=== PATIENT | female | born 1970 ===

== ENCOUNTER 2020-07-06 07:43 | Outpatient (REF) | payer OTHER, SELFPAY | END 2020-07-06 07:44 | disposition home or self-care (01) | LOC: HO.LAB 07:43 | PROVIDERS: Visit Provider Internal Medicine | DX: Z20.828 Contact with and (suspected) exposure to other viral communicable diseases (principal) | CPT/HCPCS: C9803; U0003 ==

== ENCOUNTER 2020-09-24 06:56 | Outpatient (REF) | payer OTHER, SELFPAY | END 2020-09-24 06:57 | disposition home or self-care (01) | LOC: HO.LAB 06:56 | PROVIDERS: Visit Provider Internal Medicine | DX: Z20.822 Contact with and (suspected) exposure to COVID-19 (principal) | CPT/HCPCS: 36415; C9803; U0003; U0005 ==

== ENCOUNTER 2020-10-26 16:22 | Outpatient (REF) | payer OTHER, SELFPAY ==
--- NOTE | ~2020-10-26 | XR_ITS ---
EXAMINATION: XR ABDOMEN WITH DECUBITUS VIEWS CLINICAL INDICATION: Constipation. COMPARISON: None TECHNIQUE: 2 views of the abdomen were obtained. FINDINGS: There is a nonobstructive bowel gas pattern. Gas and stool are seen distally to the rectum without significant stool burden. And IUD overlies the mid pelvis. The osseous structures are unremarkable. XR/XR abdomen w decubitus IMPRESSION: Nonobstructive bowel gas pattern. No significant stool burden.
[2020-10-26 17:38] LABS: MANUAL DIFF FLAG NO
[2020-10-26 17:55] LABS: Basophils Absolute Auto 0.1 X10*3/uL (0.0-0.2); Basophils Percent Auto 0.4 % (0-2); Eosinophils Absolute Auto 0.2 X10*3/uL (0.0-0.4); Eosinophils Percent Auto 1.8 % (0-4); Hematocrit 41.1 % (37-47); Hemoglobin 13.9 g/dl (12.0-16.0); Imm Gran Abs Auto 0.05 X10*3/uL (0.00-0.03); Imm Gran Pct Auto 0.4 % (0.0-0.4); Lymphocytes Percent Auto 23.8 % (20-40); Mean Corpuscular HGB Conc 33.8 g/dl (31.0-35.0); Mean Corpuscular Hemoglobin 33.9 pg (27.0-33.0); Mean Corpuscular Volume 100.2 fL (80-98); Mean Platelet Volume 11.7 fL (9.4-12.3); Monocytes Absolute Auto 0.9 X10*3/uL (0.1-1.2); Monocytes Percent Auto 7.2 % (2-11); Neutrophils Absolute Auto 8.3 X10*3/uL (2.0-8.3); Neutrophils Percent Auto 66.4 % (45-73); Platelet Count 255 X10*3/uL (160-400); Red Cell Distribution Width 11.7 % (11.0-16.0); White Blood Count 12.5 X10*3/uL (4.8-10.8)
[2020-10-26 18:36] LABS: TSH reflex Free T4 1.46 uIU/mL (0.32-4.0)
== END 2020-10-26 16:23 | disposition home or self-care (01) ==
LOC: HO.LAB 16:22
PROVIDERS: PCP Internal Medicine; Visit Provider Nurse Practitioner Family
DX: K59.00 Constipation, unspecified (principal); E78.00 Pure hypercholesterolemia, unspecified
CPT/HCPCS: 36415; 74021; 84443; 85025

== ENCOUNTER 2020-10-27 10:24 | Outpatient (REF) | payer OTHER, SELFPAY ==
[2020-10-27 11:31] LABS: Alanine Aminotransferase 25 U/L (0-31); Albumin Level 3.9 g/dL (3.5-5.0); Alkaline Phosphatase 69 U/L (39-117); Anion Gap 13 (12-20); Aspartate Amino Transferase 23 U/L (5-31); Bilirubin Total 0.6 mg/dL (0.0-1.0); Blood Urea Nitrogen 8 mg/dL (9-16); Calcium 8.4 mg/dL (8.4-10.2); Carbon Dioxide 27 mmol/L (22-29); Chloride 104 mmol/L (96-108); Cholesterol 207 mg/dL; Estimated Glomerular Filt Rate > 60; Glucose Fasting 96 mg/dL (60-99); HDL Cholesterol 40 mg/dL; LDL Cholesterol Calculated 112 mg/dl; Potassium 3.8 mmol/L (3.3-5.1); Sodium 140 mmol/L (135-145); Total Protein 6.6 g/dL (6.5-8.0); Triglycerides 279 mg/dL
== END 2020-10-27 10:25 | disposition home or self-care (01) ==
LOC: HO.LAB 10:24
PROVIDERS: Visit Provider Internal Medicine
DX: E78.5 Hyperlipidemia, unspecified (principal); E78.00 Pure hypercholesterolemia, unspecified
CPT/HCPCS: 36415; 80053; 80061

== ENCOUNTER 2020-12-07 08:07 | Outpatient (REF) | payer OTHER, SELFPAY ==
[2020-12-07 09:40] LABS: MANUAL DIFF FLAG NO
[2020-12-07 09:57] LABS: Basophils Percent Auto 0.4 % (0-2); Eosinophils Absolute Auto 0.3 X10*3/uL (0.0-0.4); Eosinophils Percent Auto 2.8 % (0-4); Hematocrit 42.7 % (37-47); Hemoglobin 14.1 g/dl (12.0-16.0); Imm Gran Abs Auto 0.05 X10*3/uL (0.00-0.03); Imm Gran Pct Auto 0.5 % (0.0-0.4); Lymphocytes Absolute Auto 2.2 X10*3/uL (1.2-4.9); Mean Corpuscular Hemoglobin 32.9 pg (27.0-33.0); Mean Corpuscular Volume 99.8 fL (80-98); Mean Platelet Volume 11.6 fL (9.4-12.3); Monocytes Absolute Auto 0.6 X10*3/uL (0.1-1.2); Monocytes Percent Auto 6.2 % (2-11); Neutrophils Absolute Auto 6.9 X10*3/uL (2.0-8.3); Neutrophils Percent Auto 68.1 % (45-73); Platelet Count 236 X10*3/uL (160-400); Red Blood Count 4.28 X10*6/uL (4.20-5.50); Red Cell Distribution Width 11.8 % (11.0-16.0); White Blood Count 10.1 X10*3/uL (4.8-10.8)
== END 2020-12-07 08:08 | disposition home or self-care (01) ==
LOC: HO.LAB 08:07
PROVIDERS: PCP Internal Medicine; Visit Provider Internal Medicine
DX: D72.819 Decreased white blood cell count, unspecified (principal)
CPT/HCPCS: 36415; 85025

== ENCOUNTER 2020-12-20 15:20 | Outpatient (REF) | payer OTHER, SELFPAY ==
[2020-12-21 13:57] LABS: CRP High Sensitivity 9.5 mg/L
[2020-12-21 14:21] LABS: Transglutaminase Ab IgG 2 U/mL; Transglutaminase IgA 1 U/mL
== END 2020-12-20 15:21 | disposition home or self-care (01) ==
LOC: HO.LAB 15:20
PROVIDERS: PCP Internal Medicine; Visit Provider Nurse Practitioner Family
DX: R19.7 Diarrhea, unspecified (principal); R10.13 Epigastric pain; K64.9 Unspecified hemorrhoids; R74.8 Abnormal levels of other serum enzymes; R10.11 Right upper quadrant pain; Z83.79 Family history of other diseases of the digestive system
CPT/HCPCS: 36415; 83516; 86141; 99202

== ENCOUNTER 2020-12-26 17:04 | Outpatient (REF) | payer OTHER, SELFPAY ==
[2020-12-26 17:58] LABS: Leukocytes Stool Qualitative NEGATIVE (NEGATIVE)
[2020-12-27 08:49] LABS: CDIFF Ag Negative (Negative); CDIFF Internal ctrl Dots and bkg OK (V); CDiff Toxin Negative (Negative)
== END 2020-12-26 17:05 | disposition home or self-care (01) ==
LOC: HO.LNP 17:04
PROVIDERS: Visit Provider Nurse Practitioner Family
DX: R10.13 Epigastric pain (principal); R19.7 Diarrhea, unspecified
CPT/HCPCS: 87045; 87046; 87177; 87209; 87324; 87338; 87449; 89055

== ENCOUNTER 2021-01-07 08:17 | Outpatient (REF) | payer OTHER, SELFPAY ==
--- NOTE | ~2021-01-07 | US_ITS ---
EXAMINATION: US ABDOMEN COMPLETE CLINICAL INFORMATION: Epigastric pain. COMPARISON: None TECHNIQUE: Real-time imaging of the abdominal viscera. FINDINGS: PANCREAS: Normal. ABDOMINAL AORTA: The proximal, mid, and distal segments are normal in caliber. INFERIOR VENA CAVA: Visualized portions are normal. LIVER: Liver echotexture is increased. The liver is normal in size. The liver contour is normal. No focal hepatic lesion. There is no intrahepatic biliary duct dilatation seen. GALLBLADDER: Normal. The gallbladder is physiologically distended without evidence of stones, sludge, polyps, wall thickening or pericholecystic fluid. COMMON BILE DUCT: Normal in caliber measuring 0.3 cm in diameter. RIGHT KIDNEY: Normal. No hydronephrosis. No renal calculi or focal parenchymal lesions. The kidney measures 11.3 cm in maximum dimension. LEFT KIDNEY: Normal. No hydronephrosis. No renal calculi or focal parenchymal lesions. The kidney measures 10.4 cm in maximum dimension. SPLEEN: Normal. The spleen measures 8.2 cm in maximum dimension. FREE FLUID: None. US/US abdomen complete IMPRESSION: Echogenic liver probably representing fatty infiltration otherwise unremarkable exam
== END 2021-01-07 08:18 | disposition home or self-care (01) ==
LOC: HO.US 08:17
PROVIDERS: Visit Provider Nurse Practitioner Family
DX: R10.13 Epigastric pain (principal)
CPT/HCPCS: 76700

== ENCOUNTER 2021-01-22 15:09 | Outpatient (REF) | payer OTHER, SELFPAY ==
[2021-01-22 18:02] LABS: Lipase 22 U/L (8-78)
== END 2021-01-22 15:10 | disposition home or self-care (01) ==
LOC: HO.LAB 15:09
PROVIDERS: PCP Internal Medicine; Visit Provider Nurse Practitioner Family
DX: R10.9 Unspecified abdominal pain (principal); R19.7 Diarrhea, unspecified; R14.0 Abdominal distension (gaseous)
CPT/HCPCS: 36415; 83690; 99212

== ENCOUNTER → 2021-02-26 14:35 | Outpatient (BNVA) | payer OTHER, SELFPAY | PROVIDERS: Visit Provider Nurse Practitioner Family ==

== ENCOUNTER 2021-02-27 14:38 | Outpatient (REF) | payer OTHER, SELFPAY ==
[2021-02-27 15:17] LABS: Hematocrit 42.2 % (37-47); Hemoglobin 14.5 g/dl (12.0-16.0); Mean Corpuscular HGB Conc 34.4 g/dl (31.0-35.0); Mean Corpuscular Volume 98.8 fL (80-98); Mean Platelet Volume 11.2 fL (9.4-12.3); Platelet Count 269 X10*3/uL (160-400); Red Blood Count 4.27 X10*6/uL (4.20-5.50); Red Cell Distribution Width 11.7 % (11.0-16.0); White Blood Count 8.3 X10*3/uL (4.8-10.8)
[2021-02-27 16:56] LABS: Syphilis Screen Nonreactive (Nonreactive)
[2021-02-28 02:40] LABS: CT PCR NOT DETECTED (Not Detect.); NG PCR NOT DETECTED (Not Detect.)
[2021-02-28 08:53] LABS: BV Int Neg Control Negative (Negative); BV Int Pos Control Positive (Positive)
[2021-02-28 11:50] LABS: HBsAGNum1 0.17 S/CO (0.00-0.99); HIV AB/AG Nonreactive (Nonreactive); HIV Num 1 0.09 S/CO (0.00-0.99); Hepatitis B Surface Antigen Negative (Negative)
== END 2021-02-27 14:39 | disposition home or self-care (01) ==
LOC: HO.LAB 14:38
PROVIDERS: Obstetrics & Gynecology; PCP Internal Medicine; Visit Provider Nurse Practitioner Family
DX: Z01.411 Encounter for gynecological examination (general) (routine) with abnormal findings (principal); Z01.84 Encounter for antibody response examination; Z11.3 Encounter for screening for infections with a predominantly sexual mode of transmission; Z11.4 Encounter for screening for human immunodeficiency virus [HIV]; T83.32XA Displacement of intrauterine contraceptive device, initial encounter
CPT/HCPCS: 36415; 85027; 86780; 87340; 87389; 87480; 87491; 87510; 87591; 87660

== ENCOUNTER 2021-03-18 16:13 | Outpatient (REF) | payer OTHER, SELFPAY ==
--- NOTE | ~2021-03-18 | US_ITS ---
EXAMINATION: US PELVIC COMPLETE CLINICAL INFORMATION: Displacement of IUD. Vaginal bleeding. COMPARISON: None TECHNIQUE: Transabdominal and transvaginal imaging of pelvis is performed. FINDINGS: The uterus is anteverted and anteflexed measuring 10.5 cm in length, 7.9 cm in AP and 8.7 cm in transverse dimension. There are multiple uterine fibroids seen. 1. A 4.3 x 4.1 x 3.5 cm fibroid in posterior fundus of uterus. Previously measured 4.0 x 3.3 x 3.3 cm. 2. Fibroid within the lower posterior body of uterus measures 3.1 x 3.2 x 3.2 cm. Previously it measured 2.4 x 2.5 x 2.7 cm. 3. Fibroid within the anterior upper body of uterus measures 2.2 x 1.6 x 1.9 cm. Previously it measured 1.6 x 1.5 x 1.4 cm. 4. New fibroid lesion in the posterior body of uterus measures 3.5 x 3.4 x 3.4 cm. Previously not seen. There is an echogenic IUD visualized in correct position within the endometrial canal. The endometrial thickness is 0.7 cm. Both ovaries are not visualized. There is no free fluid in the cul-de-sac. US/US pelvic and transvaginal IMPRESSION: IUD in correct position within the endometrial canal with mild endometrial thickening measuring 0.7 cm. Multiple uterine fibroids as described above. No free fluid seen in the cul-de-sac.
== END 2021-03-18 16:14 | disposition home or self-care (01) ==
LOC: HO.US 16:13
PROVIDERS: Visit Provider Obstetrics & Gynecology
DX: T83.32XA Displacement of intrauterine contraceptive device, initial encounter (principal)
CPT/HCPCS: 76830; 76856

== ENCOUNTER 2021-03-20 | Outpatient (REF) | payer OTHER, SELFPAY | END 2021-03-20 00:01 | disposition home or self-care (01) | LOC: HO.LNP | PROVIDERS: Visit Provider Nurse Practitioner Family | DX: Z20.822 Contact with and (suspected) exposure to COVID-19 (principal); J40 Bronchitis, not specified as acute or chronic | CPT/HCPCS: U0003; U0005 ==

== ENCOUNTER → 2021-04-02 14:48 | Outpatient (BNVA) | payer OTHER, SELFPAY | PROVIDERS: PCP Internal Medicine; Visit Provider Nurse Practitioner Family ==

== ENCOUNTER → 2021-04-23 10:44 | Outpatient (BNVA) | payer OTHER, SELFPAY | PROVIDERS: PCP Internal Medicine; Visit Provider Obstetrics & Gynecology ==

== ENCOUNTER 2021-05-14 11:17 | Day surgery (SDC) | payer OTHER, SELFPAY ==
[2021-05-09 10:34] VITALS: BMI 34.0
--- NOTE | 2021-05-13 09:00 | HO.ANESPROP2 ---
Documented by User: Dorothy Braun NP 05/13/21 09:01 HPI - Anesthesia Eval Consult details Narrative: 51yo F for Colonoscopy PMFSH Active Problems Active Problems: All Active Problems (Updated 05/09/21 @ 10:33 by Eva Evangelista RN) Bronchitis (Acute) Abnormal uterine bleeding (AUB) (Acute) Myoma (Acute) Mixed hyperlipidemia (Acute) Leukopenia (Acute) Abdominal pain (Acute) Anxiety and depression (Acute) Constipation (Acute) Skin lesion (Acute) Past Medical History Medical History (Updated 05/09/21 @ 10:33 by Eva Evangelista RN) Abdominal pain Anxiety and depression Constipation GERD (gastroesophageal reflux disease) Leukopenia Mixed hyperlipidemia Skin lesion Family History Family History Father No problems noted. Mother Diabetes Hypertension Depression Maternal Aunt Diabetes Daughter Diabetes Surgical History Surgical History (Updated 05/09/21 @ 10:32 by Eva Evangelista RN) History of dilatation and curettage Social History Social History Alcohol intake: current Alcohol intake frequency: holidays/special occasions only Patient Tobacco Use Status: Never used Tobacco Advance Directives Information Provided: No Meds Allergies Allergy/AdvReac Type Severity Reaction Status Date / Time diphtheria,pertussis Allergy Intermediate Swelling Verified 04/02/21 14:49 (acellular),te [From Adacel(Tdap Adolesn/Adult)(PF)] metronidazole [Flagyl] Allergy Intermediate itching Verified 04/02/21 14:49 Home Medications Medication Instructions Recorded Confirmed Last Taken Type levonorgestrel 20 mcg/24 hours (6 INTRAUTERINE 08/20/20 02/26/21 Unknown History yrs) 52 mg intrauterine device (Mirena) Exam Exam Date and Time: May 13, 2021 0900 Height,Weight and Vital Signs: Height 5 ft 1 in Weight 81.647 kg Assessment and Plan Assessment Anesthesia Assessment: Chart Reviewed Documented by User: Ismael Kessler MD 05/14/21 13:19 PMFSH Past Medical History Medical History (Updated 05/09/21 @ 10:33 by Eva Evangelista, RN) Abdominal pain Anxiety and depression Constipation GERD (gastroesophageal reflux disease) Leukopenia Mixed hyperlipidemia Skin lesion Family History Family History Father No problems noted. Mother Diabetes Hypertension Depression Maternal Aunt Diabetes Daughter Diabetes Family history of problems with anesthesia: No Surgical History Surgical History (Updated 05/09/21 @ 10:32 by Eva Evangelista, ONEYDA) History of dilatation and curettage History of Problems with Anesthesia: No Social History Social History Alcohol intake: current Alcohol intake frequency: holidays/special occasions only Patient Tobacco Use Status: Never used Tobacco Advance Directives Information Provided: No Meds Allergies Allergy/AdvReac Type Severity Reaction Status Date / Time diphtheria,pertussis Allergy Intermediate Swelling Verified 04/02/21 14:49 (acellular),te [From Adacel(Tdap Adolesn/Adult)(PF)] metronidazole [Flagyl] Allergy Intermediate itching Verified 04/02/21 14:49 Home Medications Medication Instructions Recorded Confirmed Last Taken Type levonorgestrel 20 mcg/24 hours (6 INTRAUTERINE 08/20/20 02/26/21 Unknown History yrs) 52 mg intrauterine device (Mirena) Exam Airway Mallampati Class: II TM Dist: >3cm Neck ROM: Full Loose/Missing/Broken Teeth: No Assessment and Plan Assessment Anesthesia Assessment: Anesthesia Plan Discussed Final Anesthetic Review Family History of Problems with Anesthesia: No History of Problems with Anesthesia: No NPO: Yes ASA Class: II Final Preanesthetic Review: No Changes in Pt Med Stat, Meds/Allgs Chart Reviewed, Consent Obtained/Reviewed and Anes Risks/Benef Reviewed Patient Risk: Low Procedure Risk: Low Anesthetic Plan Anesthetic Plan: MAC: Disposition: Standard PACU
[2021-05-14 11:43] LABS: UPreg QC Valid YES; Urine Pregnancy NEGATIVE (NEGATIVE)
[2021-05-14 11:44] VITALS: BP 153/85; PULSE 84; RESP 18; TEMP 36.7; O2SAT 99
[2021-05-14] MEDS: Lactated Ringers 1,000 ML 100 ML IVCONT (11:54)
--- NOTE | 2021-05-14 12:25 | MHC.SHP ---
Pre-Procedural Eval Section A Date of Service: 05/14/21 Section B Chief Complaint: Screening Details of Present Illness: Colon cancer screening Relevant Family History (Specify if Yes): No Relevant Social History: None Present Medications: see Short Stay Collaborative assessment Medical History: Significant History (Abdominal pain Anxiety and depression Constipation Leukopenia Mixed hyperlipidemia Skin lesion) History of Previous Operations: No relevant previous surgery Allergies: Allergies Allergy/AdvReac Type Severity Reaction Status Date / Time diphtheria,pertussis Allergy Intermediate Swelling Verified 04/02/21 14:49 (acellular),te [From Adacel(Tdap Adolesn/Adult)(PF)] metronidazole [Flagyl] Allergy Intermediate itching Verified 04/02/21 14:49 Review of Systems Sugical H&P ROS: Negative: Constitution, Cardiovascular, Respiratory and Gastrointestinal Exam Surgical H&P Exam: Normal: Heart, Normal: Lungs and Normal: Extremities Plan Diagnosis/Plan: Unchanged I have reviewed the history and physical and performed a pertinent physical examination on my patient. No changes have occurred unless specified.
--- NOTE | 2021-05-14 13:24 | W.PM.OPN ---
Operative Note Operative Note Date of Service: 05/14/21 Narrative: Pre-op diagnosis:?Colon cancer screening Post-op diagnosis:?other (Colon polyps, diverticulosis, hemorrhoids) Procedure:? COLONOSCOPY TILL CECUM WITH BIOPSIES Consent: Indications for the procedure and potential complications of bleeding, perforation, reaction to medications and missed diagnosis were discussed with the patient and informed consent was obtained. Instrument: Olympus PCF H 190 L variable stiffness pediatric colonoscope Monitoring: Vital signs and clinical assessment, intermittent blood pressure monitoring, continuous EKG monitoring, Pulse oximetry and Carbon Dioxide monitoring were done throughout the procedure. Colon withdrawl time was 16 minutes. Procedure: The patient was placed in the left lateral decubitis position and pre-procedure medications were administered. After a digital rectal examination of the ano-rectum, the video colonoscope was inserted into the rectum and advanced through the colon to the cecum. The colonoscope was slowly withdrawn in a retrograde panoramic fashion and the colon mucosa was carefully examined including a retroflexed view of the rectum. Findings and interventions are described below. Procedure Difficulty: Without difficulty Findings: Terminal Ileum: Not evaluated Cecum:? Normal Ascending Colon:? Scattered mild diverticulosis Transverse Colon:? Scattered mild diverticulosis Descending Colon:? Scattered mild diverticulosis Sigmoid Colon:? A 6-7 mm diminutive appearing polyp removed with a cold bx. Moderate diverticulosis Rectum:? A 5-6 mm diminutive appearing polyp removed with a cold bx Ano-rectum:? Moderate internal hemorrhoids and hypertrophied anal papillae Colon preparation:? Good? Impression and Post Procedure Diagnosis: Colonoscopy Findings: Two diminutive appearing polyps removed Mild to moderate diverticulosis seen in the entire colon Moderate hemorrhoids on retroflexed exam. Plan: Await pathology results Patient has an appointment on 05/31/21 in the [facility] with Rosa Stephens FNP-BC. Repeat Colonoscopy interval based on path results - in 5 years if polyps are adenomatous and 10 years if polyps are hyperplastic. Colon polyps and diverticulosis handouts were given in the discharge area Surgeon:?Sumit Clemente MD Anesthesia:?MAC (Jennifer Freire CRNA) Was an Industrial Truck Driver used for this Procedure?:?Yes Industrial Truck Driver:?Kasia Mansfield Estimated blood loss (mL):?0 Pathology:?other (A. sigmoid polyp? B. rectal polyp) Condition:?stable Disposition:?PACU
[2021-05-14 14:03] VITALS: BP 102/59; PULSE 83; RESP 16; TEMP 36.6; O2SAT 99
[2021-05-14 14:18] VITALS: BP 112/66; PULSE 75; RESP 17; TEMP 36.6; O2SAT 98
== END 2021-05-14 15:02 | disposition home or self-care (01) ==
PROVIDERS: Nurse Practitioner; PCP Internal Medicine; Visit Provider Internal Medicine Gastroenterology
PROC: 0DJD8ZZ Inspection of Lower Intestinal Tract, Via Natural or Artificial Opening Endoscopic (ICD-10-PCS; CPT 45378; principal; 2021-05-14 12:30)
DX: Z12.11 Encounter for screening for malignant neoplasm of colon (principal); K63.5 Polyp of colon; K57.30 Diverticulosis of large intestine without perforation or abscess without bleeding; K64.8 Other hemorrhoids; R14.0 Abdominal distension (gaseous)
CPT/HCPCS: 45380; 81025; 88305

== ENCOUNTER 2021-05-20 09:52 | Outpatient (REF) | payer OTHER, SELFPAY | END 2021-05-20 09:53 | disposition home or self-care (01) | LOC: HO.LAB 09:52 | PROVIDERS: PCP Internal Medicine; Visit Provider Obstetrics & Gynecology | DX: N93.9 Abnormal uterine and vaginal bleeding, unspecified (principal) | CPT/HCPCS: 58100; 88305 ==

== ENCOUNTER 2021-05-31 16:06 | Outpatient (REF) | payer OTHER, SELFPAY ==
--- NOTE | ~2021-05-31 | MM_ITS ---
EXAMINATION: MM SCREENING DIGITAL BREAST TOMOSYNTHESIS, BILATERAL CLINICAL INFORMATION: Screening. Asymptomatic. The lifetime risk of breast cancer based on the Tyrer-Cuzick Model is 6%. COMPARISON: Mammography: 11/29/2018, 11/25/2017, 10/29/2016 TECHNIQUE: Digital breast tomosynthesis is performed in both the craniocaudal and mediolateral oblique views along with computer-aided detection (CAD). Synthesized 2D images are generated from the tomosynthesis. FINDINGS: The breasts are heterogeneously dense, which may obscure small masses (ACR BI-RADS breast composition Category c). Parenchymal pattern is similar to prior studies with fine fibronodular parenchymal pattern is stable bilateral asymmetries. There is no interval mass or architectural abnormality or developing density. No abnormal calcifications. The axilla and skin contours are unremarkable. No significant changes. MM/MM tomosynthesis screening BI IMPRESSION: No mammographic evidence of malignancy. ASSESSMENT: BI-RADS 2: Benign RECOMMENDATION: Routine annual mammography screening. This patient's information was entered into a reminder system with a target due date for their next mammogram.
== END 2021-05-31 16:07 | disposition home or self-care (01) ==
LOC: HO.MAMMO 16:06
PROVIDERS: PCP Internal Medicine; Visit Provider Obstetrics & Gynecology
DX: K21.9 Gastro-esophageal reflux disease without esophagitis (principal); R19.7 Diarrhea, unspecified; K59.00 Constipation, unspecified; K58.9 Irritable bowel syndrome, unspecified; R10.84 Generalized abdominal pain; Z12.31 Encounter for screening mammogram for malignant neoplasm of breast; Z12.11 Encounter for screening for malignant neoplasm of colon
CPT/HCPCS: 77063; 77067; 99212

== ENCOUNTER 2021-06-01 10:52 | Outpatient (REF) | payer OTHER, SELFPAY ==
[2021-06-01 11:51] LABS: Lipase 16 U/L (8-78)
[2021-06-03 08:55] LABS: Folate 16.9 ng/mL (> or = 4.0); Vitamin B12 673 pg/mL (200-900)
== END 2021-06-01 10:53 | disposition home or self-care (01) ==
LOC: HO.LAB 10:52
PROVIDERS: PCP Internal Medicine; Visit Provider Nurse Practitioner Family
DX: K58.0 Irritable bowel syndrome with diarrhea (principal); R10.84 Generalized abdominal pain; R10.9 Unspecified abdominal pain
CPT/HCPCS: 36415; 81479; 82397; 82607; 82656; 82746; 83520; 83690; 86140; 88346; 88350

== ENCOUNTER → 2021-06-05 13:14 | Outpatient (BNVA) | payer OTHER, SELFPAY | PROVIDERS: PCP Internal Medicine; Visit Provider Obstetrics & Gynecology ==

== ENCOUNTER → 2021-07-02 15:14 | Outpatient (BNVA) | payer OTHER, SELFPAY | PROVIDERS: PCP Internal Medicine; Visit Provider Nurse Practitioner Family ==

== ENCOUNTER 2021-09-30 15:05 | Outpatient (REF) | payer OTHER, SELFPAY ==
[2021-09-30 17:05] LABS: Alanine Aminotransferase 33 U/L (0-31); Albumin Level 3.9 g/dL (3.5-5.0); Alkaline Phosphatase 66 U/L (39-117); Aspartate Amino Transferase 32 U/L (5-31); Bilirubin Direct 0.2 mg/dL (0.0-0.5); Bilirubin Total 0.5 mg/dL (0.0-1.0); Total Protein 6.9 g/dL (6.5-8.0)
[2021-10-03 12:36] LABS: Transglutaminase Ab IgG <1.0 U/mL; Transglutaminase IgA <1.0 U/mL
[2021-10-04 13:42] LABS: Vitamin D 25-OH, D2 <4 ng/mL; Vitamin D 25-OH, D3 22 ng/mL; Vitamin D 25-OH, Total 22 ng/mL (30-100)
== END 2021-09-30 15:06 | disposition home or self-care (01) ==
LOC: HO.LAB 15:05
PROVIDERS: PCP Internal Medicine; Referring Provider Internal Medicine; Visit Provider Nurse Practitioner Family
DX: R10.84 Generalized abdominal pain (principal); R10.11 Right upper quadrant pain; E55.9 Vitamin D deficiency, unspecified; R14.0 Abdominal distension (gaseous); K59.01 Slow transit constipation
CPT/HCPCS: 36415; 80076; 82306; 84443; 86364; 99212

== ENCOUNTER 2021-10-02 17:07 | Outpatient (REF) | payer OTHER, SELFPAY ==
[2021-10-09 23:12] LABS: Pancreatic Elastase-1 >500 mcg/g
== END 2021-10-02 17:08 | disposition home or self-care (01) ==
LOC: HO.LNP 17:07
PROVIDERS: Visit Provider Nurse Practitioner Family
DX: R10.84 Generalized abdominal pain (principal)
CPT/HCPCS: 82656

== ENCOUNTER → 2021-12-02 16:10 | Outpatient (BNVA) | payer OTHER, SELFPAY | PROVIDERS: PCP Internal Medicine; Referring Provider Internal Medicine; Visit Provider Nurse Practitioner Family | DX: K59.01 Slow transit constipation (principal); K21.9 Gastro-esophageal reflux disease without esophagitis; R14.0 Abdominal distension (gaseous); R74.01 Elevation of levels of liver transaminase levels | CPT/HCPCS: 99212 ==

== ENCOUNTER 2021-12-16 16:46 | Outpatient (REF) | payer OTHER, SELFPAY ==
[2021-12-16 17:25] LABS: Appearance Urine CLOUDY; Color Urine YELLOW; Glucose Urine UA NEG (NEG); Leukocyte Esterase Urine NEG (NEG); Nitrite Urine NEG (NEG); Specific Gravity - Urine >= 1.030 (1.005-1.025); UACC Culture Trigger NO; Urine Blood 3+ (NEG); Urine Ketones NEG (NEG); Urine Protein TRACE MG/DL (NEG-TRACE)
[2021-12-16 18:46] LABS: Bacteria Urine 4+ /LPF; RBC Urine 30-49 /HPF (0); Squamous Epithelial Cell Urine 2+ /LPF; UACC CULT YES
== END 2021-12-16 16:47 | disposition home or self-care (01) ==
LOC: HO.LAB 16:46
PROVIDERS: PCP Internal Medicine; Visit Provider Internal Medicine
DX: R35.0 Frequency of micturition (principal)
CPT/HCPCS: 81001; 87086; 87088; 87186

== ENCOUNTER → 2022-04-02 15:25 | Outpatient (BNVA) | payer OTHER, SELFPAY | PROVIDERS: PCP Internal Medicine; Visit Provider Nurse Practitioner Family | DX: K21.9 Gastro-esophageal reflux disease without esophagitis (principal); K59.01 Slow transit constipation; R14.0 Abdominal distension (gaseous); Z79.899 Other long term (current) drug therapy | CPT/HCPCS: 99212 ==

== ENCOUNTER 2022-07-04 16:10 | Outpatient (REF) | payer OTHER, SELFPAY ==
[2022-07-05 05:58] LABS: CT PCR NOT DETECTED (Not Detect.); NG PCR NOT DETECTED (Not Detect.)
[2022-07-05 10:24] LABS: BV Int Neg Control Negative (Negative); BV Int Pos Control Positive (Positive)
[2022-07-07 08:23] LABS: Syphilis Screen Nonreactive (Nonreactive)
[2022-07-07 09:06] LABS: HBc Num1 0.06 S/CO (0.00-0.79); HIV AB/AG Nonreactive (Nonreactive); HIV Num 1 0.07 S/CO (0.00-0.99); Hepatitis B Core Antibody Nonreactive (Nonreactive); ~HepC Num1 0.13 S/CO (0.00-0.79); ~Hepatitis C Antibody Nonreactive (Nonreactive)
== END 2022-07-04 16:11 | disposition home or self-care (01) ==
LOC: HO.LNP 16:10
PROVIDERS: Visit Provider Advanced Practice Midwife
DX: Z01.419 Encounter for gynecological examination (general) (routine) without abnormal findings (principal); Z20.2 Contact with and (suspected) exposure to infections with a predominantly sexual mode of transmission
CPT/HCPCS: 86704; 86780; 86803; 87389; 87480; 87491; 87510; 87591; 87660

== ENCOUNTER 2022-07-31 15:47 | Outpatient (REF) | payer OTHER, SELFPAY ==
--- NOTE | ~2022-07-31 | MM_ITS ---
EXAMINATION: MM SCREENING DIGITAL BREAST TOMOSYNTHESIS, BILATERAL CLINICAL INFORMATION: Screening. Asymptomatic. The lifetime risk of breast cancer based on the Tyrer-Cuzick Model is 5.6%. COMPARISON: Mammography: May 31, 2021 and studies dating back to March 19, 2015 TECHNIQUE: Digital breast tomosynthesis is performed in both the craniocaudal and mediolateral oblique views along with computer-aided detection (CAD). Synthesized 2D images are generated from the tomosynthesis. FINDINGS: The breasts are heterogeneously dense, which may obscure small masses (ACR BI-RADS breast composition Category c). There are no significant masses, abnormal calcifications, or other abnormalities. MM/MM tomosynthesis screening BI IMPRESSION: No significant changes ASSESSMENT: BI-RADS 1: Negative RECOMMENDATION: Routine annual mammography screening. This patient's information was entered into a reminder system with a target due date for their next mammogram.
== END 2022-07-31 15:48 | disposition home or self-care (01) ==
LOC: HO.MAMMO 15:47
PROVIDERS: PCP Internal Medicine; Visit Provider Advanced Practice Midwife
DX: Z12.31 Encounter for screening mammogram for malignant neoplasm of breast (principal)
CPT/HCPCS: 77063; 77067

== ENCOUNTER 2022-09-16 11:08 | Outpatient (REF) | payer OTHER, SELFPAY ==
--- NOTE | ~2022-09-16 | XR_ITS ---
EXAMINATION: XR CHEST CLINICAL INFORMATION: Cough. COMPARISON: 06/07/2019 chest radiographs. TECHNIQUE: 2 views of the chest were obtained. FINDINGS: No significant abnormality is noted involving the heart, lungs, mediastinum, bony thorax or soft tissues. XR/XR chest 2V IMPRESSION: No acute cardiopulmonary process.
[2022-09-16 14:55] LABS: Influenza A PCR NEGATIVE (Negative); Influenza B PCR NEGATIVE (Negative); Resp Syncy Virus RNA Qual PCR NEGATIVE (Negative); SARS COV2 PCR INHOUSE NEGATIVE (Negative)
== END 2022-09-16 11:09 | disposition home or self-care (01) ==
LOC: HO.HMGCX 11:08
PROVIDERS: PCP Internal Medicine; Visit Provider Nurse Practitioner Family
DX: Z20.822 Contact with and (suspected) exposure to COVID-19 (principal); R05.9 Cough, unspecified; R09.89 Other specified symptoms and signs involving the circulatory and respiratory systems
CPT/HCPCS: 0241U; 71046

== ENCOUNTER → 2022-10-01 15:53 | Outpatient (BNVA) | payer OTHER, SELFPAY | PROVIDERS: PCP Internal Medicine; Visit Provider Nurse Practitioner Family | DX: R10.84 Generalized abdominal pain (principal); K59.01 Slow transit constipation; K21.9 Gastro-esophageal reflux disease without esophagitis; K52.9 Noninfective gastroenteritis and colitis, unspecified; R14.0 Abdominal distension (gaseous) | CPT/HCPCS: 99212 ==

== ENCOUNTER 2022-10-04 10:38 | Outpatient (REF) | payer OTHER, SELFPAY ==
[2022-10-04 11:56] LABS: Alanine Aminotransferase 17 U/L (0-31); Albumin Level 3.7 g/dL (3.5-5.0); Alkaline Phosphatase 62 U/L (39-117); Anion Gap 14 (12-20); Aspartate Amino Transferase 24 U/L (5-31); Bilirubin Direct < 0.2 mg/dL (0.0-0.5); Bilirubin Total 0.5 mg/dL (0.0-1.0); Blood Urea Nitrogen 9 mg/dL (9-16); Calcium 8.7 mg/dL (8.4-10.2); Carbon Dioxide 23 mmol/L (22-29); Chloride 105 mmol/L (96-108); Cholesterol 282 mg/dL; Estimated Glomerular Filt Rate > 60; Glucose Fasting 91 mg/dL (60-99); HDL Cholesterol 43 mg/dL; LDL Cholesterol Calculated 196 mg/dl; Potassium 5.1 mmol/L (3.3-5.1); Sodium 137 mmol/L (135-145); Total Protein 6.8 g/dL (6.5-8.0); Triglycerides 219 mg/dL
[2022-10-04 12:02] LABS: Appearance Urine Cloudy; Color Urine Yellow; Glucose Urine UA Negative (Negative); Leukocyte Esterase Urine Trace (Negative); Nitrite Urine Negative (Negative); Specific Gravity - Urine 1.025 (1.005-1.025); UMIC TRIGGER UACC YES; Urine Blood Negative (Negative); Urine Ketones Negative (Negative); Urine Protein Trace mg/dL (Neg-Trace)
[2022-10-04 12:05] LABS: Bacteria Urine 1+ (None Seen); Hyaline Casts Urine 0-2 /LPF (0-2); RBC Urine 0-2 /HPF (0-2); WBC Urine 0-5 /HPF (0-5)
[2022-10-04 12:07] LABS: Vitamin D 25-OH Total 20.5 ng/mL (>30)
[2022-10-04 12:26] LABS: Folate 15.8 ng/mL (> or = 4.0); TSH reflex Free T4 1.24 uIU/mL (0.32-4.0); Vitamin B12 570 pg/mL (200-900)
== END 2022-10-04 10:39 | disposition home or self-care (01) ==
LOC: HO.LAB 10:38
PROVIDERS: Absent Provider Nurse Practitioner Family; PCP Internal Medicine; Visit Provider Internal Medicine
DX: R19.7 Diarrhea, unspecified (principal); K59.00 Constipation, unspecified; R10.9 Unspecified abdominal pain; E55.9 Vitamin D deficiency, unspecified; E78.2 Mixed hyperlipidemia
CPT/HCPCS: 36415; 80053; 80061; 80076; 81001; 81003; 82248; 82306; 82607; 82746; 84443

== ENCOUNTER 2023-07-23 16:14 | Outpatient (REF) | payer OTHER, SELFPAY ==
[2023-07-24 12:14] LABS: Rubella IgG Antibody 3.42 Index
== END 2023-07-23 16:15 | disposition home or self-care (01) ==
LOC: HO.LAB 16:14
PROVIDERS: PCP Internal Medicine; Visit Provider Internal Medicine
DX: Z01.84 Encounter for antibody response examination (principal)
CPT/HCPCS: 36415; 86735; 86762; 86765

== ENCOUNTER 2023-08-03 15:33 | Outpatient (REF) | payer OTHER, SELFPAY | END 2023-08-03 15:34 | disposition home or self-care (01) | LOC: HO.MAMMO 15:33 | PROVIDERS: PCP Internal Medicine; Visit Provider Internal Medicine | DX: Z12.31 Encounter for screening mammogram for malignant neoplasm of breast (principal) | CPT/HCPCS: 77063; 77067 ==

== ENCOUNTER → 2023-08-03 16:00 | Outpatient (BNV) | payer OTHER, SELFPAY | PROVIDERS: PCP Internal Medicine; Visit Provider Radiology Diagnostic Radiology | DX: Z12.31 Encounter for screening mammogram for malignant neoplasm of breast (principal) | CPT/HCPCS: 77063; 77067 ==

== ENCOUNTER 2023-08-21 12:45 | Outpatient (AMB) | payer OTHER, SELFPAY ==
[2023-08-21 13:23] VITALS: BP 118/70; BMI 34.0
--- NOTE | 2023-08-21 13:23 | A.OFFVIS_ITS ---
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 Required: No Information Interpreted: non-clinical & clinical Integration Solution Architect: Integration Solution Architect Present (Felipa Temple DASIA) Accompanied by: Self / Same As Patient Allergies diphtheria,pertussis (acellular),te [From Adacel(Tdap Adolesn/Adult)(PF)] Allergy (Intermediate, Verified 08/21/23 13:24) Swelling metronidazole [Flagyl] Allergy (Intermediate, Verified 08/21/23 13:24) itching Is last menstrual period known: No (mirena) HPI HPI Comments History of Present Illness Details She is a postmenopausal woman 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 She is doing well with concerns: bled for the month of March, lightly. No bleeding up until this past month. Has a Mirena in place. She reports stressed in the summer. Attempting to eat a healthy diet with calcium and vitamin D and stays active with exercise. Currently sexually active. Denies any vaginal dryness or irritation. STI testing offered; she accepts. Last pap smear; 2019. Last mammogram; UTD. Colonoscopy is UTD. Denies any family history of breast, ovarian or colon cancer. [facility] Medical History Fibromyalgia Immunization due Physical exam Hypovitaminosis D GERD (gastroesophageal reflux disease) Mixed hyperlipidemia Leukopenia Abdominal pain Anxiety and depression Constipation Skin lesion Surgical History Hx of colonoscopy History of dilatation and curettage Family History Father No problems noted. Mother Diabetes Hypertension Depression Maternal Aunt Diabetes Daughter Diabetes Social History Household Members: None Housing: House Alcohol intake: current Alcohol intake frequency: holidays/special occasions only Patient Tobacco Use Status: Never used Tobacco e-Cigarette/Vaping Use: Never Used Second Hand Smoke Exposure: No service: No Current occupational status: unemployed Current occupational exposures/hazards: No Sexual orientation: Straight/Heterosexual Gender identity: Female Cognitive needs: No Hearing needs: No Vision needs: Yes Female Reproductive History Menstrual control method: progestin IUCD Total pregnancies: 4 Full term: 2 Number of Living Children: 2 Ab spontaneous: 2 Date of last pap smear: 02/02/20 Date of Mammogram: 08/03/23 Review of Systems Const All systems reviewed & are unremarkable except as noted in HPI and below Reports as per HPI Eyes Reports no additional complaints ENT Reports no additional complaints Card Reports no additional complaints Resp Reports no additional complaints GI Reports as per HPI and Reports no additional complaints Reports as per HPI Musc Reports no additional complaints Skin/Breast Reports as per HPI Neuro Reports no additional complaints Psych Reports no additional complaints Endo Reports no additional complaints Casey/Lymph Reports no additional complaints Aller/Immun Reports no additional complaints Physical Exam Vital Signs: Last Vital Signs BP 118/70 08/21/23 13:23 BMI result Body Mass Index 34.0 Const General: cooperative, healthy appearing, no acute distress, well developed and alert Orientation/consciousness: patient oriented x3 HEENT Head: Yes normal to inspection Eyes General: appearance normal, both eyes and all related structures Neck Neck: Yes normal visual inspection Thyroid: Thyroid normal Chest Chest palpation & inspection: normal inspection of the chest and other (no puckering, dimpling, peau de orange, retraction, discharge, masses) Breast/axilla inspection: normal inspection of the breasts Breast/axilla palpation: normal palpation of the breasts Resp Effort & Inspection: normal respiratory effort GI Inspection: Yes normal to inspection Palpation (GI): Soft to palpation Rectal Exam - Female: deferred General: Yes bladder normal to palpation External Female Exam: normal external appearance and normal appearance of the urethra Speculum Exam - Vagina: normal appearance of the vagina, normal palpation and normal vaginal discharge Speculum Exam - Cervix: normal appearance of the cervix, normal palpation and Other cervical findings present (No strings visible-known to have short strings in the past) Bimanual exam- vagina & uterus: normal bimanual exam, normal palpation, uterine size normal, bladder normal to palpation, normal palpation and non-tender Bimanual Exam- Adnexa, other: no masses Skin General skin exam: no rashes or lesions noted Rashes: no rashes Neuro General: patient oriented x3 Cognition (Neuro): normal cognition Extrem General: Yes normal to inspection Psych Attitude: cooperative Thought process: Normal thought process present Assessment & Plan Assessment & Plan (1) Encounter for well woman exam with routine gynecological exam: Code(s): Z01.419 - Encounter for gynecological examination (general) (routine) without abnormal findings (2) Irregular bleeding: Code(s): N92.6 - Irregular menstruation, unspecified Plan Discussed: Current recommendations for pap smears per ASCCP guidelines. Breast awareness, periodic self breast exams and yearly mammogram. Maintain a healthy lifestyle, well balanced diet including Calcium 1,200 mg and Vitamin D 600 IU daily, and routine exercise. Use of condoms for STI if indicated. Plan pelvic ultrasound to check IUD position, consider endometrial biopsy if indicated. Follow-up in person for plan of care and ultrasound results. All of her questions and concerns were addressed to the best of my ability and shared decision making. She is agreeable to the plan of care. 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 This note is constructed using voice recognition software. While every effort has been made to ensure accuracy, retread supervisor errors may have been included. Orders: Orders US pelvic and transvaginal Today N92.6 - Irregular menstruation, unspecified, Z01.419 - Encounter for gynecological examination (general) (routine) without abnormal findings, Z30.431 - Encounter for routine checking of intrauterine contraceptive device Bacterial Vaginosis Panel Today N93.9 - Abnormal uterine and vaginal bleeding, unspecified Thyroid Stimulating Hormone Today N92.6 - Irregular menstruation, unspecified Complete Blood Count no Diff Today N92.6 - Irregular menstruation, unspecified Follicle Stimulating Hormone Today R23.2 - Flushing CT NG by PCR Today N93.9 - Abnormal uterine and vaginal bleeding, unspecified Coding Level of Care Code Est Pt Prev Care 40-64y([id number]) Diagnoses Encounter for well woman exam with routine gynecological exam Z01.419 Irregular bleeding N92.6
== END 2023-08-21 14:02 | disposition home or self-care (01) ==
LOC: HO.HWS 12:45
PROVIDERS: PCP Internal Medicine; Visit Provider Advanced Practice Midwife
DX: Z01.419 Encounter for gynecological examination (general) (routine) without abnormal findings (principal); N92.6 Irregular menstruation, unspecified
CPT/HCPCS: 99396

== ENCOUNTER 2023-08-21 12:45 | Outpatient (REF) | payer OTHER, SELFPAY ==
[2023-08-22 14:19] LABS: BV Int Neg Control Negative (Negative); BV Int Pos Control Positive (Positive)
== END 2023-08-21 12:46 | disposition home or self-care (01) ==
LOC: HO.LNP 12:45
PROVIDERS: PCP Internal Medicine; Visit Provider Advanced Practice Midwife
DX: Z01.419 Encounter for gynecological examination (general) (routine) without abnormal findings (principal); N93.9 Abnormal uterine and vaginal bleeding, unspecified; N92.6 Irregular menstruation, unspecified; Z78.0 Asymptomatic menopausal state; Z97.5 Presence of (intrauterine) contraceptive device
CPT/HCPCS: 87480; 87510; 87660; 99396

== ENCOUNTER 2023-08-21 14:17 | Outpatient (REF) | payer OTHER, SELFPAY ==
[2023-08-21 15:04] LABS: Hematocrit 45.2 % (37.0-47.0); Hemoglobin 15.6 g/dl (12.0-16.0); Mean Corpuscular HGB Conc 34.5 g/dl (31.0-35.0); Mean Corpuscular Volume 98.5 fL (80.0-98.0); Mean Platelet Volume 11.3 fL (9.4-12.3); Platelet Count 299 X10*3/uL (160-400); Red Blood Count 4.59 X10*6/uL (4.20-5.50); Red Cell Distribution Width 11.4 % (11.0-16.0); White Blood Count 7.9 X10*3/uL (4.8-10.8)
[2023-08-21 15:51] LABS: Thyroid Stimulating Hormone 1.43 uIU/mL (0.32-4.0)
[2023-08-21 18:41] LABS: CT PCR NOT DETECTED (Not Detect.); NG PCR NOT DETECTED (Not Detect.)
[2023-08-22 09:53] LABS: Follicle Stimulating Hormone 24.5 mIU/mL
== END 2023-08-21 14:18 | disposition home or self-care (01) ==
LOC: HO.LAB 14:17
PROVIDERS: PCP Internal Medicine; Visit Provider Advanced Practice Midwife
DX: N93.9 Abnormal uterine and vaginal bleeding, unspecified (principal); N92.6 Irregular menstruation, unspecified; R23.2 Flushing
CPT/HCPCS: 0353U; 83001; 84443; 85027

== ENCOUNTER 2023-09-04 12:13 | Outpatient (REF) | payer OTHER, SELFPAY ==
--- NOTE | ~2023-09-04 | US_ITS ---
EXAMINATION: US PELVIS CLINICAL INFORMATION: Irregular menstruation. LMP 3 weeks ago. COMPARISON: Pelvic ultrasound from 02/03/2020 and 03/18/2021. TECHNIQUE: Ultrasound of the pelvis is performed using both transabdominal and transvaginal transducers along with Doppler. Transvaginal imaging is performed due to inadequate visualization transabdominally. FINDINGS: Large, lobulated, heterogeneous leiomyomatous uterus. The anteflexed, anteverted uterus measures approximately 14.8 x 8.8 x 13.4 cm ([id number] x AP x transverse dimension). Multiple leiomyomas are present and a few were selected by the mammography technologist for measurement. Since there are large number of leiomyomas, its difficult to precisely compare currently visualized lesions with those seen in measured on prior exams. Also, some of the leiomyomas are difficult to precisely measure due to the generalized myometrial heterogeneity. A left-sided intramural leiomyoma is approximately 5 x 4.5 x 5.3 cm and a subserosal leiomyoma at the fundus is 3.3 x 2.7 x 4 cm. A posterior intramural leiomyoma is 4.2 x 3.3 x 3.5 cm and right-sided intramural leiomyoma is 3 x 2.7 x 2.6 cm. A leiomyoma within the right uterine body that measures up to 2 cm has mild submucosal extension. There are no intracavitary leiomyomas. The endometrium measures up to 0.5 cm AP. A contraceptive device is well centered within the endometrium. The cervix is normal; it is approximately 3.2 cm in length. No cervical mass. The ovaries are not visualized on transabdominal imaging but are seen on transvaginal imaging. The right ovary is 4.4 x 3.8 x 4.8 cm and contains a simple cyst measuring up to 3.3 cm. No follow-up imaging recommended. Left ovary measures 3.9 x 2.4 x 3.4 cm. Its largest follicle measures up to 2.4 cm. No follow-up imaging recommended. No pelvic free fluid. US/US pelvic and transvaginal IMPRESSION: * Large lobulated leiomyomatous uterus. * Intrauterine contraceptive device is well-positioned. * Benign cysts/follicles are seen within each ovary. * No pelvic free fluid.
== END 2023-09-04 12:14 | disposition home or self-care (01) ==
LOC: HO.HMGCX 12:13
PROVIDERS: PCP Internal Medicine; Visit Provider Advanced Practice Midwife
DX: N92.6 Irregular menstruation, unspecified (principal)
CPT/HCPCS: 76830; 76856

== ENCOUNTER 2023-10-08 14:57 | Outpatient (AMB) | payer OTHER, SELFPAY ==
--- NOTE | 2023-10-08 15:10 | A.OFFVIS_ITS ---
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 Used therapeutically for heavy menstrual bleeding. She reports hot flashes FSH is elevated to 24.5. PFSH Medical History Fibromyalgia Immunization due Physical exam Hypovitaminosis D GERD (gastroesophageal reflux disease) Mixed hyperlipidemia Leukopenia Abdominal pain Anxiety and depression Constipation Skin lesion Surgical History Hx of colonoscopy History of dilatation and curettage Family History Father No problems noted. Mother Diabetes Hypertension Depression Maternal Aunt Diabetes Daughter Diabetes Social History Household Members: None Housing: House Alcohol intake: current Alcohol intake frequency: holidays/special occasions only Patient Tobacco Use Status: Never used Tobacco e-Cigarette/Vaping Use: Never Used Second Hand Smoke Exposure: No service: No Current occupational status: unemployed Current occupational exposures/hazards: No Sexual orientation: Straight/Heterosexual Gender identity: Female Cognitive needs: No Hearing needs: No Vision needs: Yes Female Reproductive History Menstrual Date of last menstrual period: 10/07/23 control method: progestin IUCD (10/2018) Review of Systems Const All systems reviewed & are unremarkable except as noted in HPI and below Physical Exam Vital Signs: Last Vital Signs BP 120/80 10/08/23 15:20 BMI result Body Mass Index 34.0 Const General: cooperative, healthy appearing and no acute distress Orientation/consciousness: patient oriented x3 GI Inspection: Yes normal to inspection Palpation (GI): Soft to palpation and Other GI palpation findings present (Nontender) Rectal Exam - Female: visual inspection normal General: Yes bladder normal to palpation External Female Exam: normal appearance of the urethra Speculum Exam - Vagina: normal appearance of the vagina, normal palpation, normal vaginal discharge and vaginal bleeding Speculum Exam - Cervix: normal appearance of the cervix and normal palpation Bimanual exam- vagina & uterus: normal bimanual exam, normal palpation, uterine size normal, bladder normal to palpation, normal palpation, uterine shape normal, non-tender and other (No visible IUD strings) Bimanual Exam- Adnexa, other: normal adnexae OB/external & speculum: vaginal bleeding Neuro General: patient oriented x3 Office Procedures Endometrial Biopsy Details: The patient is here today for an endometrial biopsy due to AUB to rule out any pathology including atypical, hyperplasia or cancer cells of the uterus. She was counseled regarding anticipatory guidance for the procedure including the risks for pain, infection, bleeding, perforation, potential injury to the tissues may include the cervix, uterus, tubes, bladder and bowels. These injuries may include further treatment and evaluation including surgery, blood transfusions, antibiotics, hospitalizations and anesthesia. Permanent injury and scarring can occur. She was consented for the procedure, and the consent forms were signed. She is agreeable to have the procedure today. All questions were answered. Endometrial Biopsy Procedure: The patient was placed in the dorsal lithotomy position and a sterile speculum inserted. Using aseptic technique for the procedure. The cervix was cleansed w ith Betadine x 3 swabs. A single toothed tenaculum was placed on the cervix for stabilization and the uterus was sounded to 9 cm with a 4mm pipelle for 3 passes. Minimal bleeding was observed. The tissue sample was placed in formalin in a patient labeled container by staff assisting and sent to the pathology department for processing and interpretation. The patient tolerate the procedure well and was in good condition when leaving the department. Endometrial Biopsy Post Procedure Care: Nothing in the vagina including: tampons, douching or intimacy until all the bleeding has subsided. There may be some post procedure bleeding for several days, this bleeding is usually light and may turn to a light brown or pink color. Mild cramps may occurs. Nothing in the vaginal including: tampons, douching, or intimacy until all the bleeding has subsided. You may take an over the counter mild analgesic such as Tylenol or Advil (if no allergies) per the manufactures recommendation on dosing, frequency, and follow the directions completely. Call the office if any: fever (over 100.4), flu like symptoms, abdominal pain (worse than cramping), foul smelling, infected appearing vaginal discharge, or heavy bleeding. If indicated: Use condoms to prevent and STI's, and only after the bleeding has stopped completely. Return to the office in 2 weeks for results and plan of care. This note is constructed using voice recognition software. While every effort has been made to ensure accuracy, data keyer errors may have been included. [id number] Biopsy Results AMB Test Urine AMB Test Urine Negative Last Edit by DASIA Villalobos on 10/08/23 15:22 Results Reviewed Results Reviewed: Laboratory Last Values Tst Clinic Negative 10/08/23 15:21 [facility] [place] [facility] [place] [address] Ultrasound Report Signed Patient: Amarilis Gerber MR#: [id number] : 1970 Acct:[id number] Age/Sex: 53 / F ADM Date: 09/04/23 Loc: HO.HMGCX Attending Dr: Lizzie Godoy CNM Ordering Physician: Lizzie Godoy CNM Date of Service: 09/04/23 Procedure(s): US pelvic and transvaginal Accession Number(s): [id number] cc: Lizzie Godoy CNM; Dayana Schmitz MD~ EXAMINATION: US PELVIS CLINICAL INFORMATION: Irregular menstruation. LMP 3 weeks ago. COMPARISON: Pelvic ultrasound from 02/03/2020 and 03/18/2021. TECHNIQUE: Ultrasound of the pelvis is performed using both transabdominal and transvaginal transducers along with Doppler. Transvaginal imaging is performed due to inadequate visualization transabdominally. FINDINGS: Large, lobulated, heterogeneous leiomyomatous uterus. The anteflexed, anteverted uterus measures approximately 14.8 x 8.8 x 13.4 cm (dszgmw-lm-cdmzvf x AP x transverse dimension). Multiple leiomyomas are present and a few were selected by the lead technologist in cytogenetics for measurement. Since there are large number of leiomyomas, its difficult to precisely compare currently visualized lesions with those seen in measured on prior exams. Also, some of the leiomyomas are difficult to precisely measure due to the generalized myometrial heterogeneity. A left-sided intramural leiomyoma is approximately 5 x 4.5 x 5.3 cm and a subserosal leiomyoma at the fundus is 3.3 x 2.7 x 4 cm. A posterior intramural leiomyoma is 4.2 x 3.3 x 3.5 cm and right-sided intramural leiomyoma is 3 x 2.7 x 2.6 cm. A leiomyoma within the right uterine body that measures up to 2 cm has mild submucosal extension. There are no intracavitary leiomyomas. The endometrium measures up to 0.5 cm AP. A contraceptive device is well centered within the endometrium. The cervix is normal; it is approximately 3.2 cm in length. No cervical mass. The ovaries are not visualized on transabdominal imaging but are seen on transvaginal imaging. The right ovary is 4.4 x 3.8 x 4.8 cm and contains a simple cyst measuring up to 3.3 cm. No follow-up imaging recommended. Left ovary measures 3.9 x 2.4 x 3.4 cm. Its largest follicle measures up to 2.4 cm. No follow-up imaging recommended. No pelvic free fluid. US/US pelvic and transvaginal IMPRESSION: * Large lobulated leiomyomatous uterus. * Intrauterine contraceptive device is well-positioned. * Benign cysts/follicles are seen within each ovary. * No pelvic free fluid. Dictated By: Alex Barajas MD Signed By: <Electronically signed by Alex Barajas MD in OV> 09/08/23 0815 DD/ 1240 TD/TT: Voip Network Technician: PD Assessment & Plan Assessment & Plan (1) Abnormal uterine bleeding (AUB): Comment: On Mirena IUD Code(s): N93.9 - Abnormal uterine and vaginal bleeding, unspecified (2) Fibroid: Code(s): D21.9 - Benign neoplasm of connective and other soft tissue, unspecified Plan Discussed: Ultrasound findings-enlarging fibroid and number of fibroids. Uncertainty if patient is pre menopausal or menopausal at this time frame due to FSH being drawn while using a progesterone IUD, along with the definition of menopause. Could consider taking the IUD out and checking an FSH at day 7, this would increase the risk of possible very heavy bleeding after procedure. Counseled re: Leiomyoma: common pelvic neoplasm. Differential diagnosis-may include leiomyosarcoma which is a rare uterine sarcoma 3-7/100,000, difficult to distinguish from fibroids on ultrasound from uterine sarcoma's. Unlikely any single test will have a highly positive predictive value. Hysterectomy is not recommended for sole purpose of excluding malignant neoplasm. Report any PMB/AUB. Pelvic pressure, bloating, or pain or heavy menstrual bleeding here Expectant management follow up in 6 months, then yearly for stability, continued medical management, consider other options including uterine ablation or surgical removal. Small risk of progesterone hormone and relationship to risk of breast cancer. Referral to MD for level of care-consult with MD appointment to be made. Return to the office in 2 weeks for EMB results. See procedure note. This note is constructed using voice recognition software. While every effort has been made to ensure accuracy, data keyer errors may have been included. Orders: Orders AMB HCG Urine Test Today N93.9 - Abnormal uterine and vaginal bleeding, unspecified Surgical Today N93.9 - Abnormal uterine and vaginal bleeding, unspecified Coding Level of Care Code Procedure Only Diagnoses Abnormal uterine bleeding (AUB) N93.9 Fibroid D21.9 CPT Codes Endometrial Biopsy - CPT: 31097-Djslbizpzde Biopsy ([id number]) Comment Add additional modifier for level of care and fibroids diagnosis
[2023-10-08 15:20] VITALS: BP 120/80; BMI 34.0
== END 2023-10-08 16:13 | disposition home or self-care (01) ==
LOC: HO.HWS 14:57
PROVIDERS: PCP Internal Medicine; Visit Provider Advanced Practice Midwife
DX: N93.9 Abnormal uterine and vaginal bleeding, unspecified (principal)
CPT/HCPCS: 58100

== ENCOUNTER 2023-10-08 14:57 | Outpatient (REF) | payer OTHER, SELFPAY | END 2023-10-08 14:58 | disposition home or self-care (01) | LOC: HO.LAB 14:57 | PROVIDERS: PCP Internal Medicine; Visit Provider Advanced Practice Midwife | DX: N93.9 Abnormal uterine and vaginal bleeding, unspecified (principal); R23.2 Flushing; D21.9 Benign neoplasm of connective and other soft tissue, unspecified; Z97.5 Presence of (intrauterine) contraceptive device; Z32.00 Encounter for pregnancy test, result unknown | CPT/HCPCS: 58100; 81025; 88305 ==

== ENCOUNTER 2023-10-23 13:15 | Outpatient (AMB) | payer OTHER, SELFPAY ==
--- NOTE | 2023-10-23 13:16 | A.OFFVIS_ITS ---
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 She has a history of AUB with abnormal cycles lasting up to a month. History of fibroids. She reports the procedure was very painful. Has an IUD in place for 5 years which will need replacement if she continues to use it for the normal uterine bleeding. [facility] Medical History Fibromyalgia Immunization due Physical exam Hypovitaminosis D GERD (gastroesophageal reflux disease) Mixed hyperlipidemia Leukopenia Abdominal pain Anxiety and depression Constipation Skin lesion Surgical History Hx of colonoscopy History of dilatation and curettage Family History Father No problems noted. Mother Diabetes Hypertension Depression Maternal Aunt Diabetes Daughter Diabetes Social History Household Members: None Housing: House Alcohol intake: current Alcohol intake frequency: holidays/special occasions only Patient Tobacco Use Status: Never used Tobacco e-Cigarette/Vaping Use: Never Used Second Hand Smoke Exposure: No service: No Current occupational status: unemployed Current occupational exposures/hazards: No Sexual orientation: Straight/Heterosexual Gender identity: Female Cognitive needs: No Hearing needs: No Vision needs: Yes Physical Exam Vital Signs: Last Vital Signs BP 108/72 10/23/23 13:18 BMI result Body Mass Index 33.7 Results Reviewed Results Reviewed: Name: Amarilis Gerber Age/Sex: 53/F Attending: Lizzie Godoy CNM : 1970 Submitted by: Lizzie Godoy CNM Copies to: Dayana Schmitz MD MR #: [id number] Status: DEP REF Collected: 10/08/23 Location: .LAB Received: 10/09/23 Diagnosis Endometrium, biopsy: Insufficient endometrium for evaluation; predominantly blood. Clinical History AUB Microscopic Description Microscopic sections reviewed. Material Received Endometrial biopsy Gross Description Received in formalin is a 4.0 cc aggregate of brown-red spongy soft tissue and admixed clotted blood, totally submitted in cassettes A1-2. (DTL) Copies To Lizzie Godoy CNM [address] [place] [address] [address] [place] [address] Dayana Schmitz MD [address] [place] [address] [address] [place] [address] NOTE: Unless otherwise stated, all tissue is formalin-fixed and paraffin- embedded. Some or all of the immunohistochemical tests reported herein may have been developed and their performance characteristics determined by [facility]. They have not been cleared or approved by the U.S. Food and Drug Administration (FDA). However, the FDA has determined that such clearance or approval is not necessary. This laboratory is certified under the Clinical Laboratory Improvement Amendments of 1988 (CLIA) as qualified to perform high complexity clinical laboratory testing. Electronically Signed By: Fidelia Smith 10/13/23 8456 Patient: Amarilis Gerber Age/Sex: 53/F MR#: [id number] Page 1 of 1 Assessment & Plan Assessment & Plan (1) Encounter to discuss test results: Code(s): Z71.2 - Person consulting for explanation of examination or test findings (2) Abnormal uterine bleeding (AUB): Comment: On Mirena IUD Code(s): N93.9 - Abnormal uterine and vaginal bleeding, unspecified (3) Fibroid: Code(s): D21.9 - Benign neoplasm of connective and other soft tissue, unspecified Plan Discussed: EMB sample was inadequate, advised to repeat patient declines to have a repeat procedure in office due to the discomfort. She would like the option of a hysteroscopy. She is interested in a hysterectomy due to her fibroids and irregular bleeding pattern. Consult appointment with Dr. Galo for hysteroscopy to be made. All of her questions and concerns were addressed to the best of my ability and shared decision making. She is agreeable to the plan of care. This note is constructed using voice recognition software. While every effort has been made to ensure accuracy, chief dietitian errors may have been included. Coding Level of Care Code Est Pt Level 3 (98609) Diagnoses Encounter to discuss test results Z71.2 Abnormal uterine bleeding (AUB) N93.9 Fibroid D21.9
[2023-10-23 13:18] VITALS: BP 108/72; BMI 33.7
== END 2023-10-23 14:18 | disposition home or self-care (01) ==
LOC: HO.HWS 13:15
PROVIDERS: PCP Internal Medicine; Visit Provider Advanced Practice Midwife
DX: Z71.2 Person consulting for explanation of examination or test findings (principal); N93.9 Abnormal uterine and vaginal bleeding, unspecified; D21.9 Benign neoplasm of connective and other soft tissue, unspecified
CPT/HCPCS: 99213

== ENCOUNTER → 2023-10-23 13:15 | Outpatient (BNVA) | payer OTHER, SELFPAY | PROVIDERS: PCP Internal Medicine; Visit Provider Advanced Practice Midwife | DX: Z71.2 Person consulting for explanation of examination or test findings (principal); N93.9 Abnormal uterine and vaginal bleeding, unspecified; D21.9 Benign neoplasm of connective and other soft tissue, unspecified | CPT/HCPCS: 99212 ==

== ENCOUNTER 2023-10-26 17:10 | Outpatient (AMB) | payer OTHER, SELFPAY ==
[2023-10-26 17:15] VITALS: BP 140/100; BMI 34.0
--- NOTE | 2023-10-26 17:15 | A.OFFPC_ITS ---
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 Required: No Accompanied by: Self / Same As Patient Allergies diphtheria,pertussis (acellular),te [From Adacel(Tdap Adolesn/Adult)(PF)] Allergy (Intermediate, Verified 10/26/23 17:31) Swelling metronidazole [Flagyl] Allergy (Intermediate, Verified 10/26/23 17:31) itching Medication List - Last Reconciled 10/26/23 by Dayana Huffman MD bupropion HCl 150 mg PO QAM 30 days cholecalciferol (vitamin D3) 50 mcg PO DAILY fenofibrate 54 mg PO DAILY 90 days hydroxyzine HCl 25 mg PO TID PRN 30 days levonorgestrel (Mirena) intrauterine pvujbe-elbesrxt-jngmsea 12,000-38,000 -60,000 unit (Creon) 1 cap PO QID omeprazole 20 mg PO DAILY paroxetine HCl 10 mg PO DAILY 90 days polyethylene glycol 3350 (Miralax) 17 grams PO DAILY sennosides (Natural Senna Laxative) 8.6 mg PO BEDTIME simethicone 125 mg PO BID-QID PRN Tobacco use date assessed: 10/26/23 Dental Screening Dental Screen Date: 10/26/23 Did you have a dental visit in the last 12 months?: No Did you have a dental problem in the last 6 months where you did not have access to dental care?: No Was dental information given to patient?: Patient has dentist HPI HPI Comments History of Present Illness Details This is a 53-year-old female with mild major depression that comes for physical exam. Feels fatigue and tired and I will discontinue paroxetine. No chest pain or shortness of breath last mammogram was 2022. Pap smears are up-to-date. Last colonoscopy was 2020 showing hyperplastic polyp. Compliant with medications. [facility] Medical History Fibromyalgia Immunization due Physical exam Hypovitaminosis D GERD (gastroesophageal reflux disease) Mixed hyperlipidemia Leukopenia Abdominal pain Anxiety and depression Constipation Skin lesion Surgical History Hx of colonoscopy History of dilatation and curettage Family History (Updated 10/26/23 @ 17:36 by Dayana Huffman MD) Father Stroke Mother Diabetes Hypertension Depression Maternal Aunt Diabetes Daughter Diabetes Social History Household Members: None Housing: House Alcohol intake: current Alcohol intake frequency: holidays/special occasions only Patient Tobacco Use Status: Never used Tobacco e-Cigarette/Vaping Use: Never Used Second Hand Smoke Exposure: No service: No Current occupational status: employed Current occupational exposures/hazards: No Sexual orientation: Straight/Heterosexual Gender identity: Female Cognitive needs: No Hearing needs: No Vision needs: Yes Questionnaire PHQ-9 Over the last 2 weeks, how often have you been bothered by any of the following problems? 1. Little interest or pleasure in doing things: not at all 2. Feeling down, depressed, or hopeless: several days 3. Trouble falling or staying asleep, or sleeping too much: several days 4. Feeling tired or having little energy: several days 5. Poor appetite or overeating: several days 6. Feeling bad about yourself - or that you are a failure or have let yourself or your family down: not at all 7. Trouble concentrating on things, such as reading the newspaper or watching te levision: several days 8. Moving or speaking so slowly that other people could have noticed. Or the opposite - being so fidgety or restless that you have been moving around a lot more than usual: not at all 9. Thoughts that you would be better off or of hurting yourself in some way: not at all Total score: 5 Depression Screening Interpretation: Positive Depression Screening Follow-up: Existing condition, In treatment and Community Mental Health Worker F/U Depression Screening Done: Yes 30057 - PHQ-9 Billing: Yes Source: Developed by Drs. Best Delarosa, Shannan Steve, Sergio Haile and colleagues, with an educational kristal from [employer]. Thrive Questionnaire Date Thrive assessed: 10/21/22 AUDIT C Alcohol Use Questionnaire (AUDIT-C) 1. How often do you have a drink containing alcohol?: 4 or more times a week 2. How many drinks containing alcohol do you have on a typical day when you are drinking?: 1 or 2 3. How often do you have six or more drinks on one occasion?: Never Total Score: 4 FATIMAH-7 AMB Questionnaire FATIMAH-7 Date FATIMAH - 7 assessed: 10/26/23 Feeling nervous, anxious, or on edge: 3 = Nearly every day Not being able to stop or control worryin = Not at all Worrying too much about different things: 1 = Several days Trouble relaxin = Not at all Being so restless that it is hard to sit still: 0 = Not at all Becoming easily annoyed or irritable: 0 = Not at all Feeling afraid as if something awful might happen: 1 = Several days Total FATIMAH-7 score (0-4 normal; 5-9 mild; 10-14 moderate; 15-21 severe): 5 Source: Developed by Drs. Best Delarosa, Shannan Steve, Sergio Haile and colleagues, with an educational kristal from [employer]. FATIMAH-7 Assessment Billing FATIMAH-7 Assessment Tool: FATIMAH-7 Assessment 60051 Review of Systems Const All systems reviewed & are unremarkable except as noted in HPI and below Eyes Reports no additional complaints, Denies change in vision and Denies other visual disturbances Card Denies chest pain at rest, Denies chest pain with activity, Denies edema, Denies irregular heart rhythm, Denies claudication, Denies dyspnea, Denies dyspnea on exertion, Denies orthopnea, Denies paroxysmal nocturnal dyspnea and Denies slow heart rate Resp Denies cough, Denies dyspnea and Denies dyspnea on exertion GI Denies abdominal pain, Denies change in bowel habits, Denies excessive flatus, Denies nausea and Denies vomiting Denies urinary incontinence, Denies urinary hesitancy and Denies urinary urgency Musc Denies abnormal gait, Denies atrophy, Denies deformity and Denies limited range of motion Skin/Breast Denies bleeding lesions, Denies changing lesions and Denies rash Neuro Denies abnormal gait and Denies lack of coordination Physical exam (Primary Care) Vital Signs: Last Vital Signs BP 140/100 H 10/26/23 17:15 BMI result Body Mass Index 34.0 Tobacco/Smoking Status: Tobacco use Status Tobacco use date assessed 10/26/23 10/26/23 17:24 Patient Tobacco Use Status Never used Tobacco 10/26/23 17:24 e-Cigarette/Vaping Use Never Used 10/26/23 17:24 PHQ-9: PHQ-9 Score PHQ-9: Total score 5 10/26/23 17:24 Depression Screening Interpretation: Positive Depression Screening Follow-up: Existing condition, In treatment and Community Mental Health Worker F/U Thrive Assessment: Date of Thrive Assessment Date Thrive assessed 10/21/22 10/26/23 17:24 Const Orientation/consciousness: patient oriented x3 HENMT Head: Yes normal to inspection, Yes normocephalic and Yes atraumatic Ears: external ears normal Eyes General: appearance normal, both eyes and all related structures Eyelids: Yes eyelids normal Conjunctivae: conjunctivae normal Neck Neck: Yes normal visual inspection and Yes supple Resp Effort & Inspection: normal respiratory effort Auscultation: clear to auscultation bilaterally Cardio Jugular venous distension: no JVD Rate: regular rate Rhythm: regular rhythm Heart sounds: S1 normal heart sound present and S2 normal heart sound present GI Inspection: Yes normal to inspection Palpation (GI): Soft to palpation and nontender Auscultation: normal bowel sounds Skin General skin exam: no rashes or lesions noted Neuro General: patient oriented x3 and no focal motor deficits Extrem General: Yes full ROM Psych Appearance: grossly normal Assessment and Plan Assessment & Plan (1) Physical exam: Code(s): Z00.00 - Encounter for general adult medical examination without abnormal findings Plan: Repeat in a year. (2) Mild major depression: Code(s): F32.0 - Major depressive disorder, single episode, mild Plan: Continue bupropion. Discontinue paroxetine. Orders: Orders Vitamin D 25-OH Total Today E55.9 - Vitamin D deficiency, unspecified Comprehensive [place]. Panel Fast Today Z00.00 - Encounter for general adult medical examination without abnormal findings Lipid Panel Today E78.5 - Hyperlipidemia, unspecified Medications: Discontinued paroxetine HCl Discontinued Reason: No Longer Medically Relevant 10 mg PO DAILY 90 days 90 tabs 0RF F32.9 - Major depressive disorder, single episode, unspecified, F41.9 - Anxiety disorder, unspecified Coding Level of Care Code Est Pt Prev Care 40-64y(58464) Diagnoses Physical exam Z00.00 Mild major depression F32.0 Additional Codes FATIMAH-7 Assessment Billing - FATIMAH-7 Assessment Tool: FATIMAH-7 Assessment 26147 ([id number]) Time Spent (min) 32
== END 2023-10-26 17:51 | disposition home or self-care (01) ==
PROVIDERS: Visit Provider Internal Medicine
DX: Z00.00 Encounter for general adult medical examination without abnormal findings (principal); F32.0 Major depressive disorder, single episode, mild
CPT/HCPCS: 99396

== ENCOUNTER 2023-11-10 15:31 | Outpatient (REF) | payer OTHER, SELFPAY | END 2023-11-10 15:32 | disposition home or self-care (01) | LOC: HO.LNP 15:31 | PROVIDERS: PCP Internal Medicine; Visit Provider Obstetrics & Gynecology | DX: N93.9 Abnormal uterine and vaginal bleeding, unspecified (principal); Z32.02 Encounter for pregnancy test, result negative; Z97.5 Presence of (intrauterine) contraceptive device | CPT/HCPCS: 58100; 81025; 88305; 88341; 88342 ==

== ENCOUNTER 2023-11-10 15:31 | Outpatient (AMB) | payer OTHER, SELFPAY ==
[2023-11-10 15:35] VITALS: BP 112/70; BMI 35.0
--- NOTE | 2023-11-10 15:35 | A.OFFVIS_ITS ---
Intake Vital Signs 11/10/23 15:35 Height 5 ft 1 in Weight 185 lb 3.013 oz BMI 35.0 BP 112/70 Intake Visit Reasons: consult for hysterescopy Allergies diphtheria,pertussis (acellular),te [From Adacel(Tdap Adolesn/Adult)(PF)] Allergy (Intermediate, Verified 10/26/23 17:31) Swelling metronidazole [Flagyl] Allergy (Intermediate, Verified 10/26/23 17:31) itching HPI HPI Comments History of Present Illness Details Presenting referred from Lizzie Godoy after insufficient endometrium on EMB. [facility] Medical History Fibromyalgia Immunization due Physical exam Hypovitaminosis D GERD (gastroesophageal reflux disease) Mixed hyperlipidemia Leukopenia Abdominal pain Anxiety and depression Constipation Skin lesion Surgical History Hx of colonoscopy History of dilatation and curettage Family History Father Stroke Mother Diabetes Hypertension Depression Maternal Aunt Diabetes Daughter Diabetes Social History Household Members: None Housing: House Alcohol intake: current Alcohol intake frequency: holidays/special occasions only Patient Tobacco Use Status: Never used Tobacco e-Cigarette/Vaping Use: Never Used Second Hand Smoke Exposure: No service: No Current occupational status: employed Current occupational exposures/hazards: No Sexual orientation: Straight/Heterosexual Gender identity: Female Cognitive needs: No Hearing needs: No Vision needs: Yes Physical Exam Vital Signs: Last Vital Signs BP 112/70 11/10/23 15:35 BMI result Body Mass Index 35.0 Office Procedures Endometrial Biopsy Details: The patient was counseled regarding the indication and benefits of endometrial sampling to rule out endometrial pathology including not limited to endometrial hyperplasia or endometrial cancer and others; The alternatives (Either do nothing vs. hysteroscopy D&C) & the risks were discussed with the patient including but not limited: pain, uterine perforation, bleeding, infection, possible injury to bladder, bowel, ureter, possible need for blood transfusion with all its possible risks. The patient verbalized understanding all questions answered and signed consent. Urine test done in the office was negative The patient was placed into the dorsal lithotomy position; a speculum was inserted in the vagina. Using aseptic technique for the procedure, the cervix was cleansed with Betadine. The anterior lip of the cervix was grasped with a single tooth tenaculum. The uterus was sounded to 7 cm with a 4 mm Pipelle was used. Tissues samples were obtained and placed in formalin, in a patient labeled container and sent to the pathology department. At the end of the procedure, there was minimal bleeding noted The patient tolerated the procedure well and was discharged in good condition with the following instructions: Nothing in the vagina until the bleeding stops. No sex until the bleeding stops, to call if any of the following occurs: fever (>100.4), flu-like symptoms, abdominal pain, heavy bleeding, four smelling vaginal discharge. The patient was instructed to schedule a Follow up appointment in 2 weeks to discuss pathology results of the biopsy and treatment options. This note was generated with a voice recognition program. Some errors may have been overlooked during the review of this note. Sometimes these errors may affect the content or meaning of a given sentence. [id number] Biopsy Results AMB Test Urine AMB Test Urine Negative Last Edit by Felipa Temple CMA on 16:07 Assessment & Plan Assessment & Plan (1) Abnormal uterine bleeding (AUB): Comment: On Mirena IUD Code(s): N93.9 - Abnormal uterine and vaginal bleeding, unspecified Plan: Discussed with the patient repeat EMB versus hysteroscopy D&C possible polypectomy. All pros and cons, risks and benefits of each were discussed with the patient, the patient decided to proceed with EMB, EMB done, see procedure note Orders: Orders AMB HCG Urine Test Today Z32.02 - Encounter for test, result negative AMB Endometrial Biopsy Today N93.9 - Abnormal uterine and vaginal bleeding, unspecified Coding Level of Care Code Procedure Only Diagnoses Abnormal uterine bleeding (AUB) N93.9 CPT Codes Endometrial Biopsy - CPT: 66663-Dpejlewdlvi Biopsy ([id number])
== END 2023-11-10 16:09 | disposition home or self-care (01) ==
PROVIDERS: PCP Internal Medicine; Visit Provider Obstetrics & Gynecology
DX: N93.9 Abnormal uterine and vaginal bleeding, unspecified (principal); Z32.02 Encounter for pregnancy test, result negative
CPT/HCPCS: 58100

== ENCOUNTER 2023-11-26 15:30 | Outpatient (AMB) | payer OTHER, SELFPAY ==
[2023-11-26 15:35] VITALS: BP 110/74; BMI 35.0
--- NOTE | 2023-11-26 15:35 | A.OFFVIS_ITS ---
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 The patient has no complaints, no vaginal bleeding, no feverishness chills or abdominal pain. Endometrial biopsy pathology showed the following: Endometrium, biopsy: Predominantly blood with scant benign endometrium with breakdown, and fragments of benign endocervical glandular mucosa; no atypia or carcinoma seen. Comment: The specimen may not be pharmaceutical representative of the endometrium [facility] Medical History Fibromyalgia Immunization due Physical exam Hypovitaminosis D GERD (gastroesophageal reflux disease) Mixed hyperlipidemia Leukopenia Abdominal pain Anxiety and depression Constipation Skin lesion Surgical History Hx of colonoscopy History of dilatation and curettage Family History Father Stroke Mother Diabetes Hypertension Depression Maternal Aunt Diabetes Daughter Diabetes Social History Household Members: None Housing: House Alcohol intake: current Alcohol intake frequency: holidays/special occasions only Patient Tobacco Use Status: Never used Tobacco e-Cigarette/Vaping Use: Never Used Second Hand Smoke Exposure: No Patient : No service: No Current occupational status: employed Current occupational exposures/hazards: No Sexual orientation: Straight/Heterosexual Gender identity: Female Cognitive needs: No Hearing needs: No Vision needs: Yes Female Reproductive History Menstrual Date of last menstrual period: 06/21/20 control method: progestin IUCD Total pregnancies: 2 Full term: 2 Review of Systems Card Reports as per HPI and Reports no additional complaints Resp Reports as per HPI and Reports no additional complaints GI Reports as per HPI and Reports no additional complaints Reports as per HPI Physical Exam Vital Signs: Last Vital Signs BP 110/74 11/26/23 15:35 BMI result Body Mass Index 35.0 Const General: cooperative, healthy appearing and comfortable Resp Effort & Inspection: normal respiratory effort Auscultation: clear to auscultation bilaterally Percussion: percussion normal Cardio Palpation: normal PMI Rate: regular rate Rhythm: regular rhythm Heart sounds: no murmurs and no rubs Peripheral pulses: Peripheral pulses 2+ throughout GI Inspection: Yes normal to inspection Palpation (GI): Soft to palpation, nontender, no guarding, not rigid and No hepatosplenomegaly present Percussion: Yes normal to percussion Auscultation: normal bowel sounds Rectal Exam - Female: deferred Assessment & Plan Assessment & Plan (1) Abnormal uterine bleeding (AUB): Comment: On Mirena IUD Code(s): N93.9 - Abnormal uterine and vaginal bleeding, unspecified Plan: Discussed with the patient the results of the EMB, recommended hysteroscopy D&C possible polypectomy myomectomy with IUD removal. Discussed with the patient the procedure , all benefits and risks including but not limited to inability to complete the procedure , insufficient endometrial tissue for a complete evaluation of the endometrial cavity , bleeding, infection, possible need for blood transfusion with all its risk ( HIV,syphilis, Hepatitis, anaphylaxis shock, others..), injury to bladder, rectum, possible need for laparoscopy/laparotomy or hysterectomy. The patient verbalized understanding an d signed the consent. Instructions given the patient to schedule a 2 week postoperative appointment Coding Level of Care Code Est Pt Level 3 (97026) Diagnoses Abnormal uterine bleeding (AUB) N93.9
== END 2023-11-26 16:12 | disposition home or self-care (01) ==
LOC: HO.HWS 15:30
PROVIDERS: PCP Internal Medicine; Visit Provider Obstetrics & Gynecology
DX: N93.9 Abnormal uterine and vaginal bleeding, unspecified (principal)
CPT/HCPCS: 99213

== ENCOUNTER → 2023-11-26 15:30 | Outpatient (BNVA) | payer OTHER, SELFPAY | PROVIDERS: PCP Internal Medicine; Visit Provider Obstetrics & Gynecology | DX: N93.9 Abnormal uterine and vaginal bleeding, unspecified (principal) | CPT/HCPCS: 99212 ==

== ENCOUNTER 2023-12-01 14:15 | Outpatient (REF) | payer OTHER, SELFPAY ==
[2023-12-01 15:36] LABS: MANUAL DIFF FLAG NO
[2023-12-01 17:09] LABS: Basophils Percent Auto 0.4 % (0-2); Eosinophils Absolute Auto 0.3 X10*3/uL (0.0-0.4); Eosinophils Percent Auto 3.4 % (0-4); Hematocrit 45.7 % (37.0-47.0); Hemoglobin 15.5 g/dl (12.0-16.0); Imm Gran Abs Auto 0.02 X10*3/uL (0.00-0.03); Imm Gran Pct Auto 0.2 % (0.0-0.4); Lymphocytes Absolute Auto 2.2 X10*3/uL (1.2-4.9); Mean Corpuscular HGB Conc 33.9 g/dl (31.0-35.0); Mean Corpuscular Hemoglobin 33.4 pg (27.0-33.0); Mean Corpuscular Volume 98.5 fL (80.0-98.0); Mean Platelet Volume 11.3 fL (9.4-12.3); Monocytes Absolute Auto 0.6 X10*3/uL (0.1-1.2); Monocytes Percent Auto 7.3 % (2-11); Neutrophils Absolute Auto 5.1 x10*3/uL (2.0-8.3); Neutrophils Percent Auto 61.7 % (45-73); Platelet Count 301 X10*3/uL (160-400); Red Blood Count 4.64 X10*6/uL (4.20-5.50); Red Cell Distribution Width 11.7 % (11.0-16.0); White Blood Count 8.3 X10*3/uL (4.8-10.8)
[2023-12-02 14:25] LABS: Class Alternaria alternata 0; Class Aspergillus fumigatus 0; Class Bermuda Grass 0; Class Birch 0; Class Cat Dander 0; Class Cladosporium herbarum 0; Class Cockroach 0; Class Common Ragweed 0; Class Cottonwood 0; Class Derm. pterony 0; Class Dermatophagoides farinae 0; Class Dog Dander 0; Class Elm 0; Class Maple Box Elder 0; Class Mountain Cedar 0; Class Mouse Urine Protein 0; Class Mugwort 0; Class Oak 0; Class Penicillium crysogenum 0; Class Rough Pigweed 0; Class Sheep Sorrel 0; Class Sycamore 0; Class Timothy Grass 0; Class Walnut Tree 0; Class White Ash 0; Class White Mulberry 0; D001 IgE D pteronyssinus <0.10 kU/L; D002 - IgE D farinae <0.10 kU/L; E001 - IgE Cat Dander <0.10 kU/L; E005 - IgE Dog Dander <0.10 kU/L; E072-IgE Mouse Urine <0.10 kU/L; G002 IgE Bermuda Grass <0.10 kU/L; G006 - IgE Timothy Grass <0.10 kU/L; I006-IgE Cockroach, German <0.10 kU/L; Immunoglobulin E 26 kU/L (<OR=114); M001 IgE Penicillium chrysogen <0.10 kU/L; M002 - IgE Cladosporium herbar <0.10 kU/L; M003 - IgE Aspergillus fumigat <0.10 kU/L; M006 - IgE Alternaria alternat <0.10 kU/L; T001 IgE Maple/Box Elder <0.10 kU/L; T003 IgE Common Silver Birch <0.10 kU/L; T006 - IgE Cedar, Mountain <0.10 kU/L; T007 - IgE Oak, White <0.10 kU/L; T008 IgE Elm, American <0.10 kU/L; T010 - IgE Walnut <0.10 kU/L; T011 - IgE Maple Leaf Sycamore <0.10 kU/L; T014 - IgE Cottonwood <0.10 kU/L; T015 - IgE Ash, White <0.10 kU/L; T070 - IgE White Mulberry <0.10 kU/L; W001 - IgE Ragweed, Short <0.10 kU/L; W006 - IgE Mugwort <0.10 kU/L; W014 IgE Pigweed, Common <0.10 kU/L; W018 IgE Sheep Sorrel <0.10 kU/L
[2023-12-02 17:49] LABS: IgA 228 mg/dL (47-310); IgG 1051 mg/dL (600-1640); IgM 307 mg/dL (50-300)
[2023-12-03 13:59] LABS: Immunoglobulin G Subclass 1 535 mg/dL (382-929); Immunoglobulin G Subclass 2 384 mg/dL (241-700); Immunoglobulin G Subclass 3 56 mg/dL (22-178); Immunoglobulin G Total 967 mg/dL (600-1640)
== END 2023-12-01 14:16 | disposition home or self-care (01) ==
LOC: HO.LAB 14:15
PROVIDERS: PCP Internal Medicine; Visit Provider Internal Medicine Pulmonary Disease
DX: J40 Bronchitis, not specified as acute or chronic (principal); R06.00 Dyspnea, unspecified; Z91.09 Other allergy status, other than to drugs and biological substances
CPT/HCPCS: 36415; 82784; 82785; 85025; 86003; 99202

== ENCOUNTER 2023-12-01 14:15 | Outpatient (AMB) | payer OTHER, SELFPAY ==
[2023-12-01 14:42] VITALS: BP 122/82; PULSE 90; O2SAT 99; BMI 33.2
--- NOTE | 2023-12-01 14:42 | MHC.OFFVIS ---
Intake Vital Signs 12/01/23 14:42 Height 5 ft 1 in Weight 175 lb 10.828 oz BMI 33.2 BP 122/82 Blood Pressure Location Rt brachial Position Sitting Pulse 90 Pulse Source Doppler Pulse Oximetry (%) 99 Oxygen Delivery Method Room Air Intake Visit Reasons: dyspnea Allergies diphtheria,pertussis (acellular),te [From Adacel(Tdap Adolesn/Adult)(PF)] Allergy (Intermediate, Verified 11/26/23 15:35) Swelling metronidazole [Flagyl] Allergy (Intermediate, Verified 11/26/23 15:35) itching HPI dyspnea HPI Details 53-year-old lady, nonsmoker, with underlying history of recurrent bronchitis, over the last 4 years slowly worsening, and chronic cough referred for pulmonary evaluation. Patient states that her current bronchitic episodes has been ongoing for 2 months with no response to empiric prednisone and albuterol. Reports cough as nonproductive with significant worsening when laying down or at night. She denies acid reflux. Patient does complain of some environmental allergies. She also has a dog for the last 2 years that coincides with worsening of her symptoms. [facility] Medical History Fibromyalgia Immunization due Physical exam Hypovitaminosis D GERD (gastroesophageal reflux disease) Mixed hyperlipidemia Leukopenia Abdominal pain Anxiety and depression Constipation Skin lesion Surgical History Hx of colonoscopy History of dilatation and curettage Family History Father Stroke Mother Diabetes Hypertension Depression Maternal Aunt Diabetes Daughter Diabetes Social History Household Members: None Housing: House Alcohol intake: current Alcohol intake frequency: holidays/special occasions only Patient Tobacco Use Status: Never used Tobacco e-Cigarette/Vaping Use: Never Used Second Hand Smoke Exposure: No service: No Current occupational status: employed Current occupational exposures/hazards: No Sexual orientation: Straight/Heterosexual Gender identity: Female Cognitive needs: No Hearing needs: No Vision needs: Yes Review of Systems Const Denies daytime sleepiness, Denies excessive sweating, Denies fatigue, Denies fever(s), Denies lethargy, Denies malaise, Denies night sweats, Denies snoring and Denies weight loss Eyes Denies blurry vision and Denies itchy eyes ENT Denies nasal congestion, Denies post nasal drip, Denies sinus pain, Denies sinus pressure and Denies other ( Thrush) Card Denies chest pain, Denies pedal edema, Denies dyspnea, Reports dyspnea on exertion, Denies orthopnea and Denies paroxysmal nocturnal dyspnea Resp Denies cough, Denies hemoptysis, Denies excessive phlegm production, Denies dyspnea, Reports dyspnea on exertion, Denies snoring and Denies wheezing GI Denies abdominal pain and Denies heartburn Musc Denies myalgias, Denies arthralgias and Denies joint swelling Skin/Breast Denies rash Neuro Denies memory loss and Denies seizure-like activity Psych Denies abnormal sleep pattern, Denies anxiety and Denies memory loss Endo Denies excessive sweating, Denies fatigue and Denies heat intolerance Casey/Lymph Denies easy bruising Aller/Immun Denies itchy eyes, Denies seasonal rhinorrhea and Denies wheezing Physical Exam Vital Signs: Last Vital Signs Pulse 90 12/01/23 14:42 BP 122/82 12/01/23 14:42 Pulse Ox 99 12/01/23 14:42 Oxygen Delivery Method Room Air 12/01/23 14:42 BMI result Body Mass Index 33.2 Const General: no acute distress and alert Nutritional Appearance: not obese Orientation/consciousness: Other orientation findings ( oriented) HEENT Head: Yes atraumatic Eyes General: appearance normal, both eyes and all related structures Sclerae: sclerae normal EOM: EOMs intact bilaterally Neck Neck: Yes supple Lymphatic: no lymphadenopathy noted Resp Effort & Inspection: normal respiratory effort and no use of accessory muscles Auscultation: clear to auscultation bilaterally Cardio Rate: regular rate Rhythm: regular rhythm Heart sounds: no gallops, no murmurs and no rubs Skin General skin exam: other ( warm) Extrem General: No clubbing, No cyanosis and No edema Assessment & Plan Assessment & Plan (1) Cough: Code(s): R05.9 - Cough, unspecified Plan: Unclear etiology, may have asthmatic of allergic component. Will start on empiric Breo and the codeine syrup for symptomatic relief. Will obtain immunoglobulins studies. (2) Environmental allergies: Code(s): Z91.09 - Other allergy status, other than to drugs and biological substances Plan: Will obtain IgE level, CBC with differential, and RAST panel for further evaluation. (3) Dyspnea: Code(s): R06.00 - Dyspnea, unspecified Plan: Unclear etiology, will evaluate pulmonary component with pulmonary function test. Orders: Orders Resp Allergy Profile Region I Today Z91.09 - Other allergy status, other than to drugs and biological substances Complete Blood Count Auto Diff Today Z91.09 - Other allergy status, other than to drugs and biological substances Immunoglobulins,IgG IgA IgM Today R05.9 - Cough, unspecified Immunoglobulin G Subclasses Today R05.9 - Cough, unspecified PFT pulmonary function test Today R06.00 - Dyspnea, unspecified Coding Level of Care Code New Pt Level 4 (01744) Diagnoses Cough R05.9 Environmental allergies Z91.09 Dyspnea R06.00
== END 2023-12-01 15:20 | disposition home or self-care (01) ==
PROVIDERS: PCP Internal Medicine; Visit Provider Internal Medicine Pulmonary Disease
DX: R05.9 Cough, unspecified (principal); Z91.09 Other allergy status, other than to drugs and biological substances; R06.00 Dyspnea, unspecified
CPT/HCPCS: 99204

== ENCOUNTER 2023-12-16 14:42 | Outpatient (REF) | payer OTHER, SELFPAY ==
--- NOTE | 2023-12-16 15:24 | PFT_ITS ---
Indication: Cough Spirometry [FEV1 to FVC 87%; FEV1 2.17 L; FVC 2.5 L. No significant response to the bronchodilators noted. Maximum voluntary ventilation 87% predicted] Lung Volumes [Total capacity 75% predicted; expiratory reserve volume 32% predicted] Diffusion Capacity [DLCO 99% predicted] Comparisons [none] Interpretation [No obstructive ventilatory defect. No significant response to bronchodilators noted. Normal maximum voluntary ventilation. Lung volumes demonstrate a restrictive ventilatory defect consistent with mild restrictive lung disease. In addition to that there is a decrease in the expiratory reserve volume secondary to elevated BMI. Diffusing capacity is within normal limits. Clinical correlation warranted. MTDD
== END 2023-12-16 14:43 | disposition home or self-care (01) ==
LOC: HO.RESP 14:42
PROVIDERS: PCP Internal Medicine; Visit Provider Internal Medicine Pulmonary Disease
DX: R06.00 Dyspnea, unspecified (principal)
CPT/HCPCS: 94010; 94640; 94727; 94729

== ENCOUNTER → 2023-12-16 15:24 | Outpatient (BNV) | payer OTHER, SELFPAY | PROVIDERS: PCP Internal Medicine; Visit Provider Hospitalist | DX: R05.9 Cough, unspecified (principal); R06.00 Dyspnea, unspecified | CPT/HCPCS: 94060; 94727; 94729 ==

== ENCOUNTER 2023-12-30 13:45 | Outpatient (AMB) | payer OTHER, SELFPAY ==
[2023-12-30 13:47] VITALS: BP 106/72; PULSE 82; O2SAT 98; BMI 33.6
--- NOTE | 2023-12-30 13:47 | A.OFFVIS_ITS ---
Vital Signs 12/30/23 13:47 Height 5 ft 1 in Weight 178 lb BMI 33.6 BP 106/72 Blood Pressure Location Lt brachial Position Sitting Pulse 82 Pulse Source Doppler Pulse Oximetry (%) 98 Oxygen Delivery Method Room Air Intake Visit Reasons: Dyspnea/PFT Follow Up Allergies diphtheria,pertussis (acellular),te [From Adacel(Tdap Adolesn/Adult)(PF)] Allergy (Intermediate, Verified 12/30/23 13:55) Swelling metronidazole [Flagyl] Allergy (Intermediate, Verified 12/30/23 13:55) itching HPI HPI Dyspnea/PFT Follow Up: Details: 53-year-old lady, nonsmoker, with underlying history of recurrent bronchitis, over the last 4 years slowly worsening, and chronic cough referred for pulmonary evaluation. Patient states that her current bronchitic episodes has been ongoing for 2 months with no response to empiric prednisone and albuterol. Reports cough as nonproductive with significant worsening when laying down or at night. She denies acid reflux. Patient does complain of some environmental allergies. She also has a dog for the last 2 years that coincides with worsening of her symptoms. The last office visit patient has essentially normal pulmonary function test immunologic workup she did try Breo, however she did not have any symptomatic response to it. She does continue to complain of significant dyspnea on exertion. [facility] Medical History (Updated 12/30/23 @ 14:31 by Montez Strange MD) Fibromyalgia Immunization due Physical exam Hypovitaminosis D GERD (gastroesophageal reflux disease) Mixed hyperlipidemia Leukopenia Abdominal pain Anxiety and depression Constipation Skin lesion Surgical History (Updated 12/30/23 @ 10:18 by Eva Evangelista RN) Hx of colonoscopy History of dilatation and curettage Family History Father Stroke Mother Diabetes Hypertension Depression Maternal Aunt Diabetes Daughter Diabetes Social History Household Members: None Housing: House Alcohol intake: current Alcohol intake frequency: holidays/special occasions only Patient Tobacco Use Status: Never used Tobacco e-Cigarette/Vaping Use: Never Used Second Hand Smoke Exposure: No service: No Current occupational status: employed Current occupational exposures/hazards: No Sexual orientation: Straight/Heterosexual Gender identity: Female Cognitive needs: No Hearing needs: No Vision needs: Yes Review of Systems Const Denies daytime sleepiness, Denies excessive sweating, Denies fatigue, Denies fever(s), Denies lethargy, Denies malaise, Denies night sweats, Denies snoring and Denies weight loss Eyes Denies blurry vision and Denies itchy eyes ENT Denies nasal congestion, Denies post nasal drip, Denies sinus pain, Denies sinus pressure and Denies other ( Thrush) Card Denies chest pain, Denies pedal edema, Denies dyspnea, Reports dyspnea on exertion, Denies orthopnea and Denies paroxysmal nocturnal dyspnea Resp Denies cough, Denies hemoptysis, Denies excessive phlegm production, Denies dyspnea, Reports dyspnea on exertion, Denies snoring and Denies wheezing GI Denies abdominal pain and Denies heartburn Musc Denies myalgias, Denies arthralgias and Denies joint swelling Skin/Breast Denies rash Neuro Denies memory loss and Denies seizure-like activity Psych Denies abnormal sleep pattern, Denies anxiety and Denies memory loss Endo Denies excessive sweating, Denies fatigue and Denies heat intolerance Casey/Lymph Denies easy bruising Aller/Immun Denies itchy eyes, Denies seasonal rhinorrhea and Denies wheezing Physical Exam Vital Signs: Last Vital Signs Pulse 82 12/30/23 13:47 BP 106/72 12/30/23 13:47 Pulse Ox 98 12/30/23 13:47 Oxygen Delivery Method Room Air 12/30/23 13:47 BMI result Body Mass Index 33.6 Const General: no acute distress and alert Nutritional Appearance: obese Orientation/consciousness: Other orientation findings ( oriented) HEENT Head: Yes atraumatic Eyes General: appearance normal, both eyes and all related structures Sclerae: sclerae normal EOM: EOMs intact bilaterally Neck Neck: Yes supple Lymphatic: no lymphadenopathy noted Resp Effort & Inspection: normal respiratory effort and no use of accessory muscles Auscultation: clear to auscultation bilaterally Cardio Rate: regular rate Rhythm: regular rhythm Heart sounds: no gallops, no murmurs and no rubs Skin General skin exam: other ( warm) Extrem General: No clubbing, No cyanosis and No edema Assessment & Plan Assessment & Plan (1) Dyspnea: Code(s): R06.00 - Dyspnea, unspecified Category: Medical Plan: Unclear etiology at this time. So far with negative pulmonary workup. Will obtain cardiopulmonary exercise testing. Orders: Orders CA cardiopulmonary stress test Today R06.00 - Dyspnea, unspecified Coding Level of Care Code Est Pt Level 3 (86578) Diagnoses Dyspnea R06.00
== END 2023-12-30 14:05 | disposition home or self-care (01) ==
PROVIDERS: PCP Internal Medicine; Visit Provider Internal Medicine Pulmonary Disease
DX: R06.00 Dyspnea, unspecified (principal)
CPT/HCPCS: 99213

== ENCOUNTER → 2023-12-30 13:45 | Outpatient (BNVA) | payer OTHER, SELFPAY | PROVIDERS: PCP Internal Medicine; Visit Provider Internal Medicine Pulmonary Disease | DX: R06.00 Dyspnea, unspecified (principal) | CPT/HCPCS: 99212 ==

== ENCOUNTER 2024-01-01 06:01 | Day surgery (SDC) | payer OTHER, SELFPAY ==
[2023-12-30 10:21] VITALS: BMI 35.0
--- NOTE | 2023-12-30 12:03 | HO.ANESPROP2 ---
Documented by User: Dorothy Braun NP 12/30/23 12:05 HPI - Anesthesia Eval Consult details Narrative: 53yo F for D&C Hysteroscopy,possible myomectomy,possible polypectomy, interuterine device removal PMFSH Active Problems Active Problems: All Active Problems Environmental allergies (Acute) Dyspnea (Acute) Mild major depression (Acute) Physical exam (Acute) IUD strings lost (Acute) FATIMAH (generalized anxiety disorder) (Acute) [id number] syndrome manifesting as chronic fatigue (Acute) Cough present for greater than 3 weeks (Acute) Cough (Acute) Anxiety (Acute) Otitis media (Acute) Myoma (Acute) Abnormal uterine bleeding (AUB) (Acute) Bronchitis (Acute) Immunization due (Acute) Physical exam (Acute) Hypovitaminosis D (Acute) GERD (gastroesophageal reflux disease) (Acute) Mixed hyperlipidemia (Acute) Leukopenia (Acute) Abdominal pain (Acute) Anxiety and depression (Acute) Constipation (Acute) Skin lesion (Acute) Past Medical History Medical History Fibromyalgia Immunization due Physical exam Hypovitaminosis D GERD (gastroesophageal reflux disease) Mixed hyperlipidemia Leukopenia Abdominal pain Anxiety and depression Constipation Skin lesion Family History Family History Father Stroke Mother Diabetes Hypertension Depression Maternal Aunt Diabetes Daughter Diabetes Family history of problems with anesthesia: No Surgical History Surgical History Hx of colonoscopy History of dilatation and curettage History of Problems with Anesthesia: No Social History Social History Household Members: None Housing: House Alcohol intake: current Alcohol intake frequency: holidays/special occasions only Patient Tobacco Use Status: Never used Tobacco e-Cigarette/Vaping Use: Never Used Second Hand Smoke Exposure: No Are you DNR?: No Advance Directives: No Advance Directives Information Provided: Yes Nutrition Risks: No Nutritional Risk FDLMP: a month ago service: No Current occupational status: employed Current occupational exposures/hazards: No Sexual orientation: Straight/Heterosexual Gender identity: Female Cognitive needs: No Hearing needs: No Vision needs: Yes Meds Allergies Allergy/AdvReac Type Severity Reaction Status Date / Time diphtheria,pertussis Allergy Intermediate Swelling Verified 01/01/24 06:35 (acellular),te [From Adacel(Tdap Adolesn/Adult)(PF)] metronidazole [Flagyl] Allergy Intermediate itching Verified 01/01/24 06:35 Home Medications ?Medication ?Instructions ?Recorded ?Confirmed ?Last Taken ?Type levonorgestrel 21 mcg/24 hours (8 intrauterine 08/20/20 10/26/23 Unknown History yrs) 52 mg intrauterine device (Mirena) albuterol sulfate 90 mcg/actuation 1 puff inhalation Q4H PRN 12/01/23 12/30/23 Unknown History aerosol inhaler (Ventolin HFA) Shortness Of Breath Or Wheezing Exam Height,Weight and Vital Signs: Height 5 ft 1 in Weight 83.915 kg Narrative Narrative: PFT 11/2023 Interpretation [No obstructive ventilatory defect. No significant response to bronchodilators noted. Normal maximum voluntary ventilation. Lung volumes demonstrate a restrictive ventilatory defect consistent with mild restrictive lung disease. In addition to that there is a decrease in the expiratory reserve volume secondary to elevated BMI. Diffusing capacity is within normal limits. Clinical correlation warranted. Assessment and Plan Assessment Anesthesia Assessment: Chart Reviewed Final Anesthetic Review Family History of Problems with Anesthesia: No History of Problems with Anesthesia: No Documented by User: Patricia Ron MD 01/01/24 07:40 [facility] Active Problems Active Problems: All Active Problems Environmental allergies (Acute) Dyspnea (Acute) Mild major depression (Acute) Physical exam (Acute) IUD strings lost (Acute) FATIMAH (generalized anxiety disorder) (Acute) [id number] syndrome manifesting as chronic fatigue (Acute) Cough present for greater than 3 weeks (Acute) Cough (Acute) Anxiety (Acute) Otitis media (Acute) Myoma (Acute) Abnormal uterine bleeding (AUB) (Acute) Bronchitis (Acute) Immunization due (Acute) Physical exam (Acute) Hypovitaminosis D (Acute) GERD (gastroesophageal reflux disease) (Acute) Mixed hyperlipidemia (Acute) Leukopenia (Acute) Abdominal pain (Acute) Anxiety and depression (Acute) Constipation (Acute) Skin lesion (Acute) ? ERNESTO. Snores. Awaiting sleep study Past Medical History Medical History Fibromyalgia Immunization due Physical exam Hypovitaminosis D GERD (gastroesophageal reflux disease) Mixed hyperlipidemia Leukopenia Abdominal pain Anxiety and depression Constipation Skin lesion Family History Family History Father Stroke Mother Diabetes Hypertension Depression Maternal Aunt Diabetes Daughter Diabetes Family history of problems with anesthesia: No Surgical History Surgical History Hx of colonoscopy History of dilatation and curettage History of Problems with Anesthesia: No Social History Social History Household Members: None Housing: House Alcohol intake: current Alcohol intake frequency: holidays/special occasions only Patient Tobacco Use Status: Never used Tobacco e-Cigarette/Vaping Use: Never Used Second Hand Smoke Exposure: No Are you DNR?: No Advance Directives: No Advance Directives Information Provided: Yes Nutrition Risks: No Nutritional Risk FDLMP: a month ago service: No Current occupational status: employed Current occupational exposures/hazards: No Sexual orientation: Straight/Heterosexual Gender identity: Female Cognitive needs: No Hearing needs: No Vision needs: Yes Meds Allergies Allergy/AdvReac Type Severity Reaction Status Date / Time diphtheria,pertussis Allergy Intermediate Swelling Verified 01/01/24 06:35 (acellular),te [From Adacel(Tdap Adolesn/Adult)(PF)] metronidazole [Flagyl] Allergy Intermediate itching Verified 01/01/24 06:35 Home Medications ?Medication ?Instructions ?Recorded ?Confirmed ?Last Taken ?Type levonorgestrel 21 mcg/24 hours (8 intrauterine 08/20/20 10/26/23 Unknown History yrs) 52 mg intrauterine device (Mirena) albuterol sulfate 90 mcg/actuation 1 puff inhalation Q4H PRN 12/01/23 12/30/23 Unknown History aerosol inhaler (Ventolin HFA) Shortness Of Breath Or Wheezing Exam Height,Weight and Vital Signs: Height 5 ft 1 in Weight 83.915 kg Vital Signs Temp Pulse Resp BP Pulse Ox O2 Del Method 01/01/24 06:34 98.2 F 92 18 164/68 H 96 Room Air Airway Mallampati Class: III TM Dist: >3cm Neck ROM: Full Loose/Missing/Broken Teeth: No (Denies broken, loose, missing teeth) Heart: RRR Lungs: CTAB Assessment and Plan Assessment Anesthesia Assessment: Anesthesia Plan Discussed and Chart Reviewed Final Anesthetic Review Family History of Problems with Anesthesia: No History of Problems with Anesthesia: No NPO: Yes ASA Class: III Final Preanesthetic Review: No Changes in Pt Med Stat, Meds/Allgs Chart Reviewed, Consent Obtained/Reviewed and Anes Risks/Benef Reviewed Patient Risk: Intermediate Procedure Risk: Low Assessment/Block/Sedation in SS: Assess/Block/Sedation-SS Anesthetic Plan Anesthetic Plan: GA Disposition: Standard PACU
[2024-01-01 06:20] VITALS: BMI 35.0
[2024-01-01] MEDS: Lactated Ringers 1,000 ML 100 ML IVCONT (06:24)
[2024-01-01 06:34] VITALS: BP 164/68; PULSE 92; RESP 18; TEMP 36.8; O2SAT 96
[2024-01-01 07:16] LABS: UPreg QC Valid YES; Urine Pregnancy NEGATIVE (NEGATIVE)
--- NOTE | 2024-01-01 07:32 | MHC.SHP ---
Pre-Procedural Eval Section A - 24 Hr Update-Section A only Date of Service: 01/01/24 The patient is an INPATIENT: No Changes since office visit: No Cold of Flu in the past 2 weeks, No New Medical Problems, No Changes in Medication and No Patient answered all questions The patient has been examined within 24 hours of the surgical procedure. The History & Physical has been completed within 30 days and I have reviewed it.: Yes Section B - Complete if H&P > 30 days Chief Complaint: Abnormal uterine and vaginal bleeding, Allergies: Allergies Allergy/AdvReac Type Severity Reaction Status Date / Time diphtheria,pertussis Allergy Intermediate Swelling Verified 01/01/24 06:35 (acellular),te [From Adacel(Tdap Adolesn/Adult)(PF)] metronidazole [Flagyl] Allergy Intermediate itching Verified 01/01/24 06:35 Plan Diagnosis/Plan: Unchanged I have reviewed the history and physical and performed a pertinent physical examination on my patient. No changes have occurred unless specified. Time Spent With Patient Time: Total time managing care of this patient today ____ minutes.
--- NOTE | 2024-01-01 08:18 | P.BOP_ITS ---
Brief Operative Note Date of Service: 01/01/24 Pre-op diagnosis: Abnormal uterine bleeding Mirena IUD removal Post-op diagnosis: same (Normal endometrial cavity, IUD in utero) Procedure: Hysteroscopy D&C, Mirena IUD removal Surgeon: John Galo MD Anesthesia: GLMA Was an Master Certified Rv Technician used for this Procedure?: No Estimated blood loss (mL): 0 Pathology: other (Endometrial Scrapping. ) Condition: stable Disposition: PACU
--- NOTE | 2024-01-01 08:19 | W.PM.OPN ---
Operative Note Operative Note Date of Service: 01/01/24 Narrative: Preop Diagnosis: Abnormal uterine bleeding, Mirena IUD removal Operation: Diagnostic Hysteroscopy, Dilataion & Mirena IUD removal Post Op Diagnosis: Normal endometrial and Mirena IUD in utero QBL: Minimal Anesthesia: GLMA Surgeon: John Galo MD Director Clinical Pharmacology: None Complication: None Pathology: Endometrial Scrapings Procedure: The patient was put in the dorsal lithotomy position, scrubbed, and draped in the usual manner. A sterile speculum was inserted in the patient's vagina. The anterior lip of the cervix was grasped with a single tooth tenaculum. The cervix was dilated up to 5 mm, then the scope was inserted in the patient's uterus. Inspection revealed , Mirena IUD in utero and normal endocervical & endometrial cavity with no evidence of pathology. Using hysteroscopic grasper the IUD was grasped and pulled out the uterine cavity with no complication. The scope was taken out of the uterine cavity , then sharp curetting was carried on with no complications. At the end of the procedure, all instruments were taken out of the patient uterine and vaginal cavity. The single tooth tenaculum was removed and homeostasis was assured using pressure. The patient tolerated the procedure well and was transferred to the PACU in a stable condition.
[2024-01-01 08:24] VITALS: BP 142/81; PULSE 97; RESP 18; TEMP 37.2; O2SAT 98
[2024-01-01 08:29] VITALS: BP 147/79; PULSE 88; RESP 18; O2SAT 96
[2024-01-01 08:34] VITALS: BP 145/86; PULSE 86; RESP 17; O2SAT 92
[2024-01-01 08:39] VITALS: BP 145/88; PULSE 81; RESP 17; O2SAT 96
[2024-01-01 08:54] VITALS: BP 137/81; PULSE 86; RESP 18; TEMP 36.4; O2SAT 96
== END 2024-01-01 09:00 | disposition home or self-care (01) ==
PROVIDERS: Anesthesiology; PCP Internal Medicine; Visit Provider Obstetrics & Gynecology
PROC: 0UDB8ZZ Extraction of Endometrium, Via Natural or Artificial Opening Endoscopic (ICD-10-PCS; CPT 58558; principal; 2024-01-01 07:30)
DX: N93.9 Abnormal uterine and vaginal bleeding, unspecified (principal); Z30.432 Encounter for removal of intrauterine contraceptive device; M79.7 Fibromyalgia; F41.8 Other specified anxiety disorders; E55.9 Vitamin D deficiency, unspecified; Z88.8 Allergy status to other drugs, medicaments and biological substances; Z79.899 Other long term (current) drug therapy
CPT/HCPCS: 58558; 81025; 88300; 88305; J1100; J1885; J2250; J2405; J2704; J3010

== ENCOUNTER → 2024-01-01 06:01 | Outpatient (BNV) | payer OTHER, SELFPAY | PROVIDERS: PCP Internal Medicine; Visit Provider Obstetrics & Gynecology | DX: N93.9 Abnormal uterine and vaginal bleeding, unspecified (principal); Z30.432 Encounter for removal of intrauterine contraceptive device | CPT/HCPCS: 58558 ==

== ENCOUNTER 2024-01-28 15:47 | Outpatient (AMB) | payer OTHER, SELFPAY ==
--- NOTE | 2024-01-28 15:57 | A.OFFVIS_ITS ---
Vital Signs 01/28/24 15:58 Height 5 ft 1 in Weight 181 lb BMI 34.2 BP 118/70 Intake Visit Reasons: post op Stage Hand Required: No Information Interpreted: non-clinical & clinical Accompanied by: Self / Same As Patient Allergies diphtheria,pertussis (acellular),te [From Adacel(Tdap Adolesn/Adult)(PF)] Allergy (Intermediate, Verified 01/28/24 16:00) Swelling metronidazole [Flagyl] Allergy (Intermediate, Verified 01/28/24 16:00) itching HPI Comments Details: The patient is presenting post hysteroscopy D&C no complaints minimal vaginal bleeding no feverishness chills or abdominal pain. The pathology showed the following: Endometrium, biopsy: Predominantly blood with scant benign endometrium with breakdown, and fragments of benign endocervical glandular mucosa; no atypia or carcinoma seen. Comment: The specimen may not be renewals representative of the endometrium The following workup was done.: H&H= 15.5/45.7 TSH, GC and chlamydia were negative. FSH elevated in the menopausal range Endometrial biopsy pathology showed the following: Endometrium, biopsy: Predominantly blood with scant benign endometrium with breakdown, and fragments of benign endocervical glandular mucosa; no atypia or carcinoma seen. Comment: The specimen may not be renewals representative of the endometrium Co testing was done in 02/10 was negative. Mammogram was done in 08/15 was BI-RADS 1. Pelvic ultrasound showed the following: Large, lobulated, heterogeneous leiomyomatous uterus. The anteflexed, anteverted uterus measures approximately 14.8 x 8.8 x 13.4 cm (hermrb-jb-loypvi x AP x transverse dimension). Multiple leiomyomas are present and a few were selected by the operating room surgical technologist for measurement. Since there are large number of leiomyomas, its difficult to precisely compare currently visualized lesions with those seen in measured on prior exams. Also, some of the leiomyomas are difficult to precisely measure due to the generalized myometrial heterogeneity. A left-sided intramural leiomyoma is approximately 5 x 4.5 x 5.3 cm and a subserosal leiomyoma at the fundus is 3.3 x 2.7 x 4 cm. A posterior intramural leiomyoma is 4.2 x 3.3 x 3.5 cm and right-sided intramural leiomyoma is 3 x 2.7 x 2.6 cm. A leiomyoma within the right uterine body that measures up to 2 cm has mild submucosal extension. There are no intracavitary leiomyomas. The endometrium measures up to 0.5 cm AP. A contraceptive device is well centered within the endometrium. The cervix is normal; it is approximately 3.2 cm in length. No cervical mass. The ovaries are not visualized on transabdominal imaging but are seen on transvaginal imaging. The right ovary is 4.4 x 3.8 x 4.8 cm and contains a simple cyst measuring up to 3.3 cm. No follow-up imaging recommended. Left ovary measures 3.9 x 2.4 x 3.4 cm. Its largest follicle measures up to 2.4 cm. No follow-up imaging recommended. No pelvic free fluid. [facility] Medical History Fibromyalgia Immunization due Physical exam Hypovitaminosis D GERD (gastroesophageal reflux disease) Mixed hyperlipidemia Leukopenia Abdominal pain Anxiety and depression Constipation Skin lesion Surgical History Hx of colonoscopy History of dilatation and curettage Family History Father Stroke Mother Diabetes Hypertension Depression Maternal Aunt Diabetes Daughter Diabetes Social History Household Members: None Housing: House Alcohol intake: current Alcohol intake frequency: holidays/special occasions only Patient Tobacco Use Status: Never used Tobacco e-Cigarette/Vaping Use: Never Used Second Hand Smoke Exposure: No service: No Current occupational status: employed Current occupational exposures/hazards: No Sexual orientation: Straight/Heterosexual Gender identity: Female Cognitive needs: No Hearing needs: No Vision needs: Yes Review of Systems Const All systems reviewed & are unremarkable except as noted in HPI and below Reports as per HPI and Reports no additional complaints GI Reports no additional complaints Reports no additional complaints Assessment & Plan Assessment & Plan (1) Abnormal uterine bleeding (AUB): Comment: FSH elevated Code(s): N93.9 - Abnormal uterine and vaginal bleeding, unspecified Category: Medical Plan: Discussed with the patient elevated FSH in the menopausal range, Mirena taken out during the procedure. Discussed with the patient the results the pathology showing benign endometrium with no evidence of endometrial hyperplasia and/or malignancy. Discussed with the patient the sensitivity, specificity, false-p ositive false-negative rate of endometrial scraping to rule out endometrial hyperplasia or malignancy. Instructions given to patient to call in case of recurrence of her vaginal bleeding. All questions answered, the patient verbalized understanding (2) Myoma: Code(s): D21.9 - Benign neoplasm of connective and other soft tissue, unspecified Category: Medical Plan: Discussed with the patient the findings on pelvic ultrasound & the risk of myosa rcoma; discussed with the patient the options of treatment including expectant management versus hysterectomy; the pros and cons, risks benefits of each approach were discussed with the patient including the fact that in cases of myosarcoma, surgical treatment can lead to early diagnosis and positively affects the prognosis; after further discussion, the patient decided to proceed with expectant management. Will repeat pelvic ultrasound in six-months. Instructions given to patient to call in case any of the following occurs: pressure symptoms, abnormal uterine bleeding, pelvic pain; and to schedule a six-month ultrasound and a follow-up appointment . All questions answered, the patient verbalized understanding and agreed with the plan . Orders: Orders US pelvic and transvaginal 6 Months D21.9 - Benign neoplasm of connective and other soft tissue, unspecified Coding Level of Care Code Est Pt Level 3 (11660) Diagnoses Abnormal uterine bleeding (AUB) N93.9 Myoma D21.9
[2024-01-28 15:58] VITALS: BP 118/70; BMI 34.2
== END 2024-01-28 16:12 | disposition home or self-care (01) ==
LOC: HO.HWS 15:47
PROVIDERS: PCP Internal Medicine; Visit Provider Obstetrics & Gynecology
DX: N93.9 Abnormal uterine and vaginal bleeding, unspecified (principal); D21.9 Benign neoplasm of connective and other soft tissue, unspecified
CPT/HCPCS: 99213

== ENCOUNTER → 2024-01-28 15:47 | Outpatient (BNVA) | payer OTHER, SELFPAY | PROVIDERS: PCP Internal Medicine; Visit Provider Obstetrics & Gynecology | DX: N93.9 Abnormal uterine and vaginal bleeding, unspecified (principal); D21.9 Benign neoplasm of connective and other soft tissue, unspecified | CPT/HCPCS: 99212 ==

== ENCOUNTER 2024-02-03 15:47 | Outpatient (AMB) | payer OTHER, SELFPAY ==
[2024-02-03 15:48] VITALS: BP 127/77; PULSE 92; O2SAT 97; BMI 34.0
--- NOTE | 2024-02-03 15:48 | MHC.OFFVIS ---
Vital Signs 02/03/24 15:48 Height 5 ft 1 in Weight 180 lb BMI 34.0 BP 127/77 Blood Pressure Location Rt brachial Position Sitting Pulse 92 Pulse Source Doppler Pulse Oximetry (%) 97 Oxygen Delivery Method Room Air Intake Visit Reasons: Dyspnea Allergies diphtheria,pertussis (acellular),te [From Adacel(Tdap Adolesn/Adult)(PF)] Allergy (Intermediate, Verified 01/28/24 16:00) Swelling metronidazole [Flagyl] Allergy (Intermediate, Verified 01/28/24 16:00) itching HPI HPI Dyspnea: Details: 53-year-old lady, nonsmoker, with underlying history of recurrent bronchitis, over the last 4 years slowly worsening, and chronic cough referred for pulmonary evaluation. Patient states that her current bronchitic episodes has been ongoing for 2 months with no response to empiric prednisone and albuterol. Reports cough as nonproductive with significant worsening when laying down or at night. She denies acid reflux. Patient does complain of some environmental allergies. She also has a dog for the last 2 years that coincides with worsening of her symptoms. After the last office visit patient has cardiopulmonary exercise test which was normal showing no cardiac or pulmonary limitation to her exercise capacity and patient able to achieve normal exercise capacity. [facility] Medical History Fibromyalgia Immunization due Physical exam Hypovitaminosis D GERD (gastroesophageal reflux disease) Mixed hyperlipidemia Leukopenia Abdominal pain Anxiety and depression Constipation Skin lesion Surgical History Hx of colonoscopy History of dilatation and curettage Family History Father Stroke Mother Diabetes Hypertension Depression Maternal Aunt Diabetes Daughter Diabetes Social History Household Members: None Housing: House Alcohol intake: current Alcohol intake frequency: holidays/special occasions only Patient Tobacco Use Status: Never used Tobacco e-Cigarette/Vaping Use: Never Used Second Hand Smoke Exposure: No service: No Current occupational status: employed Current occupational exposures/hazards: No Sexual orientation: Straight/Heterosexual Gender identity: Female Cognitive needs: No Hearing needs: No Vision needs: Yes Review of Systems Const Denies daytime sleepiness, Denies excessive sweating, Denies fatigue, Denies fever(s), Denies lethargy, Denies malaise, Denies night sweats, Denies snoring and Denies weight loss Eyes Denies blurry vision and Denies itchy eyes ENT Denies nasal congestion, Denies post nasal drip, Denies sinus pain, Denies sinus pressure and Denies other ( Thrush) Card Denies chest pain, Denies pedal edema, Denies dyspnea, Denies orthopnea and Denies paroxysmal nocturnal dyspnea Resp Denies cough, Denies hemoptysis, Denies excessive phlegm production, Denies dyspnea, Denies snoring and Denies wheezing GI Denies abdominal pain and Denies heartburn Musc Denies myalgias, Denies arthralgias and Denies joint swelling Skin/Breast Denies rash Neuro Denies memory loss and Denies seizure-like activity Psych Denies abnormal sleep pattern, Denies anxiety and Denies memory loss Endo Denies excessive sweating, Denies fatigue and Denies heat intolerance Casey/Lymph Denies easy bruising Aller/Immun Denies itchy eyes, Denies seasonal rhinorrhea and Denies wheezing Physical Exam Vital Signs: Last Vital Signs Pulse 92 02/03/24 15:48 BP 127/77 02/03/24 15:48 Pulse Ox 97 02/03/24 15:48 Oxygen Delivery Method Room Air 02/03/24 15:48 BMI result Body Mass Index 34.0 Const General: no acute distress and alert Nutritional Appearance: not obese Orientation/consciousness: Other orientation findings ( oriented) HEENT Head: Yes atraumatic Eyes General: appearance normal, both eyes and all related structures Sclerae: sclerae normal EOM: EOMs intact bilaterally Neck Neck: Yes supple Lymphatic: no lymphadenopathy noted Resp Effort & Inspection: normal respiratory effort and no use of accessory muscles Auscultation: clear to auscultation bilaterally Cardio Rate: regular rate Rhythm: regular rhythm Heart sounds: no gallops, no murmurs and no rubs Skin General skin exam: other ( warm) Extrem General: No clubbing, No cyanosis and No edema Assessment & Plan Assessment & Plan (1) Dyspnea: Code(s): R06.00 - Dyspnea, unspecified Category: Medical Plan: Results of cardiopulmonary exercise test reviewed, no cardiac or pulmonary limitation to exercise. Patient is able to achieve predicted maximum exercise capacity. Likely underlying cause is deconditioning. Patient has been advised on gradual exercise program. Coding Level of Care Code Est Pt Level 3 (81969) Diagnoses Dyspnea R06.00
== END 2024-02-03 16:18 | disposition home or self-care (01) ==
PROVIDERS: PCP Internal Medicine; Visit Provider Internal Medicine Pulmonary Disease
DX: R06.00 Dyspnea, unspecified (principal)
CPT/HCPCS: 99213

== ENCOUNTER → 2024-02-03 15:47 | Outpatient (BNVA) | payer OTHER, SELFPAY | PROVIDERS: PCP Internal Medicine; Visit Provider Internal Medicine Pulmonary Disease | DX: R06.00 Dyspnea, unspecified (principal) | CPT/HCPCS: 99212 ==

== ENCOUNTER 2024-02-13 13:48 | Emergency (ER) | payer OTHER, SELFPAY ==
[2024-02-13 13:50] VITALS: BP 159/84; PULSE 78; RESP 18; TEMP 36.6; O2SAT 98; BMI 34.0
--- NOTE | 2024-02-13 13:50 | ED_ITS ---
HPI - General Adult General Chief complaint: Vaginal Bleeding Stated complaint: VAGINAL BLEEDING Time Seen by Provider: 02/13/24 14:12 Source: patient Mode of arrival: ambulatory Limitations: no limitations History of Present Illness ED Provider: Bridgett Rodriguez APRN HPI narrative: 53 yo female with history of asthma, anxiety, depression presents to the ER with complaints of heavy vaginal bleeding since yesterday at 01:00. Patient reports that she has a history of a myoma and abnormal uterine bleeding followed by Dr Galo. she did have a hysteroscopy and endometrial biopsy on December 31 which was negative for malignancy. At that time she did have a Mirena that was removed as it was determined she no longer needed contraception as she is perimenopausal. She reports that since yesterday she has been using 1 pad or tampon hourly due to heavy bleeding. She denies any clots. She does have some lower abdominal cramping and lower back pain associated with this. She spoke to Dr. Galo who recommended she come into the ER to be evaluated due to the heavy bleeding. She denies any dizziness, weakness. Related Data Home Medications ?Medication ?Instructions ?Recorded ?Confirmed levonorgestrel 21 mcg/24 hours (8 intrauterine 08/20/20 10/26/23 yrs) 52 mg intrauterine device (Mirena) albuterol sulfate 90 mcg/actuation 1 puff inhalation Q4H PRN 12/01/23 12/30/23 aerosol inhaler (Ventolin HFA) Shortness Of Breath Or Wheezing Previous Rx's ?Medication ?Instructions ?Recorded gtudyk-[id number]-pngfuou 1 cap PO QID #120 caps 04/02/22 12,000-38,000-60,000 unit capsule,delayed rel (Creon) polyethylene glycol 3350 17 17 g PO DAILY #510 grams 10/01/22 gram/dose oral powder (Miralax) sennosides 8.6 mg tablet (Natural 8.6 mg PO BEDTIME constipation #90 10/01/22 Senna Laxative) tabs hydroxyzine HCl 25 mg tablet 25 mg PO TID PRN anxiety 30 days 10/27/22 #90 tabs omeprazole 20 mg capsule,delayed 20 mg PO DAILY #30 caps 04/30/23 release simethicone 125 mg capsule 125 mg PO BID-QID PRN abdominal 04/30/23 distention #120 caps fenofibrate 54 mg tablet 54 mg PO DAILY 90 days #90 tabs 09/15/23 Breo Ellipta 200 mcg-25 mcg/dose 1 inh inhalation DAILY 30 days #1 12/01/23 powder for inhalation (fluticasone ea furoate-vilanterol) codeine 10 mg-guaifenesin 100 mg/5 10 ml PO Q4-6H PRN cough 14 days 12/01/23 mL oral liquid #473 mL cholecalciferol (vitamin D3) 50 50 mcg PO DAILY #30 caps 12/11/23 mcg (2,000 unit) capsule bupropion HCl 150 mg 24 hr tablet, 150 mg PO QAM 30 days #30 tabs 01/09/24 extended release medroxyprogesterone 10 mg tablet 10 mg PO DAILY #30 tabs 02/13/24 (Provera) Allergies Allergy/AdvReac Type Severity Reaction Status Date / Time diphtheria,pertussis Allergy Intermediate Swelling Verified 02/13/24 13:52 (acellular),te [From Adacel(Tdap Adolesn/Adult)(PF)] metronidazole [Flagyl] Allergy Intermediate itching Verified 02/13/24 13:52 Review of Systems 2 Review of Systems: Yes all other systems are reviewed and are negative Constitutional: Constitutional: Reports no additional constitutional complaints, Denies body ache(s), Denies chills, Denies fever(s), Denies headache(s) and Denies weakness Eyes: Eyes: Reports no additional eye complaints and Denies change in vision ENT: Reports system reviewed and no additional complaints, except as documented, Denies dizziness, Denies headache(s), Denies nasal congestion, Denies nasal discharge and Denies neck pain Cardiovascular: Cardiovascular: Reports no additional cardiovascular complaints, Denies chest pain, Denies leg edema and Denies dyspnea Respiratory: Respiratory: Reports no additional respiratory complaints, Denies cough and Denies dyspnea Gastrointestinal: Gastrointestinal: Reports no additional gastrointestinal complaints, Denies abdominal pain, Denies diarrhea, Denies nausea and Denies vomiting Genitourinary: Genitourinary: Reports no additional female genitourinary complaints, Reports abnormal vaginal bleeding and Denies urinary incontinence Musculoskeletal: Musculoskeletal: Reports no additional musculoskeletal complaints, Denies back pain, Denies arthralgias, Denies joint swelling, Denies neck pain, Denies numbness and Denies tingling Integumentary/Breasts: Skin/Breast: Reports system reviewed and no additional complaints, except as docu and Denies rash Neurologic: Reports system reviewed and no additional complaints, except as documented, Denies Abnormal speech present, Denies dizziness, Denies headache(s), Denies numbness, Denies tingling and Denies weakness PMFSH Past Medical History Attestation statement: The following information was validated with the patient. Source: old records reviewed and nursing notes reviewed Medical History Fibromyalgia Immunization due Physical exam Hypovitaminosis D GERD (gastroesophageal reflux disease) Mixed hyperlipidemia Leukopenia Abdominal pain Anxiety and depression Constipation Skin lesion Surgical History Hx of colonoscopy History of dilatation and curettage Family History Family History Father Stroke Mother Diabetes Hypertension Depression Maternal Aunt Diabetes Daughter Diabetes Social History Social History Household Members: None Housing: House Alcohol intake: current Alcohol intake frequency: holidays/special occasions only Patient Tobacco Use Status: Never used Tobacco e-Cigarette/Vaping Use: Never Used Second Hand Smoke Exposure: No Advance Directives: No Advance Directives Information Provided: No service: No Current occupational status: employed Current occupational exposures/hazards: No Sexual orientation: Straight/Heterosexual Gender identity: Female Cognitive needs: No Hearing needs: No Vision needs: Yes Physical Exam ED Vital Signs: Vital Signs - 24 hr 02/13/24 13:50 02/13/24 15:53 Temperature 98 F 98.1 F Pulse Rate 78 78 Respiratory Rate 18 18 Blood Pressure 159/84 H 137/80 Pulse Oximetry 98 98 Oxygen Delivery Method Room Air Room Air BMI result Body Mass Index 34.0 Const General: cooperative, healthy appearing, comfortable and no acute distress Orientation/consciousness: patient oriented x3 Limitations: no limitations HENMT Head: Yes normal to inspection Ears: hearing grossly normal bilaterally General nose exam: Normal external nose present Face and sinus: Yes normal facial exam Mouth: Normal oral and palatal mucosa present Throat: Yes posterior oropharynx normal Eyes General: appearance normal, both eyes and all related structures Pupils: Equal, round and reactive pupils present Neck Neck: Yes normal visual inspection Chest Chest palpation & inspection: normal inspection of the chest Resp Effort & Inspection: normal respiratory effort Auscultation: clear to auscultation bilaterally Cardio Rate: regular rate Rhythm: regular rhythm Peripheral pulses: Peripheral pulses 2+ throughout GI Inspection: Yes normal to inspection Palpation (GI): Soft to palpation and nontender Auscultation: normal bowel sounds External Female Exam: normal external appearance Speculum Exam - Vagina: vaginal bleeding (moderate) Speculum Exam - Cervix: normal appearance of the cervix OB/external & speculum: vaginal bleeding (moderate) Back/Spine/Pelvis Thoracic/Lumbar Spine: thoracic and lumbar spine normal to inspection Skin General skin exam: no rashes or lesions noted Neuro General: patient oriented x3, no focal motor deficits and normal sensation to monofilament Cranial nerves: Yes Equal, round and reactive pupils present Cognition (Neuro): normal cognition Speech: No Abnormal speech present Gait exam (Neuro): Normal gait present Motor exam (neuro): 5/5 motor strength present throughout Extrem General: Yes normal to inspection Course Course Course Narrative: This is a rapid medical exam performed by Iain French NP: Additional HPI, ROS, PE not included below will be deferred to primary provider. Patient is a 53-year-old female presenting to the ED with complaint of heavy vaginal bleeding since yesterday am. Called Dr. Galo who advised patient to come in. Changing super sized pads every hour. Mild abdominal cramping. Hx same in the past, had Mirena, but that was recently removed one month ago. Plan: labs Reevaluation(s) Reevaluation #1: stable hemoglobin and hematocrit. Additional labs are unremarkable. Urine is negative for infection. Serology was sent. patient has changed her pad once since being here in the emergency room. Her vitals are stable. Will touch base with OBGYN prior to discharge Medical Decision Making Medical Decision Making MDM Narrative: 53 yo female with history of asthma, anxiety, depression presents to the ER with complaints of heavy vaginal bleeding since yesterday at 01:00. Patient reports that she has a history of a myoma and abnormal uterine bleeding followed by Dr Galo. she did have a hysteroscopy and endometrial biopsy on December 31 which was negative for malignancy. At that time she did have a Mirena that was removed as it was determined she no longer needed contraception as she is perimenopausal. She reports that since yesterday she has been using 1 pad or tampon hourly due to heavy bleeding. She denies any clots. She does have some lower abdominal cramping and lower back pain associated with this. She spoke to Dr. Galo who recommended she come into the ER to be evaluated due to the heavy bleeding. She denies any dizziness, weakness. No focal abdominal pain, VSS, nontoxic appearing. Will check labs, UA, ur preg, perform pelvic exam and speak to OB Will send CT/NG, BV panel although patient has little concern for STI she did accept testing Differential Diagnosis Differential Diagnoses: The differential diagnosis associated with the presentation includes dysfunctional uterine bleeding Admission/Observation Consideration of admission/observation: Escalation of care including admission/observation considered bleeding seems controlled here with stable hemoglobin. Can follow up outpatient with OBGYN Consult Healthcare Provider Management of the patient was discussed with: Document Specialist spoke to Iraj be on-call for Gynecology. Recommended initiating Provera 10 mg daily for 30 days, follow-up in the office next week and returning to the ER for any worsening symptoms Lab Data MDM Lab Attestation statement: I reviewed the patient's lab results. 02/13/24 14:54 02/13/24 14:54 Labs: Lab Results 02/13/24 02/13/24 02/13/24 Range/Units 14:54 14:55 15:18 WBC 8.7 (4.8-10.8) X10*3/uL RBC 4.32 (4.20-5.50) X10*6/uL Hgb 14.8 (12.0-16.0) g/dl Hct 41.4 (37.0-47.0) % MCV 95.8 (80.0-98.0) fL MCH 34.3 H (27.0-33.0) pg MCHC 35.7 H (31.0-35.0) g/dl RDW 11.7 (11.0-16.0) % Plt Count 208 D (160-400) X10*3/uL MPV 11.4 (9.4-12.3) fL Immature Gran % (Auto) 0.3 (0.0-0.4) % Neut % (Auto) 58.8 (45-73) % Lymph % (Auto) 28.8 (20-40) % [place] % (Auto) 8.6 (2-11) % Eos % (Auto) 2.9 (0-4) % Baso % (Auto) 0.6 (0-2) % Lymph # (Auto) 2.5 (1.2-4.9) X10*3/uL [place] # (Auto) 0.7 (0.1-1.2) X10*3/uL Eos # (Auto) 0.3 (0.0-0.4) X10*3/uL Baso # (Auto) 0.1 (0.0-0.2) X10*3/uL Abs Immat Gran (auto) 0.03 (0.00-0.03) X10*3/uL Absolute Neuts (auto) 5.1 (2.0-8.3) x10*3/uL Absolute Nucleated RBC 0.000 (0.0-0.012) X10*3/uL Nucleated RBC % (auto) 0.0 (0.0-0.2) /100WBC Smear Tech's Comments VERIFIED PT 11.6 (11.1-13.3) SEC INR 1.0 (0.9-1.1) Sodium 139 (135-145) mmol/L Potassium 4.5 (3.3-5.1) mmol/L Chloride 106 (96-108) mmol/L Carbon Dioxide 26 (22-29) mmol/L Anion Gap 12 (12-20) BUN 12 (9-16) mg/dL Creatinine 0.70 (0.5-1.4) mg/dL Estim Creat Clear Calc 92.1 Estimated GFR > 60 Random Glucose 82 (60-115) mg/dL Calcium 9.4 D (8.4-10.2) mg/dL Total Bilirubin 0.3 (0.0-1.0) mg/dL AST 21 (5-31) U/L ALT 20 (0-31) U/L Alkaline Phosphatase 68 (39-117) U/L Total Protein 7.0 (6.5-8.0) g/dL Albumin 3.9 (3.5-5.0) g/dL Beta HCG, Quant < 2 mIU/mL Urine Color Red A Urine Appearance Hazy Urine pH 5.0 (5.0-9.0) Ur Specific [place] > 1.030 H (1.005-1.025) Urine Protein 100 (2+) H (Neg-Trace) mg/dL Urine Glucose (UA) Negative (Negative) mg/dL Urine Ketones Negative (Negative) mg/dL Urine Blood Large (3+) H (Negative) Urine Nitrite Negative (Negative) Ur Leukocyte Esterase Moderate (2+) H (Negative) Urine RBC >20 H (0-2) /HPF Urine WBC 11-20 H (0-5) /HPF Ur Squamous Epith Cells 3-5 (0-2) /HPF Urine Bacteria None Seen (None Seen) Hyaline Casts 0-2 (0-2) /LPF Urine Test NEGATIVE (NEGATIVE) T. vaginalis (PCR) NOT DETECTED (Not Detect) Bact Vaginosis (PCR) NEGATIVE (Negative) C. krusei/glabrata (PCR) NOT DETECTED (Not Detect) Josie group (PCR) NOT DETECTED (Not Detect) Blood Type O Positive Antibody Screen NEGATIVE Independent Historian Clinical information obtained from an independent historian. History obtained from or confirmed by: Spouse Discharge Plan Discharge Clinical Impression: Menometrorrhagia Patient Disposition: Home, Self-Care Instructions: Menorrhagia (ED) Additional Instructions: take the Provera daily for 30 days. Follow-up next week in the office with Dr. Galo. Return to the ER for any worsening bleeding Prescriptions: New medroxyprogesterone [Provera] 10 mg tablet 10 mg PO DAILY Qty: 30 0RF No Action hydroxyzine HCl 25 mg tablet 25 mg PO TID PRN (Reason: anxiety) 30 Days Qty: 90 1RF omeprazole 20 mg capsule,delayed release(DR/EC) 20 mg PO DAILY Qty: 30 3RF simethicone 125 mg capsule 125 mg PO BID-QID PRN (Reason: abdominal distention) Qty: 120 3RF fenofibrate 54 mg tablet 54 mg PO DAILY 90 Days Qty: 90 1RF cholecalciferol (vitamin D3) 50 mcg (2,000 unit) capsule 50 mcg PO DAILY Qty: 30 1RF bupropion HCl 150 mg tablet extended release 24 hr 150 mg PO QAM 30 Days Qty: 30 1RF Mirena 20 mcg/24 hours (6 yrs) 52 mg intrauterine device intrauterine Creon 12,000-38,000 -60,000 unit capsule,delayed release(DR/EC) 1 cap PO QID Qty: 120 5RF Rx Instructions: administer with meals and/or snacks polyethylene glycol 3350 [Miralax] 17 gram/dose powder 17 g PO DAILY Qty: 510 2RF sennosides [Natural Senna Laxative] 8.6 mg tablet 8.6 mg PO BEDTIME Qty: 90 3RF albuterol sulfate [Ventolin HFA] 90 mcg/actuation HFA aerosol inhaler 1 puff inhalation Q4H PRN (Reason: Shortness Of Breath Or Wheezing) fluticasone furoate-vilanterol [Breo Ellipta] 200-25 mcg/dose blister with device 1 inh inhalation DAILY 30 Days Qty: 1 6RF codeine-guaifenesin 10-100 mg/5 mL liquid 10 ml PO Q4-6H PRN (Reason: cough) 14 Days Qty: 473 0RF Referrals: John Galo MD [Physician] - 1 week Print Language: Estonian
[2024-02-13 15:11] LABS: UPreg QC Valid YES; Urine Pregnancy NEGATIVE (NEGATIVE)
[2024-02-13 15:11] LABS: Basophils Absolute Auto 0.1 X10*3/uL (0.0-0.2); Basophils Percent Auto 0.6 % (0-2); Eosinophils Absolute Auto 0.3 X10*3/uL (0.0-0.4); Eosinophils Percent Auto 2.9 % (0-4); Hematocrit 41.4 % (37.0-47.0); Hemoglobin 14.8 g/dl (12.0-16.0); Imm Gran Abs Auto 0.03 X10*3/uL (0.00-0.03); Imm Gran Pct Auto 0.3 % (0.0-0.4); Lymphocytes Absolute Auto 2.5 X10*3/uL (1.2-4.9); Lymphocytes Percent Auto 28.8 % (20-40); MANUAL DIFF FLAG SCAN; Mean Corpuscular HGB Conc 35.7 g/dl (31.0-35.0); Mean Corpuscular Hemoglobin 34.3 pg (27.0-33.0); Mean Corpuscular Volume 95.8 fL (80.0-98.0); Mean Platelet Volume 11.4 fL (9.4-12.3); Monocytes Absolute Auto 0.7 X10*3/uL (0.1-1.2); Monocytes Percent Auto 8.6 % (2-11); Neutrophils Absolute Auto 5.1 x10*3/uL (2.0-8.3); Neutrophils Percent Auto 58.8 % (45-73); PLT CLUMP 1; Red Blood Count 4.32 X10*6/uL (4.20-5.50); Red Cell Distribution Width 11.7 % (11.0-16.0); SCAN SMEAR FLAG 1
[2024-02-13 15:14] LABS: Appearance Urine Hazy; Color Urine Red; Glucose Urine UA Negative (Negative); Urine Blood Large (3+) (Negative)
[2024-02-13 15:14] LABS: Prothrombin Time 11.6 SEC (11.1-13.3)
[2024-02-13 15:15] LABS: Leukocyte Esterase Urine Moderate (2+) (Negative); Nitrite Urine Negative (Negative); Specific Gravity - Urine > 1.030 (1.005-1.025); UMIC TRIGGER UACC YES; Urine Ketones Negative (Negative); Urine Protein 100 (2+) mg/dL (Neg-Trace)
[2024-02-13 15:16] LABS: Bacteria Urine None Seen (None Seen); Hyaline Casts Urine 0-2 /LPF (0-2); RBC Urine >20 /HPF (0-2); UACC Culture Trigger YES
[2024-02-13 15:30] LABS: Alanine Aminotransferase 20 U/L (0-31); Albumin Level 3.9 g/dL (3.5-5.0); Alkaline Phosphatase 68 U/L (39-117); Anion Gap 12 (12-20); Aspartate Amino Transferase 21 U/L (5-31); Bilirubin Total 0.3 mg/dL (0.0-1.0); Blood Urea Nitrogen 12 mg/dL (9-16); Calcium 9.4 mg/dL (8.4-10.2); Carbon Dioxide 26 mmol/L (22-29); Chloride 106 mmol/L (96-108); Creatinine Clr Calc Pharmacy 92.1; Estimated Glomerular Filt Rate > 60; Glucose Random 82 mg/dL (60-115); Potassium 4.5 mmol/L (3.3-5.1); Sodium 139 mmol/L (135-145)
[2024-02-13 15:32] LABS: HCG Quantitative < 2 mIU/mL
[2024-02-13 15:53] VITALS: BP 137/80; PULSE 78; RESP 18; TEMP 36.7; O2SAT 98
[2024-02-13 15:57] LABS: White Blood Count 8.7 X10*3/uL (4.8-10.8)
[2024-02-13 15:58] LABS: Platelet Count 208 X10*3/uL (160-400); SLIDE REVIEW VERIFIED
[2024-02-13 16:24] LABS: Bacterial Vaginosis PCR NEGATIVE (Negative); Candida Group PCR NOT DETECTED (Not Detect); Candida glab krusei PCR NOT DETECTED (Not Detect); Trichomonas vaginalis PCR NOT DETECTED (Not Detect)
--- NOTE | 2024-02-13 16:48 | P.CONOB_ITS ---
EMERGENCY DEPARTMENT COORDINATOR - CN: HPI Data of Consult Consult date: 02/13/24 Primary Care Provider: Dayana Huffman MD Consult Narrative Narrative: I was consulted on Amarilis Gerber who is a 53 year old presenting to the ER complaining of heavy vaginal bleeding since yesterday at 01:00. The patient has a history of multiple uterine myoma and abnormal uterine bleeding followed had a hysteroscopy, Mirena IUD removal and D and C on December 31 which was negative for malignancy. No other complaints. Last mammogram was in 08/15 was negative cc:: CC: OB PMFSH Past Medical History Medical History Fibromyalgia Immunization due Physical exam Hypovitaminosis D GERD (gastroesophageal reflux disease) Mixed hyperlipidemia Leukopenia Abdominal pain Anxiety and depression Constipation Skin lesion Family History Family History Father Stroke Mother Diabetes Hypertension Depression Maternal Aunt Diabetes Daughter Diabetes Surgical History Surgical History Hx of colonoscopy History of dilatation and curettage Social History Social History Household Members: None Housing: House Alcohol intake: current Alcohol intake frequency: holidays/special occasions only Patient Tobacco Use Status: Never used Tobacco e-Cigarette/Vaping Use: Never Used Second Hand Smoke Exposure: No Advance Directives: No Advance Directives Information Provided: No service: No Current occupational status: employed Current occupational exposures/hazards: No Sexual orientation: Straight/Heterosexual Gender identity: Female Cognitive needs: No Hearing needs: No Vision needs: Yes Meds Allergies Allergy/AdvReac Type Severity Reaction Status Date / Time diphtheria,pertussis Allergy Intermediate Swelling Verified 02/13/24 13:52 (acellular),te [From Adacel(Tdap Adolesn/Adult)(PF)] metronidazole [Flagyl] Allergy Intermediate itching Verified 02/13/24 13:52 Home Medications ?Medication ?Instructions ?Recorded ?Confirmed ?Last Taken ?Type levonorgestrel 21 mcg/24 hours (8 intrauterine 08/20/20 10/26/23 Unknown History yrs) 52 mg intrauterine device (Mirena) albuterol sulfate 90 mcg/actuation 1 puff inhalation Q4H PRN 12/01/23 12/30/23 Unknown History aerosol inhaler (Ventolin HFA) Shortness Of Breath Or Wheezing EMERGENCY DEPARTMENT COORDINATOR Physical Exam Vitals Vital signs: Temp Pulse Resp BP Pulse Ox O2 Del Method 98.1 F 78 18 137/80 98 Room Air 02/13/24 15:53 02/13/24 15:53 02/13/24 15:53 02/13/24 15:53 02/13/24 15:53 02/13/24 15:53 BMI result Body Mass Index 34.0 Additional Comments: Reported by Bridgett Cronin NP in the ER as the following: Idlo-yc-stxqbwaw vaginal bleeding no cervical motion tenderness uterine or adnexal tenderness Abdomen soft nontender EMERGENCY DEPARTMENT COORDINATOR - Results Labs 02/13/24 14:54 02/13/24 14:54 Labs: Short CBC 02/13/24 Range/Units 14:54 WBC 8.7 (4.8-10.8) X10*3/uL Hgb 14.8 (12.0-16.0) g/dl Hct 41.4 (37.0-47.0) % Plt Count 208 D (160-400) X10*3/uL BMP 02/13/24 14:54 Sodium 139 Potassium 4.5 Chloride 106 Carbon Dioxide 26 BUN 12 Creatinine 0.70 Calcium 9.4 D Liver Function 02/13/24 Range/Units 14:54 Total Bilirubin 0.3 (0.0-1.0) mg/dL AST 21 (5-31) U/L ALT 20 (0-31) U/L Alkaline Phosphatase 68 (39-117) U/L Albumin 3.9 (3.5-5.0) g/dL Urine 02/13/24 Range/Units 14:55 Urine Color Red A Urine Appearance Hazy Urine pH 5.0 (5.0-9.0) Ur Specific [place] > 1.030 H (1.005-1.025) Urine Protein 100 (2+) H (Neg-Trace) mg/dL Urine Glucose (UA) Negative (Negative) mg/dL Urine Test NEGATIVE (NEGATIVE) Antibody Screen Antibody Screen NEGATIVE 02/13/24 14:54 Assessment and Plan (1) Abnormal uterine bleeding (AUB): Status: Acute Recommended to Bridgett Cronin NP the following: Provera 10 mg p.o. q.d., follow-up in the office early next week, instructions to be given to patient to come back to emergency room in case of persistence or heavier vaginal bleeding. I spent a total of 20 minutes reviewing the chart, communicating to the emergency room provider and documenting in the medical record
[2024-02-13 16:55] VITALS: BP 138/76; PULSE 77; RESP 19; TEMP 36.6; O2SAT 98
[2024-02-13 16:55] LABS: CT PCR NOT DETECTED (Not Detect.); NG PCR NOT DETECTED (Not Detect.)
[2024-02-13 17:07] VITALS: BP 138/76; PULSE 77; RESP 19; TEMP 36.6; O2SAT 98
== END 2024-02-13 17:08 | disposition home or self-care (01) ==
PROVIDERS: Nurse Practitioner Family; Registered Nurse Emergency; Emergency Provider Emergency Medicine; PCP Internal Medicine
DX: N92.1 Excessive and frequent menstruation with irregular cycle (principal); R10.2 Pelvic and perineal pain; E78.2 Mixed hyperlipidemia; K21.9 Gastro-esophageal reflux disease without esophagitis; Z79.899 Other long term (current) drug therapy
CPT/HCPCS: 0352U; 0353U; 36415; 80053; 81001; 81025; 84702; 85025; 85610; 86850; 86900; 86901; 87086; 99283

== ENCOUNTER → 2024-02-13 13:57 | Outpatient (BNV) | payer OTHER, SELFPAY | PROVIDERS: Emergency Provider Emergency Medicine; PCP Internal Medicine; Visit Provider Obstetrics & Gynecology | DX: N93.9 Abnormal uterine and vaginal bleeding, unspecified (principal) | CPT/HCPCS: 99283 ==

== ENCOUNTER 2024-03-01 15:23 | Outpatient (AMB) | payer OTHER, SELFPAY ==
[2024-03-01 15:49] VITALS: BP 122/74; BMI 33.7
--- NOTE | 2024-03-01 15:49 | A.OFFVIS_ITS ---
Vital Signs 03/01/24 15:49 Height 5 ft 1 in Weight 178 lb 9.191 oz BMI 33.7 BP 122/74 Intake Visit Reasons: ER follow 4 H Youth Development Specialist Required: No Information Interpreted: non-clinical & clinical Accompanied by: Self / Same As Patient Allergies diphtheria,pertussis (acellular),te [From Adacel(Tdap Adolesn/Adult)(PF)] Allergy (Intermediate, Verified 03/01/24 15:49) Swelling metronidazole [Flagyl] Allergy (Intermediate, Verified 03/01/24 15:49) itching HPI Comments Details: Presenting for follow-up after emergency room visit on 02/12 where the following workup was done: H&H 14.8/41.4 The patient was started on Provera 10 mg p.o. q.d. Since then her bleeding has resolved The patient was complaining of abnormal uterine bleeding few months ago, the following workup was done then: H&H within normal, TSH, hCG within normal FSH was in the menopausal range Mammogram in 08/15 was BI-RADS 1 Co testing in 02/10 was negative Ultrasound done in 09/16 showed the following: IMPRESSION: * Large lobulated leiomyomatous uterus. * Intrauterine contraceptive device is well-positioned. * Benign cysts/follicles are seen within each ovary. * No pelvic free fluid Hysteroscopy D&C Mirena IUD removal was done in 01/14, the pathology showed the following: A. Endometrium, curettage: Fragments of inactive endometrium with pseudo- decidual stromal change and necrosis with acute inflammation consistent with progestin effect; negative for atypia, hyperplasia or malignancy. B. IUD, removal: White, plastic, T-shaped contraceptive device consistent with IUD (gross diagnosis only) [facility] Medical History Fibromyalgia Immunization due Physical exam Hypovitaminosis D GERD (gastroesophageal reflux disease) Mixed hyperlipidemia Leukopenia Abdominal pain Anxiety and depression Constipation Skin lesion Surgical History Hx of colonoscopy History of dilatation and curettage Family History Father Stroke Mother Diabetes Hypertension Depression Maternal Aunt Diabetes Daughter Diabetes Social History Household Members: None Housing: House Alcohol intake: current Alcohol intake frequency: holidays/special occasions only Patient Tobacco Use Status: Never used Tobacco e-Cigarette/Vaping Use: Never Used Second Hand Smoke Exposure: No service: No Current occupational status: employed Current occupational exposures/hazards: No Sexual orientation: Straight/Heterosexual Gender identity: Female Cognitive needs: No Hearing needs: No Vision needs: Yes Review of Systems Const All systems reviewed & are unremarkable except as noted in HPI and below Reports as per HPI and Reports no additional complaints GI Reports no additional complaints Reports no additional complaints Physical Exam Vital Signs: Last Vital Signs BP 122/74 03/01/24 15:49 BMI result Body Mass Index 33.7 Assessment & Plan Assessment & Plan (1) Abnormal uterine bleeding (AUB): Comment: FSH elevated Code(s): N93.9 - Abnormal uterine and vaginal bleeding, unspecified Category: Medical Plan: Recommended to the patient to stay on Provera 10 mg p.o. q.d. till ultrasound results is back then will discuss different options of treatment including progesterone treatment, Mirena IUD, endometrial ablation or hysterectomy. Instructions given the patient to call or go to emergency room in case of heavy bleeding. All questions answered, the patient verbalized understanding (2) Uterine myoma: Code(s): D25.9 - Leiomyoma of uterus, unspecified Category: Medical Plan: Repeat pelvic ultrasound ordered to compare the size of the myoma. Instructions given the patient to schedule a pelvic ultrasound follow-up appointment within 2 weeks. Orders: Orders US pelvic and transvaginal Today D25.9 - Leiomyoma of uterus, unspecified, N93.9 - Abnormal uterine and vaginal bleeding, unspecified Medications: Refilled medroxyprogesterone (Provera) 10 mg PO DAILY 30 tabs 0RF Coding Level of Care Code Est Pt Level 3 (41759) Diagnoses Abnormal uterine bleeding (AUB) N93.9 Uterine myoma D25.9
== END 2024-03-01 16:26 | disposition home or self-care (01) ==
PROVIDERS: PCP Internal Medicine; Visit Provider Obstetrics & Gynecology
DX: N93.9 Abnormal uterine and vaginal bleeding, unspecified (principal); D25.9 Leiomyoma of uterus, unspecified
CPT/HCPCS: 99213

== ENCOUNTER → 2024-03-01 15:23 | Outpatient (BNVA) | payer OTHER, SELFPAY | PROVIDERS: PCP Internal Medicine; Visit Provider Obstetrics & Gynecology | DX: N39.3 Stress incontinence (female) (male) (principal); D25.9 Leiomyoma of uterus, unspecified | CPT/HCPCS: 99212 ==

== ENCOUNTER 2024-03-08 15:52 | Outpatient (REF) | payer OTHER, SELFPAY ==
--- NOTE | ~2024-03-08 | US_ITS ---
EXAMINATION: US PELVIS COMPLETE CLINICAL INFORMATION: Leiomyoma of uterus; the last menstrual period is not specified. COMPARISON: Pelvic ultrasound dated 09/04/2023. TECHNIQUE: Transabdominal imaging was performed. FINDINGS: The uterus is of normal size and echogenicity, measuring 16.7 x 10.9 x 11.4 cm. The uterus is anteverted and anteflexed. The endometrial stripe is poorly visualized due to fibroid disease. FIBROIDS: There are 4 fibroids seen. 1. Location: Upper leftward body, myometrial. Size: 4.1 x 3.7 x 4.6 cm. Fibroid characteristics: Heterogeneously hypoechoic. 2. Location: Leftward fundus, exophytic subserosal. Size: 2.7 x 2.0 x 2.4 cm. Fibroid characteristics: Heterogeneously hypoechoic. 3. Location: Posterior body, myometrial. Size: 5.2 x 5.3 x 3.5 cm. Fibroid characteristics: Hypoechoic. Both ovaries are of normal size and echogenicity. The right ovary measures 2.0 x 1.5 x 1.9 cm for a volume of 3.0 mL. The left ovary measures 1.6 x 1.2 x 1.2 cm for a volume of 1.2 mL. There is no pelvic free fluid. No adnexal mass is seen. US/US pelvic and transvaginal IMPRESSION: Uterine fibroids are again seen, as detailed. There is secondary nonvisualization of the enhanced study.
== END 2024-03-08 15:53 | disposition home or self-care (01) ==
LOC: HO.US 15:52
PROVIDERS: PCP Internal Medicine; Visit Provider Obstetrics & Gynecology
DX: D25.9 Leiomyoma of uterus, unspecified (principal); N93.9 Abnormal uterine and vaginal bleeding, unspecified
CPT/HCPCS: 76830; 76856

== ENCOUNTER 2024-04-05 06:44 | Outpatient (REF) | payer OTHER, SELFPAY ==
[2024-04-05 07:59] LABS: Alanine Aminotransferase 23 U/L (0-31); Albumin Level 3.8 g/dL (3.5-5.0); Alkaline Phosphatase 59 U/L (39-117); Anion Gap 10 (12-20); Aspartate Amino Transferase 19 U/L (5-31); Bilirubin Total 0.3 mg/dL (0.0-1.0); Blood Urea Nitrogen 11 mg/dL (9-16); Calcium 8.7 mg/dL (8.4-10.2); Carbon Dioxide 25 mmol/L (22-29); Chloride 107 mmol/L (96-108); Cholesterol 246 mg/dL (<200); Estimated Glomerular Filt Rate > 60; Glucose Fasting 110 mg/dL (60-99); HDL Cholesterol 37 mg/dL (>40); LDL Cholesterol Calculated 154 mg/dL (<100); Potassium 3.9 mmol/L (3.3-5.1); Sodium 138 mmol/L (135-145); Total Protein 6.7 g/dL (6.5-8.0); Triglycerides 278 mg/dL (<150)
[2024-04-05 08:06] LABS: Vitamin D 25-OH Total 37.4 ng/mL (>30)
== END 2024-04-05 06:45 | disposition home or self-care (01) ==
LOC: HO.LAB 06:44
PROVIDERS: PCP Internal Medicine; Visit Provider Internal Medicine
DX: Z00.00 Encounter for general adult medical examination without abnormal findings (principal); E55.9 Vitamin D deficiency, unspecified; E78.5 Hyperlipidemia, unspecified
CPT/HCPCS: 36415; 80053; 80061; 82306

== ENCOUNTER 2024-04-07 16:33 | Outpatient (AMB) | payer OTHER, SELFPAY ==
[2024-04-07 16:36] VITALS: BP 160/90; BMI 35.1
--- NOTE | 2024-04-07 16:36 | A.OFFPC_ITS ---
Vital Signs 04/07/24 16:36 Height 5 ft 1 in Weight 186 lb BMI 35.1 BP 160/90 H Blood Pressure Location Lt brachial Position Sitting Intake Visit Reasons: weight check/Wegovy request Bilingual Receptionist Required: No Accompanied by: Self / Same As Patient Allergies diphtheria,pertussis (acellular),te [From Adacel(Tdap Adolesn/Adult)(PF)] Allergy (Intermediate, Verified 04/07/24 16:50) Swelling metronidazole [Flagyl] Allergy (Intermediate, Verified 04/07/24 16:50) itching Medication List - Last Reconciled 04/07/24 by Dayana Huffman MD albuterol sulfate 90 mcg/actuation (Ventolin HFA) 1 puff inhalation Q4H PRN Breo Ellipta 200-25 mcg/dose (fluticasone furoate-vilanterol) 1 inh inhalation DAILY 30 days NS bupropion HCl XL 150 mg PO QAM 30 days cholecalciferol (vitamin D3) 50 mcg PO DAILY fenofibrate 54 mg PO DAILY 90 days hydroxyzine HCl 25 mg PO TID PRN 30 days [id number] 12,000-38,000 -60,000 unit (Creon) 1 cap PO QID medroxyprogesterone (Provera) 10 mg PO DAILY 90 days omeprazole 20 mg PO DAILY polyethylene glycol 3350 (Miralax) 17 grams PO DAILY semaglutide (weight loss) (Wegovy) 0.25 mg (0.5 mL) subcut QWEEK 4 weeks sennosides (Natural Senna Laxative) 8.6 mg PO BEDTIME simethicone 125 mg PO BID-QID PRN Tobacco use date assessed: 10/26/23 Dental Screening Dental Screen Date: 10/26/23 HPI HPI Comments History of Present Illness Details This is a 54-year-old female with mild major depression, mixed hyperlipidemia, GERD and constipation that comes today for follow-up on recent labs. Depression stable with bupropion. Cholesterol and triglycerides are still elevated and I will add atorvastatin. Due to her hyperlipidemia she does have cardiovascular risk factors and will benefit from Wegovy to treat her obesity. She has a BMI of 35.1 and has tried diet and exercise with no significant improvement. She has been feeling short of breath due to her weight that is most likely causing restriction on the lungs. GERD stable with PPIs. Has constipation with less than 3 bowel movements per week and will benefit from senna. She also has impaired glucose tolerance. Will benefit from losing weight. [facility] Medical History (Updated 04/07/24 @ 17:41 by Dayana Huffman MD) Obesity, Class I, BMI 30-34.9 Fibromyalgia Immunization due Physical exam Hypovitaminosis D GERD (gastroesophageal reflux disease) Mixed hyperlipidemia Leukopenia Abdominal pain Anxiety and depression Constipation Skin lesion Surgical History Hx of colonoscopy History of dilatation and curettage Family History Father Stroke Mother Diabetes Hypertension Depression Maternal Aunt Diabetes Daughter Diabetes Social History Household Members: None Housing: House Alcohol intake: current Alcohol intake frequency: holidays/special occasions only Patient Tobacco Use Status: Never used Tobacco e-Cigarette/Vaping Use: Never Used Second Hand Smoke Exposure: No service: No Current occupational status: employed Current occupational exposures/hazards: No Sexual orientation: Straight/Heterosexual Gender identity: Female Cognitive needs: No Hearing needs: No Vision needs: Yes Questionnaire Thrive Questionnaire Date Thrive assessed: 10/21/22 FATIMAH-7 AMB Questionnaire FATIMAH-7 Date FATIMAH - 7 assessed: 10/26/23 Source: Developed by Drs. Best Delarosa, Shannan Steve, Sergio Haile and colleagues, with an educational kristal from [email or web address]. Review of Systems Const All systems reviewed & are unremarkable except as noted in HPI and below Card Denies chest pain at rest, Denies chest pain with activity, Denies edema, Denies irregular heart rhythm, Denies claudication, Denies dyspnea, Denies dyspnea on exertion, Denies orthopnea, Denies paroxysmal nocturnal dyspnea and Denies slow heart rate Resp Denies cough, Denies dyspnea and Denies dyspnea on exertion GI Denies abdominal pain, Denies change in bowel habits, Denies excessive flatus, Denies nausea and Denies vomiting Denies urinary incontinence, Denies urinary hesitancy and Denies urinary urgency Physical exam (Primary Care) Vital Signs: Last Vital Signs BP 160/90 H 04/07/24 16:36 BMI result Body Mass Index 35.1 BMI Assessment/Plan discussion: High BMI High, discussed plan: lifestyle, weight reduction, dietary, physical activity and alcohol moderation Tobacco/Smoking Status: Tobacco use Status Tobacco use date assessed 10/26/23 04/07/24 16:42 Patient Tobacco Use Status Never used Tobacco 04/07/24 16:42 e-Cigarette/Vaping Use Never Used 04/07/24 16:42 Thrive Assessment: Date of Thrive Assessment Date Thrive assessed 10/21/22 04/07/24 16:42 Resp Effort & Inspection: normal respiratory effort Auscultation: clear to auscultation bilaterally Cardio Jugular venous distension: no JVD Rate: regular rate Rhythm: regular rhythm Heart sounds: S1 normal heart sound present and S2 normal heart sound present Extrem General: Yes full ROM Assessment and Plan Assessment & Plan (1) Mild major depression: Code(s): F32.0 - Major depressive disorder, single episode, mild Plan: Continue bupropion. (2) Mixed hyperlipidemia: Code(s): E78.2 - Mixed hyperlipidemia Plan: Continue statins and fibrates. (3) Constipation: Code(s): K59.00 - Constipation, unspecified Qualifiers: Constipation type: slow transit constipation Qualified Code(s): K59.01 - Slow transit constipation Plan: Continue senna as needed. (4) GERD (gastroesophageal reflux disease): Code(s): K21.9 - Gastro-esophageal reflux disease without esophagitis Qualifiers: Esophagitis presence: esophagitis presence not specified Qualified Code(s): K21.9 - Gastro-esophageal reflux disease without esophagitis Plan: Continue PPIs as needed. (5) Obesity (BMI 35.0-39.9 without comorbidity): Code(s): E66.9 - Obesity, unspecified Plan: Start Wegovy. BMI goal is less than 30. Medications: New atorvastatin 20 mg PO BEDTIME 90 days 90 tabs 1RF Refilled fenofibrate 54 mg PO DAILY 90 days 90 tabs 1RF semaglutide (weight loss) (Wegovy) administer weeks 1 through 4 of therapy 0.25 mg (0.5 mL) subcut QWEEK 4 weeks 2 mL 0RF E66.9 - Obesity, unspecified sennosides (Natural Senna Laxative) 8.6 mg PO BEDTIME 90 tabs 3RF constipation K59.00 - Constipation, unspecified Coding Level of Care Code Est Pt Level 4 (67645) Complex EM visit Add On G2211 Diagnoses Mild major depression F32.0 Mixed hyperlipidemia E78.2 Slow transit constipation K59.01 Constipation type: slow transit constipation Gastroesophageal reflux disease, unspecified whether esophagitis present K21.9 Esophagitis presence: esophagitis presence not specified Obesity (BMI 35.0-39.9 without comorbidity) E66.9 Time Spent (min) 24
== END 2024-04-07 17:00 | disposition home or self-care (01) ==
PROVIDERS: PCP Internal Medicine; Visit Provider Internal Medicine
DX: E78.2 Mixed hyperlipidemia (principal); F32.0 Major depressive disorder, single episode, mild; K59.01 Slow transit constipation; K21.9 Gastro-esophageal reflux disease without esophagitis; E66.9 Obesity, unspecified
CPT/HCPCS: 99214; G2211

== ENCOUNTER 2024-04-11 15:48 | Outpatient (AMB) | payer OTHER, SELFPAY ==
--- NOTE | 2024-04-11 15:57 | MHC.OFFVIS ---
Vital Signs 04/11/24 15:59 Height 5 ft 1 in Weight 185 lb 3.013 oz BMI 35.0 BP 124/74 Intake Visit Reasons: US follow up Allergies diphtheria,pertussis (acellular),te [From Adacel(Tdap Adolesn/Adult)(PF)] Allergy (Intermediate, Verified 04/07/24 16:50) Swelling metronidazole [Flagyl] Allergy (Intermediate, Verified 04/07/24 16:50) itching HPI Comments Details: Presenting for pelvic ultrasound follow-up regarding myomas Ultrasound done on 03/08/2024 showed the following: The uterus is of normal size and echogenicity, measuring 16.7 x 10.9 x 11.4 cm. The uterus is anteverted and anteflexed. The endometrial stripe is poorly visualized due to fibroid disease. FIBROIDS: There are 4 fibroids seen. 1. Location: Upper leftward body, myometrial. Size: 4.1 x 3.7 x 4.6 cm. Fibroid characteristics: Heterogeneously hypoechoic. 2. Location: Leftward fundus, exophytic subserosal. Size: 2.7 x 2.0 x 2.4 cm. Fibroid characteristics: Heterogeneously hypoechoic. 3. Location: Posterior body, myometrial. Size: 5.2 x 5.3 x 3.5 cm. Fibroid characteristics: Hypoechoic. Both ovaries are of normal size and echogenicity. The right ovary measures 2.0 x 1.5 x 1.9 cm for a volume of 3.0 mL. The left ovary measures 1.6 x 1.2 x 1.2 cm for a volume of 1.2 mL. There is no pelvic free fluid. No adnexal mass is seen. The patient has been on daily Provera 10 mg p.o. q.d. still complaining of vaginal bleeding on and off Last co testing in 02/10 was negative 01/14 hysteroscopy D&C pathology showed the following: Endometrium, curettage: Fragments of inactive endometrium with pseudo-decidual stromal change and necrosis with acute inflammation consistent with progestin effect; negative for atypia, hyperplasia or malignancy [facility] Medical History Obesity, Class I, BMI 30-34.9 Fibromyalgia Immunization due Physical exam Hypovitaminosis D GERD (gastroesophageal reflux disease) Mixed hyperlipidemia Leukopenia Abdominal pain Anxiety and depression Constipation Skin lesion Surgical History Hx of colonoscopy History of dilatation and curettage Family History Father Stroke Mother Diabetes Hypertension Depression Maternal Aunt Diabetes Daughter Diabetes Social History Household Members: None Housing: House Alcohol intake: current Alcohol intake frequency: holidays/special occasions only Patient Tobacco Use Status: Never used Tobacco e-Cigarette/Vaping Use: Never Used Second Hand Smoke Exposure: No service: No Current occupational status: employed Current occupational exposures/hazards: No Sexual orientation: Straight/Heterosexual Gender identity: Female Cognitive needs: No Hearing needs: No Vision needs: Yes Review of Systems Const All systems reviewed & are unremarkable except as noted in HPI and below Reports as per HPI and Reports no additional complaints GI Reports no additional complaints Reports no additional complaints Physical Exam Vital Signs: Last Vital Signs BP 124/74 04/11/24 15:59 BMI result Body Mass Index 35.0 Assessment & Plan Assessment & Plan (1) Uterine myoma: Comment: With continue abnormal uterine bleeding on Provera Code(s): D25.9 - Leiomyoma of uterus, unspecified Category: Medical Plan: Discussed with the patient the results the ultrasound, and options of treatment regarding myoma/AUB including medical versus surgical treatment all pros and cons, risks and benefits of each approach were discussed with the patient, the patient is interested in definitive surgical treatment. Discussed with the patient the different types of hysterectomies including, vaginal, laparoscopic assisted vaginal, robotic assisted laparoscopic,& abdominal with BSO. All pros, cons, r/b of each approach were discussed the patient including evidence that morbidity is less and recovery is shorter with minimally invasive approaches to hysterectomy. Discussed with the patient the lack of availability of the robot DaVinci robot and/or minimally invasive personal care assistant specialist at [facility]. The patient will be refer to [facility] minimally invasive plant equipment engineer surgery . All questions answered, the patient verbalized understanding Instructed the patient to call our office back in case a referral appointment is not scheduled, missed or canceled so that we will assist on rescheduling another appointment, the patient verbalized understanding agreed with the plan. Orders: Orders US pelvic and transvaginal 6 Months D25.9 - Leiomyoma of uterus, unspecified Coding Level of Care Code Est Pt Level 3 (41685) Diagnoses Uterine myoma D25.9
[2024-04-11 15:59] VITALS: BP 124/74; BMI 35.0
== END 2024-04-11 16:26 | disposition home or self-care (01) ==
LOC: HO.HWS 15:48
PROVIDERS: PCP Internal Medicine; Visit Provider Obstetrics & Gynecology
DX: D25.9 Leiomyoma of uterus, unspecified (principal)
CPT/HCPCS: 99213

== ENCOUNTER → 2024-04-11 15:48 | Outpatient (BNVA) | payer OTHER, SELFPAY | PROVIDERS: PCP Internal Medicine; Visit Provider Obstetrics & Gynecology | DX: D25.9 Leiomyoma of uterus, unspecified (principal) | CPT/HCPCS: 99212 ==

== ENCOUNTER 2024-04-21 07:27 | Outpatient (AMB) | payer OTHER, SELFPAY ==
--- NOTE | 2024-04-21 07:28 | A.OFFVIS_ITS ---
Vital Signs 04/21/24 07:29 BP 122/80 Intake Visit Reasons: vaginal bleeding Paper Pattern Folder Required: No Information Interpreted: non-clinical & clinical Temporary Office Assistant: Temporary Office Assistant Present (Felipa FORMAN) Accompanied by: Self / Same As Patient Allergies diphtheria,pertussis (acellular),te [From Adacel(Tdap Adolesn/Adult)(PF)] Allergy (Intermediate, Verified 04/21/24 07:32) Swelling metronidazole [Flagyl] Allergy (Intermediate, Verified 04/21/24 07:32) itching HPI Comments Details: Presenting after an episode of vaginal bleeding with passage of blood clots the occurred last week since then bleeding has resolved completely no other associated symptoms. The patient was counseled about options of treatment few weeks ago and decided to proceed with surgical management was referred to [facility] for minimally invasive surgery but her insurance was not accepted so referral to [facility] was placed, the appointment is not scheduled yet. The patient is on Provera daily 10 mg p.o. The following workup was done recently. Pelvic ultrasound showed the following The uterus is of normal size and echogenicity, measuring 16.7 x 10.9 x 11.4 cm. The uterus is anteverted and anteflexed. The endometrial stripe is poorly visualized due to fibroid disease. FIBROIDS: There are 4 fibroids seen. 1. Location: Upper leftward body, myometrial. Size: 4.1 x 3.7 x 4.6 cm. Fibroid characteristics: Heterogeneously hypoechoic. 2. Location: Leftward fundus, exophytic subserosal. Size: 2.7 x 2.0 x 2.4 cm. Fibroid characteristics: Heterogeneously hypoechoic. 3. Location: Posterior body, myometrial. Size: 5.2 x 5.3 x 3.5 cm. Fibroid characteristics: Hypoechoic. Both ovaries are of normal size and echogenicity. The right ovary measures 2.0 x 1.5 x 1.9 cm for a volume of 3.0 mL. The left ovary measures 1.6 x 1.2 x 1.2 cm for a volume of 1.2 mL. There is no pelvic free fluid. No adnexal mass is seen. Last co testing in 02/10 was negative 01/14 hysteroscopy D&C pathology showed the following: Endometrium, curettage: Fragments of inactive endometrium with pseudo-decidual stromal change and necrosis with acute inflammation consistent with progestin effect; negative for atypia, hyperplasia or malignancy PFSH Medical History Obesity, Class I, BMI 30-34.9 Fibromyalgia Immunization due Physical exam Hypovitaminosis D GERD (gastroesophageal reflux disease) Mixed hyperlipidemia Leukopenia Abdominal pain Anxiety and depression Constipation Skin lesion Surgical History Hx of colonoscopy History of dilatation and curettage Family History Father Stroke Mother Diabetes Hypertension Depression Maternal Aunt Diabetes Daughter Diabetes Social History Household Members: None Housing: House Alcohol intake: current Alcohol intake frequency: holidays/special occasions only Patient Tobacco Use Status: Never used Tobacco e-Cigarette/Vaping Use: Never Used Second Hand Smoke Exposure: No service: No Current occupational status: employed Current occupational exposures/hazards: No Sexual orientation: Straight/Heterosexual Gender identity: Female Cognitive needs: No Hearing needs: No Vision needs: Yes Review of Systems Const All systems reviewed & are unremarkable except as noted in HPI and below Reports as per HPI and Reports no additional complaints GI Reports no additional complaints Reports no additional complaints Physical Exam Vital Signs: Last Vital Signs BP 122/80 04/21/24 07:29 General: Yes no CVA tenderness External Female Exam: normal external appearance and normal appearance of the urethra Speculum Exam - Vagina: normal appearance of the vagina, normal palpation, no lesions and no masses Speculum Exam - Cervix: normal appearance of the cervix, normal palpation, no lesions, no masses and nontender Bimanual exam- vagina & uterus: normal bimanual exam, normal palpation, normal palpation, No Cervical tenderness present, non-tender, enlarged and other (No evidence of vaginal bleeding) Bimanual Exam- Adnexa, other: normal adnexae Back/Spine/Pelvis Back: no CVA tenderness Results AMB Test Urine AMB Test Urine Negative Last Edit by Felipa Temple CMA on 07:44 Assessment & Plan Assessment & Plan (1) Uterine myoma: Comment: With continue abnormal uterine bleeding on Provera Code(s): D25.9 - Leiomyoma of uterus, unspecified Category: Medical Plan: UPT done in the office was negative. CBC ordered stat. Will follow-up on referral to [facility] and the [facility] minimally invasive housing counselor surgery division. Instructed the patient to call our office or go to emergency room in case of heavy vaginal bleeding and to call back in case a referral appointment is not scheduled, missed or canceled so that we will assist on rescheduling another appointment, the patient verbalized understanding agreed with the plan. Orders: Orders AMB HCG Urine Test Today Z32.02 - Encounter for test, result negative Complete Blood Count no Diff Today D25.9 - Leiomyoma of uterus, unspecified Coding Level of Care Code Est Pt Level 3 (21923) Diagnoses Uterine myoma D25.9
[2024-04-21 07:29] VITALS: BP 122/80
== END 2024-04-21 07:44 | disposition home or self-care (01) ==
LOC: HO.HWS 07:27
PROVIDERS: PCP Internal Medicine; Visit Provider Obstetrics & Gynecology
DX: D25.9 Leiomyoma of uterus, unspecified (principal); Z32.02 Encounter for pregnancy test, result negative
CPT/HCPCS: 99213

== ENCOUNTER 2024-04-21 07:27 | Outpatient (REF) | payer OTHER, SELFPAY ==
[2024-04-21 08:15] LABS: Hemoglobin 14.5 g/dl (12.0-16.0); Mean Corpuscular HGB Conc 34.5 g/dl (31.0-35.0); Mean Corpuscular Hemoglobin 33.8 pg (27.0-33.0); Mean Corpuscular Volume 97.9 fL (80.0-98.0); Mean Platelet Volume 10.5 fL (9.4-12.3); Platelet Count 299 X10*3/uL (160-400); Red Blood Count 4.29 X10*6/uL (4.20-5.50); Red Cell Distribution Width 11.5 % (11.0-16.0); White Blood Count 7.4 X10*3/uL (4.8-10.8)
== END 2024-04-21 07:28 | disposition home or self-care (01) ==
LOC: HO.LAB 07:27
PROVIDERS: PCP Internal Medicine; Visit Provider Obstetrics & Gynecology
DX: D25.9 Leiomyoma of uterus, unspecified (principal); Z32.02 Encounter for pregnancy test, result negative
CPT/HCPCS: 36415; 81025; 85027; 99212

== ENCOUNTER 2024-05-09 16:28 | Outpatient (AMB) | payer OTHER, SELFPAY ==
--- NOTE | 2024-05-09 16:30 | MHC.PC.OV ---
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 Accompanied by: Self / Same As Patient Allergies diphtheria,pertussis (acellular),te [From Adacel(Tdap Adolesn/Adult)(PF)] Allergy (Intermediate, Verified 05/09/24 16:39) Swelling metronidazole [Flagyl] Allergy (Intermediate, Verified 05/09/24 16:39) itching Medication List - Last Reconciled 05/09/24 by Dayana Huffman MD albuterol sulfate 90 mcg/actuation (Ventolin HFA) 1 puff inhalation Q4H PRN atorvastatin 20 mg PO BEDTIME 90 days Breo Ellipta 200-25 mcg/dose (fluticasone furoate-vilanterol) 1 inh inhalation DAILY 30 days NS bupropion HCl XL 300 mg PO QAM 90 days cholecalciferol (vitamin D3) 50 mcg PO DAILY fenofibrate 54 mg PO DAILY 90 days hydroxyzine HCl 25 mg PO TID PRN 30 days lforvk-uoamjwdu-eogoohu 12,000-38,000 -60,000 unit (Creon) 1 cap PO QID medroxyprogesterone (Provera) 10 mg PO DAILY 90 days omeprazole 20 mg PO DAILY polyethylene glycol 3350 (Miralax) 17 grams PO DAILY semaglutide (weight loss) (Wegovy) 0.25 mg (0.5 mL) subcut QWEEK 4 weeks sennosides (Natural Senna Laxative) 8.6 mg PO BEDTIME simethicone 125 mg PO BID-QID PRN Tobacco use date assessed: 10/26/23 Dental Screening Dental Screen Date: 10/26/23 HPI HPI Comments History of Present Illness Details This is a 54-year-old female with mild major depression, mixed hyperlipidemia, impaired glucose tolerance and obesity that comes today for follow-up on her conditions. Depression has improved with bupropion 100 mg. On statins and fibrates for her dyslipidemia. Has impaired glucose tolerance and was advised to start a low-carbohydrate diet due to the risk of cardiovascular disease. She is obese with a BMI of 32.9 and has been doing diet and exercise with mild improvement. No chest pain or shortness on breath. [facility] Medical History (Updated 05/09/24 @ 16:49 by Dayana Huffman MD) Obesity, Class I, BMI 30-34.9 Fibromyalgia Immunization due Physical exam Hypovitaminosis D GERD (gastroesophageal reflux disease) Mixed hyperlipidemia Leukopenia Abdominal pain Anxiety and depression Constipation Skin lesion Surgical History Hx of colonoscopy History of dilatation and curettage Family History Father Stroke Mother Diabetes Hypertension Depression Maternal Aunt Diabetes Daughter Diabetes Social History Household Members: None Housing: House Alcohol intake: current Alcohol intake frequency: holidays/special occasions only Patient Tobacco Use Status: Never used Tobacco e-Cigarette/Vaping Use: Never Used Second Hand Smoke Exposure: No service: No Current occupational status: employed Current occupational exposures/hazards: No Sexual orientation: Straight/Heterosexual Gender identity: Female Cognitive needs: No Hearing needs: No Vision needs: Yes Questionnaire PHQ-9 Over the last 2 weeks, how often have you been bothered by any of the following problems? 1. Little interest or pleasure in doing things: several days 2. Feeling down, depressed, or hopeless: several days 3. Trouble falling or staying asleep, or sleeping too much: nearly every day 4. Feeling tired or having little energy: several days 5. Poor appetite or overeating: several days 6. Feeling bad about yourself - or that you are a failure or have let yourself or your family down: not at all 7. Trouble concentrating on things, such as reading the newspaper or watching television: not at all 8. Moving or speaking so slowly that other people could have noticed. Or the opposite - being so fidgety or restless that you have been moving around a lot more than usual: not at all 9. Thoughts that you would be better off or of hurting yourself in some way: not at all Total score: 7 Depression Screening Interpretation: Positive Depression Screening Follow-up: Existing condition, In treatment and Follow-up Visit Requested Depression Screening Done: Yes 80604 - PHQ-9 Billing: Yes Source: Developed by Drs. Best Delarosa, Shannan Steve, Sergio Haile and colleagues, with an educational kristal from [employer]. Thrive Questionnaire Date Thrive assessed: 05/09/24 I am a: Patient What is your living situation today?: I have a steady place to live Within the past 12 months, did the food you bought not last and you didn't have the money to get more?: Never true Within the past 12 months, did you worry whether your food would run out before you got money to buy more?: Never true Do you have trouble paying for medicines?: No Do you have trouble getting transportation to medical appointments?: No Do you have trouble paying your heating and electricity bill?: No Do you have trouble taking care of your child, family member or friend?: No Do you have trouble with day-to-day activities such as bathing, preparing meals, shopping, managing finances, etc.?: No Are you currently unemployed and looking for a job?: No Are you interested in more education?: No Please select the resources that you would like help with: None Currently or been in a relationship where the following occur: No concerns reported THRIVE Score: 0 AUDIT C Alcohol Use Questionnaire (AUDIT-C) 1. How often do you have a drink containing alcohol?: 2-4 times a month 2. How many drinks containing alcohol do you have on a typical day when you are drinking?: 1 or 2 3. How often do you have six or more drinks on one occasion?: Never Total Score: 2 FATIMAH-7 AMB Questionnaire FATIMAH-7 Date FATIMAH - 7 assessed: 05/09/24 Feeling nervous, anxious, or on edge: 3 = Nearly every day Not being able to stop or control worryin = Several days Worrying too much about different things: 3 = Nearly every day Trouble relaxin = Several days Being so restless that it is hard to sit still: 1 = Several days Becoming easily annoyed or irritable: 0 = Not at all Feeling afraid as if something awful might happen: 1 = Several days Total FATIMAH-7 score (0-4 normal; 5-9 mild; 10-14 moderate; 15-21 severe): 10 Source: Developed by Shannan Mendes Kurt Kroenke and colleagues, with an educational kristal from [employer]. FATIMAH-7 Assessment Billing FATIMAH-7 Assessment Tool: FATIMAH-7 Assessment 25527 Review of Systems Const All systems reviewed & are unremarkable except as noted in HPI and below Card Denies chest pain at rest, Denies chest pain with activity, Denies edema, Denies irregular heart rhythm, Denies claudication, Denies dyspnea, Denies dyspnea on exertion, Denies orthopnea, Denies paroxysmal nocturnal dyspnea and Denies slow heart rate Resp Denies cough, Denies dyspnea and Denies dyspnea on exertion GI Denies abdominal pain, Denies change in bowel habits, Denies excessive flatus, Denies nausea and Denies vomiting Denies urinary incontinence, Denies urinary hesitancy and Denies urinary urgency Musc Denies atrophy, Denies deformity and Denies limited range of motion Skin/Breast Denies bleeding lesions, Denies changing lesions and Denies rash Physical exam (Primary Care) Vital Signs: Last Vital Signs BP 122/80 05/09/24 16:31 BMI result Body Mass Index 32.9 Tobacco/Smoking Status: Tobacco use Status Tobacco use date assessed 10/26/23 05/09/24 16:38 Patient Tobacco Use Status Never used Tobacco 05/09/24 16:38 e-Cigarette/Vaping Use Never Used 05/09/24 16:38 PHQ-9: PHQ-9 Score PHQ-9: Total score 7 05/09/24 16:46 Depression Screening Interpretation: Positive Depression Screening Follow-up: Existing condition, In treatment and Follow-up Visit Requested Thrive Assessment: Date of Thrive Assessment Date Thrive assessed 05/09/24 05/09/24 16:38 Currently or been in a relationship where the following occur: No concerns reported Resp Effort & Inspection: normal respiratory effort Auscultation: clear to auscultation bilaterally Cardio Jugular venous distension: no JVD Rate: regular rate Rhythm: regular rhythm Heart sounds: S1 normal heart sound present and S2 normal heart sound present GI Inspection: Yes normal to inspection Palpation (GI): Soft to palpation and nontender Auscultation: normal bowel sounds Skin General skin exam: no rashes or lesions noted Neuro General: no focal motor deficits Extrem General: Yes full ROM Psych Appearance: grossly normal Assessment and Plan Assessment & Plan (1) Mild major depression: Code(s): F32.0 - Major depressive disorder, single episode, mild Plan: Continue bupropion. (2) Obesity, Class I, BMI 30-34.9: Code(s): E66.9 - Obesity, unspecified Plan: Continue diet and exercise. BMI goal is less than 30. (3) Impaired glucose tolerance: Code(s): R73.02 - Impaired glucose tolerance (oral) Plan: Continue low-carbohydrate diet. (4) Mixed hyperlipidemia: Code(s): E78.2 - Mixed hyperlipidemia Plan: Continue statins and fibrates. Orders: Referrals Communications Agent Nutrition Referral E66.9 - Obesity, unspecified, E78.2 - Mixed hyperlipidemia, R73.02 - Impaired glucose tolerance (oral) Coding Level of Care Code Est Pt Level 4 (38820) Complex EM visit Add On G2211 Diagnoses Mild major depression F32.0 Obesity, Class I, BMI 30-34.9 E66.9 Impaired glucose tolerance R73.02 Mixed hyperlipidemia E78.2 Additional Codes FATIMAH-7 Assessment Billing - FATIMAH-7 Assessment Tool: FATIMAH-7 Assessment 97560 ([id number]) Time Spent (min) 22
[2024-05-09 16:31] VITALS: BP 122/80; BMI 32.9
== END 2024-05-09 16:53 | disposition home or self-care (01) ==
PROVIDERS: PCP Internal Medicine; Visit Provider Internal Medicine
DX: F32.0 Major depressive disorder, single episode, mild (principal); E66.9 Obesity, unspecified; R73.02 Impaired glucose tolerance (oral); E78.2 Mixed hyperlipidemia

== ENCOUNTER → 2024-05-09 16:28 | Outpatient (BNVA) | payer OTHER, SELFPAY | PROVIDERS: PCP Internal Medicine; Visit Provider Internal Medicine | DX: F32.0 Major depressive disorder, single episode, mild (principal); E66.9 Obesity, unspecified; R73.02 Impaired glucose tolerance (oral); E78.2 Mixed hyperlipidemia | CPT/HCPCS: 96127; 99212 ==

== ENCOUNTER 2024-06-03 12:22 | Outpatient (REF) | payer OTHER, SELFPAY ==
[2024-06-03 12:31] LABS: Hematocrit 40.7 % (37.0-47.0); Hemoglobin 14.2 g/dl (12.0-16.0); Mean Corpuscular HGB Conc 34.9 g/dl (31.0-35.0); Mean Corpuscular Hemoglobin 33.8 pg (27.0-33.0); Mean Corpuscular Volume 96.9 fL (80.0-98.0); Mean Platelet Volume 10.4 fL (9.4-12.3); Platelet Count 317 X10*3/uL (160-400); Red Cell Distribution Width 11.9 % (11.0-16.0)
== END 2024-06-03 12:23 | disposition home or self-care (01) ==
LOC: HO.LAB 12:22
PROVIDERS: PCP Internal Medicine; Visit Provider Obstetrics & Gynecology
DX: D25.9 Leiomyoma of uterus, unspecified (principal)
CPT/HCPCS: 36415; 85027

== ENCOUNTER 2024-07-08 15:19 | Outpatient (AMB) | payer OTHER, SELFPAY ==
--- NOTE | 2024-07-08 15:23 | A.OFFVIS_ITS ---
Vital Signs 07/08/24 15:30 Height 5 ft 1 in Weight 174 lb BMI 32.9 BP 126/78 Intake Visit Reasons: vaginal pain/ ? herpes Quality Assurance Assistant: Quality Assurance Assistant Present Allergies diphtheria,pertussis (acellular),te [From Adacel(Tdap Adolesn/Adult)(PF)] Allergy (Intermediate, Verified 07/08/24 15:24) Swelling metronidazole [Flagyl] Allergy (Intermediate, Verified 07/08/24 15:24) itching Is last menstrual period known: Yes HPI Comments Details: Patient is here today with complaints of soreness to the left labia inner minora since Thursday, after placing a paper towel temporarily to catch any possible blood loss from her menses and when she removed it she noticed the area was uncomfortable and has progressively been painful this week. She has not experienced this before. Hydrocortisone cream has not been helpful. PENDING SALE TO [facility] Medical History (Updated 05/09/24 @ 16:49 by Dayana Huffman MD) Obesity, Class I, BMI 30-34.9 Fibromyalgia Immunization due Physical exam Hypovitaminosis D GERD (gastroesophageal reflux disease) Mixed hyperlipidemia Leukopenia Abdominal pain Anxiety and depression Constipation Skin lesion Surgical History Hx of colonoscopy History of dilatation and curettage Family History Father Stroke Mother Diabetes Hypertension Depression Maternal Aunt Diabetes Daughter Diabetes Social History Household Members: None Housing: House Alcohol intake: current Alcohol intake frequency: holidays/special occasions only Patient Tobacco Use Status: Never used Tobacco e-Cigarette/Vaping Use: Never Used Second Hand Smoke Exposure: No service: No Current occupational status: employed Current occupational exposures/hazards: No Sexual orientation: Straight/Heterosexual Gender identity: Female Cognitive needs: No Hearing needs: No Vision needs: Yes Review of Systems Const All systems reviewed & are unremarkable except as noted in HPI and below Endo Reports no additional complaints Physical Exam Vital Signs: Last Vital Signs BP 126/78 07/08/24 15:30 BMI result Body Mass Index 29.1 Const General: cooperative, healthy appearing and no acute distress Other: External inspection: Left labia minora with a jagged superficial abrasion 0.5 cm Speculum Exam - Vagina: normal appearance of the vagina, abnormal vaginal discharge (Small amount of white clumpy discharge) and vaginal bleeding (Small amount of blood) Speculum Exam - Cervix: normal appearance of the cervix OB/external & speculum: vaginal bleeding (Small amount of blood) Psych Appearance: well kempt Attitude: cooperative Thought process: Normal thought process present Assessment & Plan Assessment & Plan (1) Vulvar lesion: Code(s): N90.89 - Other specified noninflammatory disorders of vulva and perineum Plan Discussed plan of care-most likely is a mechanical abrasion due to the paper towel adhering to the tissue and tearing the skin, use of Vaseline to coat protect, katarzyna rinse bottle or cup of tepid water to rinse after bathroom use, pat dry, loose cotton clothing, no coitus until well healed. Follow up if area is not improving or worsening. HSV culture obtained but most likely will be negative. BV panel obtained due to increased white discharge. Await results for plan of care. All of her questions and concerns were addressed to the best of my ability and shared decision making. She is agreeable to the plan of care. This note is constructed using voice recognition software. While every effort has been made to ensure accuracy, engine room operator errors may have been included. Coding Level of Care Code Est Pt Level 3 (13796) Diagnoses Vulvar lesion N90.89
[2024-07-08 15:30] VITALS: BP 126/78; BMI 32.9
== END 2024-07-08 15:41 | disposition home or self-care (01) ==
LOC: HO.HWS 15:19
PROVIDERS: PCP Internal Medicine; Visit Provider Advanced Practice Midwife
DX: N90.89 Other specified noninflammatory disorders of vulva and perineum (principal)
CPT/HCPCS: 99213

== ENCOUNTER 2024-07-08 15:19 | Outpatient (REF) | payer OTHER, SELFPAY ==
[2024-07-09 13:42] LABS: CT PCR NOT DETECTED (Not Detect.); NG PCR NOT DETECTED (Not Detect.)
== END 2024-07-08 15:20 | disposition home or self-care (01) ==
LOC: HO.LNP 15:19
PROVIDERS: PCP Internal Medicine; Visit Provider Advanced Practice Midwife
DX: N90.89 Other specified noninflammatory disorders of vulva and perineum (principal); Z20.2 Contact with and (suspected) exposure to infections with a predominantly sexual mode of transmission
CPT/HCPCS: 87255; 87491; 87591; 99212

== ENCOUNTER 2024-08-06 08:27 | Outpatient (REF) | payer OTHER, SELFPAY ==
--- OUTSIDE RECORDS SUMMARY | 2024-08-06 08:30 | XMS_ITS | Data Portability ---
Author Organization [place] [facility] Address [address] [place] [id number] Care Team Providers Care Territory Business Manager Name Role Phone YUNG LINCOLN Primary Care Provider Assessment Encounter Date Assessment Date Assessment LastModified by Organization Details LastModified Time 09/28/2021 09/28/2021 Time On Scene with Patient: 03:06:45 Overview/Histor y:51 year old female patient with PMH of anxiety, hyperlipidemia, depression, constipation, and GERD complains of N/V/D, and exacerbation of abdominal pain since 11 p.m. yesterday. She has vomited > 8 times as well lose BM. States she is currently followed by GI for chronic abdominal discomfort and abdominal distension with follow up on 10/04. She was recently diagnosed with pancreatitis and admits to having one beer yesterday. She was prescribed Creon to assist with pancreatic levels. She was diagnosed with Covid on 09/03, prescribed abx on 09/04, and prescribed Prednisone for dyspnea on exertion on 09/17. She felt as though she was taking too many medications and stopped them all including Creon. Of note: Patient had u/s done which was ordered by GI to rule out gallbladder disease. She is not vaccinated against Covid or Influenza. Exam: Patient greeted DH wearing comfortable clothes. She was on the phone with her sister who was concerned over her health. She was well appearing, well nourished, in euthymic mood. Alert and oriented. Normocephalic, atraumatic. Oral mucous membrane and tongue dry. Poor skin turgor . Respiratory rate normal with no use of accessory muscles. Cardiac assessment S1, S2, no murmur,however tachycardic. Initial pulse assessment 140 with end of visit 120 b/p/m. Abdomen round, soft, with positive bs x 4 quads, no pain with palpation. DDx considered, but not limited to: GI obstruction, gastroenteritis , influenza Work up/Results: Influenza testing done with negative finding. Chem 8 done with normal finding. Normal Saline administered IV, amylase and lipase levels pending. Given physical exam GI obstruction less likely diagnostic. Influenza test done with negative finding. There is still a possibility that GI virus is a culprit, however given her symptoms and already made diagnosis of pancreatitis it is possible it was exacerbated by alcohol intake. Encouraged patient to follow clear liquid diet for 24-48 hours and slowly introduce BRAT diet. She is to follow up with GI on 09/30. Patient appeared to be in better spirits and walked team to door. [email or web address] Not available 09/28/2021 16:33:54 Plan of Treatment Reminders Order Date Submit Date Provider Last Modified By Organization Details Last Modified Time Details Appointments None recorded. Lab amylase, serum or plasma 2021 [facility], [address] [place], [address], 16:04:41 lipase, serum or plasma 2021 [facility], [address] [place], [address], 16:04:47 BMP + ionized calcium, serum or plasma 2021 [facility], [address], [place], [address], 13:28:25 Referral None recorded. Procedures None recorded. Surgeries None recorded. Imaging None recorded. Medication Orders sodium chloride 0.9 % intravenous solution 2021 [email or web address] Not available 12:20:36 Zofran 2 mg/mL intravenous solution 2021 [email or web address] Not available 12:20:37 Patient TargetsNo targets recorded. Patient Instructions Encounter Date Encounter Id Patient Instructions Last Modified By Organization Details Last Modified Time 09/28/2021 [id number] pancreatitis: ca re instructions [email or web address] [id number] Not available 09/28/2021 11:09:10 diet for chronic pancreatitis: care instructions [email or web address] [id number] Not available 09/28/2021 11:09:16 learning about a cute pancreatitis [email or web address] Not available 09/28/2021 11:09:15 You have [facility] se en [email or web address], vomiting, diarrhea, and abdominal pain. You were recently diagnosed with pancreatitis. With pancreatitis you should avoid alcohol comsumption and follow pancreatitis diet attached. Please follow up with scheduled GI appointment on 09/30/21. Seek emergency care or call 911 with worsening of symptoms, shortness of breath, chest pain, fever, severe abdominal pain. Acute Nausea and Vomiting/Diarrhea BASIC INFORMATION Acute nausea and vomiting often start suddenly, worsen quickly, and last a few hours to 24 hours. Nausea and vomiting most often occur together, although they can occur alone. Cases of acute nausea and vomiting are often from gastrointestinal viruses such as norovirus, rotavirus and influenza. Less often it can be caused by toxins released from food that ? goes bad? as well as some types of bacteria and parasites. Diarrhea can also occur. Your nurse practitioner will conduct a careful history to help determine if you have one of the more serious causes. The cause of your nausea and vomiting may be unknown. INSTRUCTIONS Medicines: 1) Anti-nausea: You may have been given a prescription for an anti nausea medicine such as Zofran, Phenergan or Compazine. These can be used every 6-8 hours to help prevent nausea and vomiting. They can make you sleepy, so do not drive after taking them. Be sure to read all of the drug information from the pharmacy. 2) Tylenol: Low grade fever is common with acute nausea and vomiting. You may use Tylenol, per the recommended dosing on the label, to help control fever. If you have liver disease, do not use Tylenol. Ask your [employer] how to address fever if you are concerned about Tylenol use. 3) Anti-diarrheal medicines: These are available [id number], but in some cases are not recommended and can even worsen some cases of intestinal problems. Ask your [employer] if you should use them. In children under 12, the only anti-diarrheal that should be considered is Kaopectate. Diet: 1) For the next 12-24 hours, take clear liquids only. No dairy and no caffeinated beverages. After you have not vomited for a complete hour (either with or without the help of the anti-nausea medicine), begin by taking one tablespoon of clear liquid every 15 minutes for one hour. If you are able to tolerate this, you may increase the amount to 2 tablespoons every hour for the next 2 hours. 2) Clear liquids such as gatorade, pedialyte or broth are recommended because of the electrolytes and sugars that will help replenish the losses from vomiting and diarrhea. 3) If you are able to tolerate clear liquids as instructed above, you may begin to take a bland diet. Plain pasta/noodles or toast are suggestions. If you have had diarrhea, bananas, rice and applesauce are suggested as these can help make the stools more solid. Avoid greasy, fatty or fried foods FOLLOW UP You should make an appointment to see your primary care provider within 24 hours or sooner for worsening condition as described below. If you do not have a primary care doctor, you should follow up with one of the PCP suggestions from [facility]. SEEK CARE IMMEDIATELY IF: 1) You are still unable to tolerate any oral intake after 24 hours 2) You have blood in your vomit or stool 3) You develop severe abdominal pain that does not go away after an episode of vomiting or diarrhea 4) You have severe dizziness, heart palpitations or are passing out 5) You develop severe muscle cramps or weakness 6) You have not made urine in over 24 hours If you develop any new or worsening symptoms and need after hours care, please go to nearest ER and/or call 911. If you have additional concerns or develop a change in your condition between 8am-10pm, please call [facility] at [phone] to help navigate your care. Thank you for your visit with [facility] today. You were seen today for abdominal pain, nausea, vomiting and/or diarrhea. Medications may have been administered and lab tests may have been performed. At this time, we do not see evidence of a serious surgical or infectious cause of your symptoms. However, lab tests and an evaluation cannot always exclude appendicitis or other serious causes of abdominal pain. Please see a medical professional in 12-24 hours to be re-examined. Seek immediate medical attention for increased pain, vomiting or fever. If you develop any new or worsening symptoms and need after hours care, please go to nearest ER and/or call 911. If you have additional concerns or develop a change in your condition between 8am-10pm, please call [facility] at [phone] to help navigate your care. [email or web address] Not available 09/28/2021 12:51:20 Reason for Referral None Reported. Results Created Date Observation Date Name Description Value Unit Range Abnormal Flag Note LastModifiedBy Organization Detail LastModifiedTime 09/28/19 22 09/28/2021 AMYLA SE amylase 44 U/L (28-10 0) Not Available [facility] [address] [place], [address], 09/28/2021 16:04:40 09/28/19 22 09/28/2021 LIPAS E lipase 14 U/L (13-60 ) Not Available [facility] [address] [place], [address], 09/28/2021 16:04:47 09/28/19 22 09/28/2021 BMP + IONIZ ED CALCI UM, SERUM OR PLASM A glu 121 mg/dL 70-105 Not Available [address] [place], [address], 09/28/2021 13:28:25 09/28/19 22 09/28/2021 BMP + IONIZ ED CALCI UM, SERUM OR PLASM A BUN 10 mg/dL 8-26 Not Available [facility] [address] [place], [address], 09/28/2021 13:28:25 09/28/19 22 09/28/2021 BMP + IONIZ ED CALCI UM, SERUM OR PLASM A crea 0.7 mg/dL 0.6-1. 3 Not Available [facility] [address] [place], [address], 09/28/2021 13:28:25 09/28/19 22 09/28/2021 BMP + IONIZ ED CALCI UM, SERUM OR PLASM A Na 139 mmol/ L 138-14 6 Not Available [address], [address], 09/28/2021 13:28:25 09/28/19 22 09/28/2021 BMP + IONIZ ED CALCI UM, SERUM OR PLASM A K 4.5 mmol/ L 3.5-4. 9 Not Available [address], [address], 09/28/2021 13:28:25 09/28/19 22 09/28/2021 BMP + IONIZ ED CALCI UM, SERUM OR PLASM A cL 103 mmol/ L 98-109 Not Available [address], [address], 09/28/2021 13:28:25 09/28/19 22 09/28/2021 BMP + IONIZ ED CALCI UM, SERUM OR PLASM A TCO2 24 mmol/ L 24-29 Not Available [address], [address], 09/28/2021 13:28:25 09/28/19 22 09/28/2021 BMP + IONIZ ED CALCI UM, SERUM OR PLASM A angap 17 mmol/ L 10-20 Not Available [address], [address], 09/28/2021 13:28:25 09/28/19 22 09/28/2021 BMP + IONIZ ED CALCI UM, SERUM OR PLASM A ica 1.12 mmol/ L 1.12-1 .32 Not Available [address], [address], 09/28/2021 13:28:25 09/28/19 22 09/28/2021 BMP + IONIZ ED CALCI UM, SERUM OR PLASM A HCT 46 %pcv 38-51 Not Available [facility] [address] [place], [address], 09/28/2021 13:28:25 09/28/19 22 09/28/2021 BMP + IONIZ ED CALCI UM, SERUM OR PLASM A Hb 15.6 g/dL 12-17 Not Available [facility] [address] [place], [address], 09/28/2021 13:28:25 Result Notes None recorded. Procedures Surgical History Date Name Laterality Status Provider Name and Address Organization Details Recorded Time IV Start Procedure - completed February Nate, KRISTA [address], [place], [address], [place] [facility] 09/28/2021 14:36:32 Imaging Results None recorded. Procedure Notes None recorded. Medical Equipment None Reported. Allergies No known drug allergies Medications Name Sig Start Date Stop Date Status Note LastModified by Organization Details LastModified Time azithromy funmilayo 250 mg tablet TAKE 2 TABLETS BY MOUTH TODAY, THEN TAKE 1 TABLET DAILY FOR 4 DAYS 09/28 completed Not Available Not Available Not Available metronida zole 0.75 % (37.5 mg/5 gram) vaginal gel APPLY VAGINALL Y AT BEDTIME FOR 5 DAYS 09/28 completed Not Available Not Available Not Available prednison e 20 mg tablet TAKE 1 TABLET BY MOUTH 3 TIMES A DAY X3 DAYS, THEN 1 TABLET TWICE A DAY X3 DAYS, THEN 1 TABLET DAILY active Not Available Not Available No t Available hydrocort isone 2.5 % topical cream with perineal applicato r USE 1 APPLICAT ION PER RECTALLY 2-4 TIMES A DAY NEEDED FOR HEMORRHO IDS active Not Available Not Available No t Available benzonata te 100 mg capsule TAKE 1 CAPSULE BY MOUTH TWICE A DAY NEEDED FOR COUGH active Not Available Not Available No t Available Gas Relief Extra Strength 125 mg capsule TAKE 1 CAPSULE 2 TO 4 TIMES A DAY NEEDED FOR ABDOMINA L DISTNTIO N active Not Available Not Available No t Available docusate sodium 100 mg capsule TAKE 1 CAPSULE BY MOUTH AT BEDTIME active Not Available Not Available No t Available omeprazol e 20 mg capsule,d elayed release TAKE 1 CAPSULE BY MOUTH TWICE A DAY active Not Available Not Available No t Available hydroxyzi ne HCl 25 mg tablet TAKE 1 TABLET BY MOUTH THREE TIMES A DAY NEEDED FOR ANXIETY active Not Available Not Available No t Available bisacodyl 5 mg tablet,de layed release TAKE 2 TABLETS BY MOUTH ONCE active Not Available Not Available No t Available sodium chloride 0.9 % intraveno us solution 1 L administ ered on scene. Time administ ered: 12 16 PM 2021 active ADMINIST ERED TO LEFT AC Not Available Not Available Not Available Zofran 2 mg/mL intraveno us solution 4 mg IV administ ered on scene. Time administ ered: 12:28 2021 active Not Available Not Available Not Avai lable amoxicill in 875 mg-potass ium clavulana te 125 mg tablet TAKE 1 TABLET BY MOUTH EVERY 12 HOURS X 7 DAYS 09/28 completed Not Available Not Available Not Available Ventolin HFA 90 mcg/actua tion aerosol inhaler TAKE 2 PUFFS INHALATI ON EVERY 6 HOURS NEEDED FOR SHORTNES S OF BREATH OR WHEEZING active Not Available Not Available No t Available escitalop tomi 5 mg tablet TAKE 1 TABLET BY MOUTH EVERY DAY active Not Available Not Available No t Available Fiber Therapy (methylce llulose) 500 mg tablet TAKE 1 TABLET BY MOUTH EVERY DAY active Not Available Not Available No t Available Fiber Therapy Laxative (psyllium husk) 0.52 gram capsule TAKE 1 CAPSULE BY MOUTH EVERYDAY AT BEDTIME active Not Available Not Available No t Available cholecalc iferol (vitamin D3) 50 mcg (2,000 unit) capsule TAKE 1 CAPSULE BY MOUTH EVERY DAY active Not Available Not Available No t Available fenofibra te 54 mg tablet TAKE 1 TABLET BY MOUTH EVERY DAY active Not Available Not Available No t Available Creon 12,000-38 ,000-60,0 00 unit capsule,d elayed release TAKE 1 CAPSULE BY MOUTH 4 TIMES A DAY. ADMINIST ER WITH MEALS AND/OR SNACKS active Not Available Not Available No t Available Gavilax 17 gram/dose oral powder TAKE DIRECTED BY GASTROEN TEROLOGY DEPARTME NT AT [facility] active Not Available Not Available No t Available Adult Probiotic 3 billion cell capsule 3000 MMU CELLS PO DAILY ADMINIST ER WITH A MEAL active Not Available Not Available No t Available Vitals Date Recorded Oxygen saturation Oxygen saturation in Arterial blood by Pulse oximetry Respiratory rate Heart rate Body temperature Heart rate Systolic blood pressure Diastolic blood pressure Provider Name and Address Organization Details Last Updated DateTime 97 % 97 % 18 /min 140 /min 99.3 [degF] 120 /min 130 mm[Hg] 86 mm[Hg] Not Available [facility] 11:03:48 Social History Question Answer Notes LastModified by Organizat ion Details LastModified Time Tobacco Smoking Status Never Smoker February KRISTA Sullivan [address], [place], [address], [place] [facility] 09/28/2021 11:56:21 Do You Have An Advance Directive? No Information not available 09/28/2021 What Is Your Level Of Alcohol Consumption? Moderate [email or web address] Information not available 09/28/2021 What Is Your Code Status? Full Code [email or web address] Information not available 09/28/2021 Within The Past 12 Months, Has It Happened That The Food You Bought Just Didn't Last And You Didn't Have Money To Get More. No [email or web address] Information not available 09/28/2021 Within The Past 12 Months, Have You Worried That Your Food Would Run Out Before You Got Money To Buy More. No Information not available 09/28/2021 Fall Risk: Do You Feel Unsteady When Standing Or Walking? No [email or web address] Information not available 09/28/2021 Excessive Alcohol Or Drug Use No [email or web address] Information not available 09/28/2021 Does This Patient Have A PCP? Yes [email or web address] Information not available 09/28/2021 Would You Like Help Connecting To Resources? None [email or web address] Information not available 09/28/2021 Do You Use Any Illicit Or Recreational Drugs? No [email or web address] Information not available 09/28/2021 Sex: Unknown Functional Status None recorded. Mental Status None recorded. Family History Relationship Description Onset Age of this Age Resolved Age Notes LastModified by Organization Details LastModified Time Father No current problems or disability [email or web address] Not available 0 09/28/2021 11:54:06 Mother No current problems or disability [email or web address] Not available 0 09/28/2021 11:54:06 Mother Diabetes mellitus Not available 11:54:38 Mother Hypertensive disorder [email or web address] Not available 11:54:53 Medical History No medical history recorded. Gynecological HistoryNo gynecological history recorded. Obstetrics History GPAL:G 0 P 0 0 0 0 Past Encounters Encounter ID Performer Location Encounter Start Date Encounter Closed Date Diagnosis/Indication Diagnosis SNOMED-CT Code Diagnosis ICD10 Code [id number] February KRISTA [facility] [address] [place] [address] 09/28/2021 10:44:50 09/30/2021 12:03:39 Pancreatitis 20361952 K85.90 Nausea, vo miting and diarrhea 0791218 R11.2 Abdominal pain 61999565 R10.9 Health Concerns Section Related Observation LastModified by Organization Detai ls LastModified Time None Recorded Concern Status LastModified by Organization Details LastModified Time None Recorded Advance Directives Directive N: Payers Encounter Date Sequence Insurance Name Policy Number Policy Gee Covered Member ID Gee Member ID Guarantor Name 09/28/2021 1 [facility] PL[facility] (MEDICAID HMO) [id number] Amarilis Gerber [id number] Amarilis Gerber Notes Date Note Type Note Provider Name and Address Organization Details Recorded Time 09/28/2021 text/html 51 year old mary zuniga patient complains of N/V/D, and exacerbation of abdominal pain since 11 p.m. yesterday. She has vomited > 8 times as well lose BM. States she is currently followed by GI for chronic abdominal discomfort and abdominal distension with follow up on 10/04. She was recently diagnosed with pancreatitis and admits to having one beer yesterday. She was prescribed Creon to assist with pancreatic levels. She was diagnosed with Covid on 09/03, prescribed abx on 09/04, and prescribed Prednisone for dyspnea on exertion on 09/17. She felt as though she was taking too many medications and stopped them all including Creon. Of note: Patient had u/s done which was ordered by GI to rule out gallbladder disease.She is not vaccinated against Covid or Influenza. February KRISTA Sullivan [address], [place], [address], [place] [facility] 10/01/2021 01:49:43 OBGyn Episode No OBEpisode recorded.
== END 2024-08-06 08:28 | disposition home or self-care (01) ==
LOC: HO.MAMMO 08:27
PROVIDERS: PCP Internal Medicine; Visit Provider Internal Medicine
DX: Z12.31 Encounter for screening mammogram for malignant neoplasm of breast (principal)
CPT/HCPCS: 77063; 77067

== ENCOUNTER → 2024-08-06 09:00 | Outpatient (BNV) | payer OTHER, SELFPAY | PROVIDERS: PCP Internal Medicine; Visit Provider Internal Medicine | DX: Z12.31 Encounter for screening mammogram for malignant neoplasm of breast (principal) | CPT/HCPCS: 77063; 77067 ==

== ENCOUNTER 2024-11-23 11:01 | Outpatient (AMB) | payer OTHER, SELFPAY ==
--- NOTE | 2024-11-23 11:30 | A.OFFPC_ITS ---
Vital Signs 11/23/24 11:31 Height 5 ft 1 in Weight 156 lb BMI 29.5 BP 110/58 L Blood Pressure Location Lt brachial Position Sitting Pulse 74 Pulse Source Pulse Oximeter Temp 97.3 F Temp Source Temporal Artery Scan Pulse Oximetry (%) 97 Oxygen Delivery Method Room Air Intake Visit Reasons: transfer from [facility]/Physical Contact Manager Required: No Accompanied by: Self / Same As Patient Allergies diphtheria,pertussis (acellular),te [From Adacel(Tdap Adolesn/Adult)(PF)] Allergy (Intermediate, Verified 11/23/24 11:44) Swelling metronidazole [Flagyl] Allergy (Intermediate, Verified 11/23/24 11:44) itching Medication List - Last Reconciled 11/23/24 by Manjit Zavala PA-C albuterol sulfate 90 mcg/actuation (Ventolin HFA) 1 puff inhalation Q4H PRN atorvastatin 20 mg PO BEDTIME 90 days Breo Ellipta 200-25 mcg/dose (fluticasone furoate-vilanterol) 1 inh inhalation DAILY 30 days NS bupropion HCl XL 150 mg PO QAM 90 days cholecalciferol (vitamin D3) 50 mcg PO DAILY fenofibrate 54 mg PO DAILY 90 days hydroxyzine HCl 25 mg PO TID PRN 30 days iecdxh-vqvatyck-uullqkg 12,000-38,000 -60,000 unit (Creon) 1 cap PO QID medroxyprogesterone (Provera) 10 mg PO DAILY 90 days omeprazole 20 mg PO DAILY paroxetine HCl 10 mg PO DAILY 90 days polyethylene glycol 3350 (Miralax) 17 grams PO DAILY semaglutide (weight loss) (Wegovy) 0.25 mg (0.5 mL) subcut QWEEK 4 weeks sennosides (Natural Senna Laxative) 8.6 mg PO BEDTIME simethicone 125 mg PO BID-QID PRN tirzepatide (weight loss) (Zepbound) 2.5 mg (0.5 mL) subcut QWEEK 4 weeks Tobacco use date assessed: 11/23/24 Dental Screening Dental Screen Date: 11/23/24 Did you have a dental visit in the last 12 months?: Yes Did you have a dental problem in the last 6 months where you did not have access to dental care?: No Was dental information given to patient?: Patient has dentist HPI transfer from [facility]/Physical HPI Details Patient is a 54-year-old female here today for a transfer of care visit annual physical. Patient has a past medical history significant for anxiety, hyperlipidemia,. Glucose metabolism, asthma. .. Obesity: Has been able to lose significant amount of weight due to being more physically active and changing eating habits. Her BMI is now 29. He is asking for GLP 1 though will try oral formulation of weight loss medication to see if we can lose a bit weight. .. Hyperlipidemia: Most recent lipid panel showing elevated total cholesterol and triglycerides. She has been on atorvastatin and fenofibrate for quite some time now. Will recheck fasting lipid panel since she has lost significant amount of weight and has made dietary modifications. .. Asthma: Patient followed by [facility]. She continues with a maintenance inhaler . . Major depressive disorder: The psychiatric history is marked by depression and anxiety, significantly exacerbated by personal life events. The patient is engaged in counseling services and highlights the need for potential medication management during intense depressive episodes, even as she expresses general reluctance towards medication use. She is currently using Wellbutrin. 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 Mammogram: Done in July of 2024 [facility] Medical History Obesity, Class I, BMI 30-34.9 Fibromyalgia Immunization due Physical exam Hypovitaminosis D GERD (gastroesophageal reflux disease) Mixed hyperlipidemia Leukopenia Abdominal pain Anxiety and depression Constipation Skin lesion Surgical History Hx of colonoscopy History of dilatation and curettage Family History Father Stroke Mother Diabetes Hypertension Depression Maternal Aunt Diabetes Daughter Diabetes Social History (Updated 11/23/24 @ 12:02 by Manjit Zavala PA-C) Household Members: None Housing: House Alcohol intake: current Alcohol intake frequency: 0-2 drinks per day Alcohol type: wine Patient Tobacco Use Status: Never used Tobacco e-Cigarette/Vaping Use: Never Used Second Hand Smoke Exposure: No service: No Current occupational status: employed 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 Best Delarosa, Shannan Steve, Sergio Haile and colleagues, with an educational kristal from [employer]. Review of Systems Const Denies body aches, Denies chills, Denies excessive sweating, Denies fatigue, Denies fever(s) and Denies headache(s) Eyes Denies blurry vision ENT Denies dysphagia, Denies vertigo, Denies dizziness, Denies headache(s), Denies hearing loss and Denies tinnitus Card Denies chest pain, Denies chest pain with activity, Denies syncope, Denies irregular heart rhythm and Denies dyspnea Resp Denies chest congestion, Denies cough, Denies hemoptysis, Denies dyspnea and Denies wheezing GI Denies abdominal pain, Denies melena, Denies hematochezia, Denies coffee ground emesis, Denies dysphagia, Denies diarrhea, Denies nausea and Denies vomiting Denies urinary frequency, Denies dysuria, Denies urinary hesitancy and Denies urinary urgency Musc Denies arthralgias, Denies limited range of motion, Denies muscle cramps and Denies muscle weakness Skin/Breast Denies rash and Denies skin ulcer Neuro Denies Abnormal speech present, Denies confusion, Denies vertigo, Denies dizziness, Denies syncope, Denies headache(s), Denies memory loss and Denies seizure-like activity Psych Denies anxiety, Denies confusion, Denies depression, Denies memory loss, Denies panic attacks and Denies paranoia Endo Denies excessive sweating, Denies fatigue, Denies flushing, Denies polydipsia and Denies polyuria Aller/Immun Denies wheezing Physical exam (Primary Care) Vital Signs: Last Vital Signs Temp 97.3 F 11/23/24 11:31 Pulse 74 11/23/24 11:31 BP 110/58 L 11/23/24 11:31 Pulse Ox 97 11/23/24 11:31 Oxygen Delivery Method Room Air 11/23/24 11:31 BMI result Body Mass Index 29.5 Tobacco/Smoking Status: Tobacco use Status Tobacco use date assessed 11/23/24 11/23/24 11:42 Patient Tobacco Use Status Never used Tobacco 11/23/24 12:02 e-Cigarette/Vaping Use Never Used 11/23/24 12:02 Thrive Assessment: Date of Thrive Assessment Date Thrive assessed 05/09/24 11/23/24 11:30 Const General: cooperative, comfortable, no acute distress, alert and awake; No confusion Orientation/consciousness: oriented to person, oriented to place, patient oriented x3 and No confusion HENMT Head: Yes normocephalic Ears: external ears normal and TM's normal bilaterally Face and sinus: No sinus tenderness Mouth: Normal oral and palatal mucosa present and tongue normal Teeth and gingiva: dentition normal and gingiva normal Throat: Yes posterior oropharynx normal, Yes tonsils normal and Yes uvula midline Eyes Conjunctivae: conjunctivae normal Sclerae: sclerae normal Pupils: Equal, round and reactive pupils present EOM: EOMs intact bilaterally Direct Ophthalmoscopy: No no photophobia Neck Neck: Yes no lymphadenopathy, No tender and Yes no JVD Thyroid: Thyroid normal Carotids: no bruits Chest Chest palpation & inspection: no tenderness Resp Effort & Inspection: normal respiratory effort, no audible wheezes, not labored and no stridor Auscultation: no crackles, no rales, no rhonchi and no wheezes Cardio Jugular venous distension: no JVD Rate: regular rate, not bradycardic and not tachycardic Rhythm: regular rhythm Bruits: no carotid bruits Peripheral pulses: Peripheral pulses 2+ throughout GI Inspection: Yes normal to inspection, No abdominal wall ecchymosis and No visible herniation Palpation (GI): Soft to palpation, nontender, no guarding, not rigid and No hepatosplenomegaly present Auscultation: normoactive bowel sounds General: Yes no CVA tenderness Back/Spine/Pelvis Back: no CVA tenderness and No back tenderness Cervical Spine: cervical ROM normal Thoracic/Lumbar Spine: thoracic and lumbar spine normal to inspection, straight leg raise negative bilaterally, No thoraco-lumbar ROM limited and No lumbar spinal tenderness Skin Lesions: no lesions Rashes: no rashes Wounds: no wounds Neuro General: oriented to person, oriented to place, patient oriented x3, CN's II-XI intact bilaterally and No confusion Cranial nerves: Yes Equal, round and reactive pupils present and Yes Normal accommodation reflex present Cognition (Neuro): normal cognition Speech: No Abnormal speech present Gait exam (Neuro): Normal gait present Motor exam (neuro): 5/5 motor strength present throughout Extrem Right upper extremity: full ROM; no cyanosis Left upper extremity: full ROM; no cyanosis Right lower extremity: no edema Left lower extremity: no edema Psych Appearance: grossly normal Mental Status: mental status grossly normal Affect: normal affect Attitude: cooperative Thought process: Normal thought process present Coding Level of Care Code Est Pt Prev Care 40-64y(96660) Diagnoses Annual physical exam Z00.00 FATIMAH (generalized anxiety disorder) F41.1 Impaired glucose metabolism R73.09 H/O: hysterectomy Z90. Lumbar spine pain M54.50 BMI 29.0-29.9,adult Z68.29 Assessment & Plan Assessment & Plan (1) Annual physical exam: Code(s): Z00.00 - Encounter for general adult medical examination without abnormal findings Category: Medical Plan: As per HPI (2) FATIMAH (generalized anxiety disorder): Code(s): F41.1 - Generalized anxiety disorder Category: Medical Plan: Patient does suffer with anxiety thus will like to have hydroxyzine 25 mg on hand for p.r.n. use. Again speaking with a mental health therapist (3) Impaired glucose metabolism: Code(s): R73.09 - Other abnormal glucose Category: Medical Plan: Patient has a history of impaired glucose metabolism. Has made lifestyle and dietary modifications in his lost weight. Now BMI at 29.5. Will recheck fasting lipid and A1c to evaluate diabetes. (4) H/O: hysterectomy: Code(s): Z90.710 - Acquired absence of both cervix and uterus Category: Surgical Plan: Patient has a history hysterectomy though still has a ovaries. She is interested in hormonal testing as he has depressive moods and attributes this possibly having issue. Since her history asking me procedure she has been having lower back pain to which she sees a chiropractor in his doing treatment with (5) Lumbar spine pain: Code(s): M54.50 - Low back pain, unspecified Category: Medical Plan: As above, she is willing to get a lumbar spine x-ray to evaluate her lower lumbar spine (6) BMI 29.0-29.9,adult: Code(s): Z68.29 - Body mass index [BMI] 29.0-29.9, adult Category: Medical Plan: As per HPI patient has lost weight with lifestyle and dietary modifications. Her BMI is now 29. She would like to continue to maintain weight loss and lose a few more lb thus will start phentermine for the next few months to see if she is able to lose more weight. At this point she is not a candidate for GLP 1 as she does not have qualifying comorbidities (type 2 diabetes, obstructive sleep apnea) Orders: Orders Lipid Panel Today E78.2 - Mixed hyperlipidemia Complete Blood Count no Diff Today E78.2 - Mixed hyperlipidemia Comprehensive [place]. Panel Fast Today R73.02 - Impaired glucose tolerance (oral) Hemoglobin A1c Today R73.02 - Impaired glucose tolerance (oral) Estrogen Today Z90.710 - Acquired absence of both cervix and uterus Follicle Stimulating Hormone Today Z90.710 - Acquired absence of both cervix and uterus Progesterone Today Z90.710 - Acquired absence of both cervix and uterus XR lumbar spine 4V min Today M54.50 - Low back pain, unspecified Medications: New phentermine must administer 2 hours after breakfast 15 mg PO DAILY 28 caps 0RF 28 days E66.9 - Obesity, unspecified Changed From hydroxyzine HCl 25 mg PO TID 30 days PRN 90 tabs 1RF anxiety F32.9 - Major depressive disorder, single episode, unspecified, F41.9 - Anxiety disorder, unspecified To hydroxyzine HCl 25 mg PO TID PRN 30 tabs 1RF anxiety 10 days F32.9 - Major depressive disorder, single episode, unspecified, F41.9 - Anxiety disorder, unspecified Discontinued omeprazole Discontinued Reason: Doctor's Order 20 mg PO DAILY 30 caps 3RF K21.9 - Gastro-esophageal reflux disease without esophagitis, R10.9 - Unspecified abdominal pain simethicone Discontinued Reason: Doctor's Order 125 mg PO BID-QID PRN 120 caps 3RF abdominal distention R10.84 - Generalized abdominal pain polyethylene glycol 3350 (Miralax) Discontinued Reason: Doctor's Order 17 grams PO DAILY 510 grams 2RF csygyl-bbksxpdz-rokbscr 12,000-38,000 -60,000 unit (Creon) administer with meals and/or snacks Discontinued Reason: Doctor's Order 1 cap PO QID 120 caps 5RF R10.9 - Unspecified abdominal pain medroxyprogesterone (Provera) Discontinued Reason: Doctor's Order 10 mg PO DAILY 90 days 90 tabs 0RF semaglutide (weight loss) (Sakinavbarak) administer weeks 1 through 4 of therapy Discontinued Reason: Doctor's Order 0.25 mg (0.5 mL) subcut QWEEK 4 weeks 2 mL 0RF E66.9 - Obesity, unspecified, E78.2 - Mixed hyperlipidemia, R73.02 - Impaired glucose tolerance (oral) Breo Ellipta 200-25 mcg/dose (fluticasone furoate-vilanterol) Discontinued Reason: Doctor's Order 1 inh inhalation DAILY 30 days 1 ea 6RF NS R05.9 - Cough, unspecified tirzepatide (weight loss) (Zepbound) for 4 weeks Discontinued Reason: Doctor's Order 2.5 mg (0.5 mL) subcut QWEEK 4 weeks 2 mL 0RF paroxetine HCl Discontinued Reason: Doctor's Order 10 mg PO DAILY 90 days 90 tabs 1RF
[2024-11-23 11:31] VITALS: BP 110/58; PULSE 74; TEMP 36.3; O2SAT 97; BMI 29.5
--- OUTSIDE RECORDS SUMMARY | 2024-11-23 13:18 | XMS_ITS | Data Portability ---
Author Organization [place] [facility] Address [address] [place] [id number] Care Team Providers Care Shoveler Name Role Phone YUNG LINCOLN Primary Care Provider [phone] Assessment Encounter Date Assessment Date Assessment LastModified [...] better spirits and walked team to door. [email or web address] Not available 09/28/2021 16:33:54 Plan of Treatment Reminders Order Date Submit Date Provider Last Modified By Organization Details Last Modified Time Details Appointments None recorded. Lab amylase, serum or plasma 2021 GIANLUCA [facility] (Centralized Electronic Ordering - All Locations), Patient Can Go To The Location Of Their Choice, [id number] 16:04:41 lipase, serum or plasma 2021 GIANLUCA [facility] (Centralized Electronic Ordering - All Locations), Patient Can Go To The Location Of Their Choice, [id number] 16:04:47 BMP + ionized calcium, serum or plasma 2021 GIANLUCA [facility], [address] [place] [address], [phone], 13:28:25 Referral None recorded. Procedures None recorded. Surgeries None recorded. Imaging None recorded. Medication Orders sodium chloride 0.9 % intravenous solution 2021 [email or web address] Not available 12:20:36 Zofran 2 mg/mL intravenous solution 2021 [email or web address] Not available 12:20:37 Patient TargetsNo targets recorded. Patient Instructions Encounter Date Encounter Id Patient Instructions Last Modified By Organization Details Last Modified Time 09/28/2021 [id number] pancreatitis: ca re instructions [id number] Not available 09/28/2021 11:09:10 diet for chronic pancreatitis: care instructions [email or web address] [id number] Not available 09/28/2021 11:09:16 learning about a cute pancreatitis [email or web address] [id number] Not available 09/28/2021 11:09:15 [facility], vomiting, diarrhea, and abdominal [...] by toxins released from food that ? g oes bad? as well as some types of [...] disease, do not use Tylenol. Ask your COW BUYER how to address fever if you are concerned about Tylenol use. 3) Anti-diarrheal medicines: These are available yyji-[id number], but in some cases are not recommended and can even worsen some cases of intestinal problems. Ask your COW BUYER if you should use them. In children [...] with one of the PCP suggestions from [facility]. SEEK CARE IMMEDIATELY IF: 1) You are [...] in your condition between 8am-10pm, please call [facility] at [phone] to help navigate your care. Thank you for your visit with [facility] today. You were seen today for abdominal [...] condition between 8am-10pm, please call [facility] at [phone] to help navigate your care. [email or web address] [id number] Not available 09/28/2021 12:51:20 Reason for Referral None Reported. Results Created Date Observation Date Name Description Value Unit Range Abnormal Flag Note LastModifiedBy Organization Detail LastModifiedTime 09/28/19 22 09/28/2021 AMYLA SE amylase 44 U/L (28-10 0) Not Available [facility] (Centralized Electronic Ordering - All Locations) Patient Can Go To The Location Of Their Choice, [id number] 09/28/2021 16:04:40 09/28/19 22 09/28/2021 LIPAS E lipase 14 U/L (13-60 ) Not Available [facility] (Centralized Electronic Ordering - All Locations) Patient Can Go To The Location Of Their Choice, [id number] 09/28/2021 16:04:47 09/28/19 22 09/28/2021 BMP + IONIZ ED CALCI UM, SERUM OR PLASM A glu 121 mg/dL 70-105 Not Available [facility] [place], [address], 09/28/2021 13:28:25 09/28/19 22 09/28/2021 BMP + IONIZ ED CALCI UM, SERUM OR PLASM A BUN 10 mg/dL 8-26 Not Available [facility] [address] [place], [address], 09/28/2021 13:28:25 09/28/19 22 09/28/2021 BMP + IONIZ ED CALCI UM, SERUM OR PLASM A crea 0.7 mg/dL 0.6-1. 3 Not Available [facility] [address] [place], [address], 09/28/2021 13:28:25 09/28/19 22 09/28/2021 BMP + IONIZ ED CALCI UM, SERUM OR PLASM A Na 139 mmol/ L 138-14 6 Not Available [address], [address], 09/28/2021 13:28:25 09/28/19 22 09/28/2021 BMP + IONIZ ED CALCI UM, SERUM OR PLASM A K 4.5 mmol/ L 3.5-4. 9 Not Available [address], [address], 09/28/2021 13:28:25 09/28/19 22 09/28/2021 BMP + IONIZ ED CALCI UM, SERUM OR PLASM A cL 103 mmol/ L 98-109 Not Available [address], [address], 09/28/2021 13:28:25 09/28/19 22 09/28/2021 BMP + IONIZ ED CALCI UM, SERUM OR PLASM A TCO2 24 mmol/ L 24-29 Not Available [address], [address], 09/28/2021 13:28:25 09/28/19 22 09/28/2021 BMP + IONIZ ED CALCI UM, SERUM OR PLASM A angap 17 mmol/ L 10-20 Not Available [address], [address], 09/28/2021 13:28:25 09/28/19 22 09/28/2021 BMP + IONIZ ED CALCI UM, SERUM OR PLASM A ica 1.12 mmol/ L 1.12-1 .32 Not Available [address], [address], 09/28/2021 13:28:25 09/28/19 22 09/28/2021 BMP + IONIZ ED CALCI UM, SERUM OR PLASM A HCT 46 %pcv 38-51 Not Available [facility] [address] [place], [address], 09/28/2021 13:28:25 09/28/19 22 09/28/2021 BMP + IONIZ ED CALCI UM, SERUM OR PLASM A Hb 15.6 g/dL 12-17 Not Available [facility] [address] [place], [address], 09/28/2021 13:28:25 Result Notes None recorded. Procedures Surgical History Date Name Laterality Status Provider Name and Address Organization Details Recorded Time IV Start Procedure - completed February KRISTA Sullivan [address], [place], [address], [place] [facility] 09/28/2021 14:36:32 Imaging Results [...] DIRECTED BY [facility] active Not Available Not Available No t [...] Smoker February KRISTA Sullivan [address], [place], [address], [place] [facility] 09/28/2021 11:56:21 Do You Have An Advance Directive? No [email or web address] Information not available 09/28/2021 What Is Your Level Of Alcohol Consumption? Moderate Information not available 09/28/2021 What Is Your Code Status? Full Code [email or web address] Information not available 09/28/2021 Within The Past 12 Months, Has It Happened That The Food You Bought Just Didn't Last And You Didn't Have Money To Get More. No [email or web address] Information not available 09/28/2021 Within The Past 12 Months, Have You Worried That Your Food Would Run Out Before You Got Money To Buy More. No [email or web address] Information not available 09/28/2021 Fall Risk: Do You Feel Unsteady When Standing Or Walking? No [email or web address] Information not available 09/28/2021 Excessive Alcohol Or Drug Use No [email or web address] Information not available 09/28/2021 Does This Patient Have A PCP? Yes [email or web address] Information not available 09/28/2021 Would You Like Help Connecting To Resources? None [email or web address] Information not available 09/28/2021 Do You Use Any Illicit Or Recreational Drugs? No [email or web address] Information not available 09/28/2021 Sex: Unknown Functional Status None recorded. Mental Status None recorded. Family History Relationship Description Onset Age of this Age Resolved Age Notes LastModified by Organization Details LastModified Time Father No current problems or disability [email or web address] Not available 0 09/28/2021 11:54:06 Mother No current problems or disability [email or web address] Not available 0 09/28/2021 11:54:06 Mother Diabetes mellitus [email or web address] Not available 11:54:38 Mother Hypertensive disorder [email or web address] Not available 11:54:53 Medical History No medical history recorded. Gynecological HistoryNo gynecological history recorded. Obstetrics History GPAL:G 0 P 0 0 0 0 Past Encounters Encounter ID Performer Location Encounter Start Date Encounter Closed Date Diagnosis/Indication Diagnosis SNOMED-CT Code Diagnosis ICD10 Code Diagnosis Note [id number] February KRISTA Sullivan [facility] [address] [place] [address] 09/28/2021 10:44:50 09/30/2021 12:03:39 Pancreatitis 10050090 K85.90 Nausea, vo miting and diarrhea 7187202 R11.2 Abdominal pain 29979082 R10.9 Health Concerns Section Related Observation LastModified by Organization Detai ls LastModified Time None Recorded Concern Status LastModified by Organization Details LastModified Time None Recorded Advance Directives Directive N: Payers Encounter Date Sequence Insurance Name Policy Number Policy Gee Covered Member ID Gee Member ID Guarantor Name 09/28/2021 1 [facility] (MEDICAID HMO) [id number] Amarilis Gerber [id number] Amarilis Gerber Notes Date Note Type Note [...] is not vaccinated against Covid or Influenza. Yudith Sullivan NP [address], [place], [address], [place] [facility] 10/01/2021 01:49:43 OBGyn Episode No OBEpisode recorded.
== END 2024-11-23 12:19 | disposition home or self-care (01) ==
LOC: HO.HMCH 11:02
PROVIDERS: PCP Physician Assistant; Visit Provider Physician Assistant
DX: Z00.00 Encounter for general adult medical examination without abnormal findings (principal); F41.1 Generalized anxiety disorder; R73.09 Other abnormal glucose; Z90.710 Acquired absence of both cervix and uterus; M54.50 Low back pain, unspecified; Z68.29 Body mass index [BMI] 29.0-29.9, adult

== ENCOUNTER → 2024-11-23 11:01 | Outpatient (BNVA) | payer OTHER, SELFPAY | PROVIDERS: PCP Physician Assistant; Visit Provider Physician Assistant ==

== ENCOUNTER 2024-12-09 16:21 | Emergency (ER) | payer OTHER, SELFPAY ==
--- NOTE | ~2024-12-09 | CT_ITS ---
CLINICAL HISTORY: abdominal pain CT ABDOMEN AND PELVIS WITH CONTRAST COMPARISON: None. FINDINGS: No evidence of a small-bowel obstruction or free air. Colonic diverticula are noted without evidence of acute diverticulitis. Portions of the colon are not optimally distended which limits assessment. No pericolonic inflammation. Appendix is visualized and there is no definite evidence of acute appendicitis. Appendix measures approximately 6 mm in caliber on axial image 478 of series 4. A fluid collection is noted adjacent to the right aspect of the rectum on axial image 562, extending inferiorly into the adjacent right ischiorectal fat. This is suspected to contain a septation is seen on coronal image 69. A medical sales representative measurement of the fluid collection on axial image 587 is 1.2 cm. Adjacent confluent soft tissue density is noted which is of uncertain significance but might be secondary to postoperative change if the patient has had previous surgery in this region. There are no gas bubbles. The lung bases are unremarkable. No focal liver lesion. Fatty liver is questioned. Gallbladder is unremarkable. No visible stone. Proximal stomach is distended with enteric contents/fluid and some gas. No CT evidence of acute pancreatitis. Spleen and adrenal glands are unremarkable. Some contrast is noted within the proximal renal collecting systems. No hydronephrosis or obstructing stone. Urinary bladder is unremarkable. Uterus is absent. No lymphadenopathy. There are subcentimeter nonenlarged lymph nodes in the mesentery. Abdominal aorta is normal in caliber without evidence of an aneurysm or dissection. No evidence of a bowel containing hernia. The bone windows demonstrate no acute abnormalities. IMPRESSION: 1. No evidence of a bowel obstruction or free air. No pericolonic inflammation. No definite evidence of appendicitis. 2. There is a fluid collection adjacent to the right aspect of the rectum, extending inferiorly into the adjacent right ischiorectal fat. This fluid collection is suspected to contain a septation, and a medical sales representative measurement of the fluid is 1.2 cm on axial image 587. Infection is not excluded. Adjacent confluent soft tissue density is noted which is of uncertain significance but might be secondary to postoperative change if the patient has had previous surgery in this region. There are no gas bubbles. Consultation with a surgeon is advised to determine appropriate management. 3. Additional findings are detailed above. This document has been electronically signed by: Wilder Garcia M.D. on 12/09/2024 22:52:56
[2024-12-09 16:29] VITALS: BP 119/59; PULSE 107; RESP 20; TEMP 37; O2SAT 100; BMI 24.1
--- NOTE | 2024-12-09 16:32 | ED_ITS ---
HPI - General Adult General Chief complaint: General Medical Stated complaint: Hemorrhoids, nausea, dizziness Time Seen by Provider: 12/09/24 20:03 Source: patient, RN notes reviewed and old records reviewed Mode of arrival: ambulatory Limitations: no limitations History of Present Illness ED Provider: Dana VALLECILLO narrative: 54-year-old female with past medical history significant for constipation, anxiety, obesity, anxiety presents for evaluation of rectal pain. Patient reports that she had which she feels to be an external hemorrhoid that has been going over last 3 days She denies any black or bloody stool She reports severe pain that is worse with sitting down She reports a history of hemorrhoids. She also complains of abdominal pain She reports that she was at lunch today and had a near syncopal episode prompting her to come to the hospital today She reports 2 months ago she had a hysterectomy for abnormal uterine bleeding She denies any other abdominal surgeries No fevers or chills Related Data Home Medications ?Medication ?Instructions ?Recorded ?Confirmed albuterol sulfate 90 mcg/actuation 1 puff inhalation Q4H PRN 12/01/23 11/23/24 aerosol inhaler (Ventolin HFA) Shortness Of Breath Or Wheezing Previous Rx's ?Medication ?Instructions ?Recorded fenofibrate 54 mg tablet 54 mg PO DAILY 90 days #90 tabs 04/07/24 sennosides 8.6 mg tablet (Natural 8.6 mg PO BEDTIME constipation #90 04/07/24 Senna Laxative) tabs bupropion HCl 150 mg 24 hr tablet, 150 mg PO QAM 90 days #90 tabs 07/28/24 extended release atorvastatin 20 mg tablet 20 mg PO BEDTIME 90 days #90 tabs 08/31/24 cholecalciferol (vitamin D3) 50 50 mcg PO DAILY #30 caps 11/09/24 mcg (2,000 unit) capsule hydroxyzine HCl 25 mg tablet 25 mg PO TID PRN anxiety 10 days 11/23/24 #30 tabs phentermine 15 mg capsule 15 mg PO DAILY 28 days #28 caps 11/23/24 oxycodone 5 mg tablet 5 mg PO Q8H PRN severe pain (scale 12/09/24 score 7-10) #15 tabs Allergies Allergy/AdvReac Type Severity Reaction Status Date / Time diphtheria,pertussis Allergy Intermediate Swelling Verified 12/09/24 16:33 (acellular),te [From Adacel(Tdap Adolesn/Adult)(PF)] metronidazole [Flagyl] Allergy Intermediate itching Verified 12/09/24 16:33 Review of Systems 2 Constitutional: Constitutional: Denies body ache(s), Denies chills, Denies fever(s) and Denies frequent falls Eyes: Eyes: Denies blurry vision Cardiovascular: Cardiovascular: Denies chest pain and Denies dyspnea Respiratory: Respiratory: Denies cough and Denies dyspnea Gastrointestinal: Gastrointestinal: Reports abdominal pain, Reports constipation, Reports nausea and Denies vomiting Musculoskeletal: Musculoskeletal: Denies back pain Integumentary/Breasts: Skin/Breast: Denies rash Neurologic: Denies frequent falls Psychiatric: Psychiatric: Denies anxiety PMFSH Past Medical History Medical History Obesity, Class I, BMI 30-34.9 Fibromyalgia Immunization due Physical exam Hypovitaminosis D GERD (gastroesophageal reflux disease) Mixed hyperlipidemia Leukopenia Abdominal pain Anxiety and depression Constipation Skin lesion Surgical History Hx of colonoscopy History of dilatation and curettage Family History Family History Father Stroke Mother Diabetes Hypertension Depression Maternal Aunt Diabetes Daughter Diabetes Social History Social History (Updated 11/23/24 @ 12:02 by Manjit Zavala PA-C) Household Members: None Housing: House Alcohol intake: current Alcohol intake frequency: holidays/special occasions only Alcohol type: wine Patient Tobacco Use Status: Never used Tobacco Smoked in Last 30 Days: No e-Cigarette/Vaping Use: Never Used Second Hand Smoke Exposure: No Use of substances other than those prescribed or required for medical reasons: No Advance Directives: No Advance Directives Information Provided: Yes Patient : No service: No Current occupational status: employed 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 occupational exposures/hazards: No Sexual orientation: Straight/Heterosexual Gender identity: Female Cognitive needs: No Hearing needs: No Vision needs: Yes Physical Exam ED Vital Signs: Vital Signs - 24 hr 12/09/24 16:29 12/09/24 19:41 12/09/24 22:40 Temperature 98.6 F 98.3 F 97.8 F Pulse Rate 107 H 108 H 106 H Respiratory Rate 20 16 16 Blood Pressure 119/59 L 137/70 116/65 Pulse Oximetry 100 100 97 Oxygen Delivery Method Room Air Room Air Room Air BMI result Body Mass Index 24.1 Const General: healthy appearing, comfortable, no acute distress, alert and awake Nutritional Appearance: well nourished Orientation/consciousness: patient oriented x3 HENMT Head: Yes normocephalic and Yes atraumatic Throat: Yes posterior oropharynx normal Eyes Eyelids: Yes eyelids normal Conjunctivae: conjunctivae normal Sclerae: sclerae normal Corneas: corneas normal Pupils: Equal, round and reactive pupils present EOM: EOMs intact bilaterally Neck Neck: Yes full ROM Resp Effort & Inspection: normal respiratory effort, able to speak in complete sentences and not labored GI Inspection: No distended Palpation (GI): Soft to palpation, not firm, nontender, no guarding and not rigid Rectal Exam - Female: abnormal visual inspection and Rectal prolapse (approximately 2x4cm at 9:00 position) Skin General skin exam: elasticity normal Neuro General: patient oriented x3 Cranial nerves: Yes Equal, round and reactive pupils present and Yes Bilaterally intact EOM present Cognition (Neuro): normal cognition Extrem Other: Moving all extremities well without any obvious deformities Course Course Course Narrative: This is a Rapid Medical Examination (RME) performed by Stanton Loera PA-C in triage. Full HPI, ROS, assessment and treatment plan per primary provider in the Main ED. 12/09/24 1663 WAGNER Ayala Hx: 54 yo female history I GERD, HLD, fibromyalgia, constipation, anxiety, depression here for evaluation of external hemorrhoids x3 days. Using witch Suzie pads and preparation H at home. Believes she may have 1 or 2. No blood in toilet or on toilet paper. No bloody stool. Reports history of similar. Reports nausea and chills. Unclear if she was just cold while in triage. Also admits to increased flatus and soft BMs today. Last normal bowel movement 2 days ago. PE/vitals: well-appearing. Not examined in triage due to privacy Plan: labs further eval and back Reevaluation(s) Reevaluation #1: Patient was evaluated by General surgery, Dr. Watkins. He feels the patient is exam is more consistent with a large, thrombosed hemorrhoid which he will open bedside Time: 22:12 Reevaluation #2: Patient's CT scan reviewed, the mass with septations is likely a large thrombosed hemorrhoid which was already addressed with the surgeon at bedside. The patient will be discharged with oxycodone for pain, bowel regimen and follow up with General surgery Time: 22:59 Medications Administered Discontinued Medications Generic Name Dose Route Start Last Admin Trade Name Mendoza PRN Reason Stop Dose Admin Acetaminophen 650 mg 12/09/24 19:55 12/09/24 20:13 Acetaminophen 325 Mg Tablet PO 12/09/24 19:56 650 mg ONCE ONE Administration Iohexol 85 ml 12/09/24 21:24 12/09/24 21:24 Iohexol 350 Mg/Ml 100 Ml Infus..Btl IV 12/09/24 21:25 85 ml ONCE ONE Administration Medical Decision Making Medical Decision Making [facility] Narrative: 54-year-old female presents for evaluation of nausea, abdominal pain and rectal pain. On exam she appears to have a fairly large rectal prolapse. I was unable to reduce this. I did attempts to cover the prolapse with granulated sugar to attempt to shrink and then again reduced. Reduction was unsuccessful again. I reached out to General surgery awaiting response. The patient does not have any significant abdominal tenderness but given that she had a near syncopal episode due to abdominal pain earlier as a slight leukocytosis a CT scan of the abdomen pelvis was ordered. Differential Diagnosis Differential Diagnoses: The differential diagnosis associated with the presentation includes Diverticulitis Colitis Rectal prolapse Internal hemorrhoids External hemorrhoid Rectal cancer Consult Healthcare Provider Management of the patient was discussed with: Trading Floor Operator (Dr Watkins) Lab Data [facility] Lab Attestation statement: I reviewed the patient's lab results. Mild leukocytosis, no significant anemia. Normal platelet count. No electrolyte abnormalities. 12/09/24 16:53 12/09/24 16:53 Labs: Lab Results 12/09/24 Range/Units 16:53 WBC 11.1 H (4.8-10.8) X10*3/uL RBC 4.51 (4.20-5.50) X10*6/uL Hgb 14.6 (12.0-16.0) g/dl Hct 42.1 (37.0-47.0) % MCV 93.3 (80.0-98.0) fL MCH 32.4 (27.0-33.0) pg MCHC 34.7 (31.0-35.0) g/dl RDW 11.8 (11.0-16.0) % Plt Count 253 (160-400) X10*3/uL MPV 10.8 (9.4-12.3) fL Immature Gran % (Auto) 0.4 (0.0-0.4) % Neut % (Auto) 91.4 H (45-73) % Lymph % (Auto) 4.4 L (20-40) % Orange % (Auto) 3.1 (2-11) % Eos % (Auto) 0.5 (0-4) % Baso % (Auto) 0.2 (0-2) % Lymph # (Auto) 0.5 L (1.2-4.9) X10*3/uL Orange # (Auto) 0.3 (0.1-1.2) X10*3/uL Eos # (Auto) 0.1 (0.0-0.4) X10*3/uL Baso # (Auto) 0.0 (0.0-0.2) X10*3/uL Abs Immat Gran (auto) 0.04 H (0.00-0.03) X10*3/uL Absolute Neuts (auto) 10.2 H (2.0-8.3) x10*3/uL Absolute Nucleated RBC 0.000 (0.0-0.012) X10*3/uL Nucleated RBC % (auto) 0.0 (0.0-0.2) /100WBC Smear Tech's Comments VERIFIED Sodium 139 (135-145) mmol/L Potassium 4.4 (3.3-5.1) mmol/L Chloride 107 (96-108) mmol/L Carbon Dioxide 23 (22-29) mmol/L Anion Gap 13 (12-20) BUN 13 (9-16) mg/dL Creatinine 0.74 (0.5-1.4) mg/dL Estim Creat Clear Calc 83.2 Estimated GFR > 60 Random Glucose 95 (60-115) mg/dL Calcium 9.3 D (8.4-10.2) mg/dL Total Bilirubin 0.5 (0.0-1.0) mg/dL AST 27 (5-31) U/L ALT 20 (0-31) U/L Alkaline Phosphatase 72 (39-117) U/L Total Protein 7.3 (6.5-8.0) g/dL Albumin 4.2 (3.5-5.0) g/dL Independent Interpretation I performed an independent interpretation of an: CT Scan (I agree with radiology interpretation) Radiology Impression Discussion of test interpretation with radiology: I have reviewed the radiologist's reading. Radiologist Impression: IMPRESSION: 1. No evidence of a bowel obstruction or free air. No pericolonic inflammation. No definite evidence of appendicitis. 2. There is a fluid collection adjacent to the right aspect of the rectum, extending inferiorly into the adjacent right ischiorectal fat. This fluid collection is suspected to contain a septation, and a sales representative wire rope measurement of the fluid is 1.2 cm on axial image 587. Infection is not excluded. Adjacent confluent soft tissue density is noted which is of uncertain significance but might be secondary to postoperative change if the patient has had previous surgery in this region. There are no gas bubbles. Consultation with a surgeon is advised to determine appropriate management. 3. Additional findings are detailed above. Attestation Attending Attestation: I was personally present and available for consultation in the ED. I have reviewed everything on the chart that is available and agree with the documentation provided by the YULI including discussion about the assessment, treatment plan and discussion. Based on medical record the care appears appropriate. Ahmet Hoskins MD [facility] Emergency Medicine Discharge Plan Discharge Clinical Impression: External hemorrhoid, thrombosed Patient Disposition: Home, Self-Care Instructions: Hemorrhoids (ED) Additional Instructions: You had a very large thrombosed hemorrhoid which was opened by Dr. Watkins, general surgery. You may use ibuprofen/Tylenol for pain. Use oxycodone for severe breakthrough pain. This may make you drowsy, do not drink alcohol or drive after taking it This can also cause increased constipation, it was important that you take your MiraLax every night and you may also want to take docusate sodium as well Increase fluid and fiber intake in your diet You also need to do Sitz baths or warm soaks every 4 hours Follow-up with general surgery at the number provided Dr. Watkins recommends that you follow-up in 1 week Prescriptions: New oxycodone 5 mg tablet 5 mg PO Q8H PRN (Reason: severe pain (scale score 7-10)) Qty: 15 0RF Rx Instructions: Partial Fill upon patient request. No Action bupropion HCl 150 mg tablet extended release 24 hr 150 mg PO QAM 90 Days Qty: 90 1RF atorvastatin 20 mg tablet 20 mg PO BEDTIME 90 Days Qty: 90 1RF cholecalciferol (vitamin D3) 50 mcg (2,000 unit) capsule 50 mcg PO DAILY Qty: 30 1RF fenofibrate 54 mg tablet 54 mg PO DAILY 90 Days Qty: 90 1RF sennosides [Natural Senna Laxative] 8.6 mg tablet 8.6 mg PO BEDTIME Qty: 90 3RF albuterol sulfate [Ventolin HFA] 90 mcg/actuation HFA aerosol inhaler 1 puff inhalation Q4H PRN (Reason: Shortness Of Breath Or Wheezing) hydroxyzine HCl 25 mg tablet 25 mg PO TID PRN (Reason: anxiety) 10 Days Qty: 30 1RF phentermine 15 mg capsule 15 mg PO DAILY 28 Days Qty: 28 0RF Rx Instructions: must administer 2 hours after breakfast Referrals: Manjinder Watkins MD [Physician] - (External hemorrhoid) Print Language: Slovak
--- OUTSIDE RECORDS SUMMARY | 2024-12-09 16:54 | XMS_ITS | Continuity of Care Document ---
Author Organization [facility] Address [address] [place] [address]- Care Team Providers Care Registered Nurse Post Partum Name Role Phone Austin Huffman MD, Dayana Maki Primary Care Physician Encounter [facility] Date(s): 11/08/24 - 12/08/24 [facility] [address] [place] [address]- Attending Physician: Admangel luis, [id number] Admitting Physician: AdmtrJose Referring Physician: Admtr, [id number] Encounter Type: Triage Allergies, Adverse Reactions, Alerts No Known Allergies Medications atorvastatin 20 mg oral tablet 1 tablet = 20 mg, By Mouth, Daily at bedtime, # 30 tablet, 0 Refills, Maintenance, 09/22/24 1:33:00 PM EST, Tablet, Partial fill upon patient request if the prescription is for a schedule II opioid drug. Start Date: 09/22/24 Status: Ordered Quantity: 30.0 Unit: tablet Repeat number: 1 fenofibrate 54 mg oral tablet By Mouth, Daily, 0 Refills, Maintenance, 09/22/24 1:24:00 PM EST, Partial fill upon patient request if the prescription is for a schedule II opioid drug. Start Date: 09/22/24 Status: Ordered Repeat number: 1 Senna-Time 8.6 mg oral tablet 1 tablet = 8.6 mg, By Mouth, Daily, 0 Refills, Maintenance, 09/22/24 1:32:00 PM EST, Partial fill upon patient request if the prescription is for a schedule II opioid drug. Start Date: 09/22/24 Status: Ordered Repeat number: 1 Vitamin D3 2000 intl units oral capsule 1 capsule = 50 mcg, By Mouth, Daily, # 60 capsule, 0 Refills, Maintenance, 09/22/24 1:27:00 PM EST, Capsule, Partial fill upon patient request if the prescription is for a schedule II opioid drug. Start Date: 09/22/24 Status: Ordered Quantity: 60.0 Unit: capsule Repeat number: 1 Wellbutrin = 150 mg, By Mouth, 0 Refills, Maintenance, 11/08/24 4:45:00 PM EDT, Partial fill upon patient request if the prescription is for a schedule II opioid drug. Start Date: 11/08/24 Status: Ordered Repeat number: 1 Problem List Condition Confirmation Course Effective Dates Status Health Status Informant GERD (gastroesophageal reflux disease) Confirmed Active Hypercholesterolemia Confirmed Active Prediabetes Confirmed Active Social History Social History Type Response Smoking Status Never (less than 100 in lifetime) entered on: 06/21/24 Sex Sex Representation Female (finding) Patient Care team information Care Team Personnel Name: Austin Huffman MD , Dayana Maki Position: Reference Physician Member Role: PCP Address: [address] [place] [address] [address] Telecom: Care Team Related Persons Name: BANDAR CARDONA Name: LUZMARIA WHITTAKER Name: CHARLEY DE LEON Insurance Providers Guarantor name: NAVEEN PLATA Health Plan Information #: 1 Payer: [facility] Member Number: NA Policy Number: NA Group Number: NA
[2024-12-09 17:06] LABS: Basophils Percent Auto 0.2 % (0-2); Eosinophils Absolute Auto 0.1 X10*3/uL (0.0-0.4); Eosinophils Percent Auto 0.5 % (0-4); Hematocrit 42.1 % (37.0-47.0); Hemoglobin 14.6 g/dl (12.0-16.0); Imm Gran Abs Auto 0.04 X10*3/uL (0.00-0.03); Imm Gran Pct Auto 0.4 % (0.0-0.4); Lymphocytes Absolute Auto 0.5 X10*3/uL (1.2-4.9); Lymphocytes Percent Auto 4.4 % (20-40); MANUAL DIFF FLAG SCAN; Mean Corpuscular HGB Conc 34.7 g/dl (31.0-35.0); Mean Corpuscular Hemoglobin 32.4 pg (27.0-33.0); Mean Corpuscular Volume 93.3 fL (80.0-98.0); Mean Platelet Volume 10.8 fL (9.4-12.3); Monocytes Absolute Auto 0.3 X10*3/uL (0.1-1.2); Monocytes Percent Auto 3.1 % (2-11); Neutrophils Absolute Auto 10.2 x10*3/uL (2.0-8.3); Neutrophils Percent Auto 91.4 % (45-73); Platelet Count 253 X10*3/uL (160-400); Red Blood Count 4.51 X10*6/uL (4.20-5.50); Red Cell Distribution Width 11.8 % (11.0-16.0); SCAN SMEAR FLAG 1; White Blood Count 11.1 X10*3/uL (4.8-10.8)
[2024-12-09 17:27] LABS: Alanine Aminotransferase 20 U/L (0-31); Albumin Level 4.2 g/dL (3.5-5.0); Anion Gap 13 (12-20); Aspartate Amino Transferase 27 U/L (5-31); Bilirubin Total 0.5 mg/dL (0.0-1.0); Blood Urea Nitrogen 13 mg/dL (9-16); Calcium 9.3 mg/dL (8.4-10.2); Carbon Dioxide 23 mmol/L (22-29); Chloride 107 mmol/L (96-108); Creatinine Clr Calc Pharmacy 83.2; Estimated Glomerular Filt Rate > 60; Glucose Random 95 mg/dL (60-115); Potassium 4.4 mmol/L (3.3-5.1); Sodium 139 mmol/L (135-145); Total Protein 7.3 g/dL (6.5-8.0)
[2024-12-09 17:47] LABS: SLIDE REVIEW VERIFIED
[2024-12-09 18:52] LABS: Alkaline Phosphatase 72 U/L (39-117)
[2024-12-09 19:41] VITALS: BP 137/70; PULSE 108; RESP 16; TEMP 36.8; O2SAT 100
[2024-12-09] MEDS: Acetaminophen 325 MG TABLET 650 MG PO (20:13)
--- NOTE | 2024-12-09 21:01 | PC.NURSE ---
20 G IV line placed to R AC for CT of abdomen and pelvis with IV contrast. Patient tolerated well.
[2024-12-09] MEDS: iohexoL 350 MG/ML 100 ML INFUS..BTL 85 ML IV (21:24)
--- NOTE | 2024-12-09 21:26 | PC.NURSE ---
CT completed, patient is back to her room.
--- NOTE | 2024-12-09 22:33 | P.CONGS_ITS ---
History of Present Illness Consult details Consult date: 12/09/24 Narrative: 54-year-old female presenting with complaints of perirectal pain, swelling as well as abdominal discomfort. The perirectal pain began approximately 2 days ago preceding the abdominal pain by 1 day. She felt increased pain today while at a restaurant which was so severe that she needed to leave. She denies a previous history of similar problems. She recently underwent a hysterectomy in September but denies any problems following the surgery. Review of Systems 2 Review of Systems: Yes all other systems are reviewed and are negative [facility] Past Medical History Medical History Obesity, Class I, BMI 30-34.9 Fibromyalgia Immunization due Physical exam Hypovitaminosis D GERD (gastroesophageal reflux disease) Mixed hyperlipidemia Leukopenia Abdominal pain Anxiety and depression Constipation Skin lesion Family History Family History Father Stroke Mother Diabetes Hypertension Depression Maternal Aunt Diabetes Daughter Diabetes Surgical History Surgical History Hx of colonoscopy History of dilatation and curettage Social History Social History (Updated 11/23/24 @ 12:02 by Manjit Zavala PA-C) Household Members: None Housing: House Alcohol intake: current Alcohol intake frequency: holidays/special occasions only Alcohol type: wine Patient Tobacco Use Status: Never used Tobacco Smoked in Last 30 Days: No e-Cigarette/Vaping Use: Never Used Second Hand Smoke Exposure: No Use of substances other than those prescribed or required for medical reasons: No Advance Directives: No Advance Directives Information Provided: Yes Patient : No service: No Current occupational status: employed 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 occupational exposures/hazards: No Sexual orientation: Straight/Heterosexual Gender identity: Female Cognitive needs: No Hearing needs: No Vision needs: Yes Meds Allergies Allergy/AdvReac Type Severity Reaction Status Date / Time diphtheria,pertussis Allergy Intermediate Swelling Verified 12/09/24 16:33 (acellular),te [From Adacel(Tdap Adolesn/Adult)(PF)] metronidazole [Flagyl] Allergy Intermediate itching Verified 12/09/24 16:33 Home Medications ?Medication ?Instructions ?Recorded ?Confirmed ?Last Taken ?Type albuterol sulfate 90 mcg/actuation 1 puff inhalation Q4H PRN 12/01/23 11/23/24 Unknown History aerosol inhaler (Ventolin HFA) Shortness Of Breath Or Wheezing Physical Exam 2 Vital Signs: Vital Signs: Last Vital Signs Temp 98.3 F 12/09/24 19:41 Pulse 108 H 12/09/24 19:41 Resp 16 12/09/24 19:41 BP 137/70 12/09/24 19:41 Pulse Ox 100 12/09/24 19:41 O2 Del Method Room Air 12/09/24 19:41 BMI result Body Mass Index 24.1 Const: General: cooperative and no acute distress Nutritional Appearance: w ell nourished Orientation/consciousness: patient oriented x3 Limitations: no limitations HEENT: Head: Yes normocephalic and Yes atraumatic Ears: hearing grossly normal bilaterally Resp: Effort & Inspection: normal respiratory effort, no audible wheezes, no cough and no respiratory distress Cardio: Jugular venous distension: no JVD GI: Inspection: Yes normal to inspection Back/Spine/Pelvis: Other: Rectal examination: No evidence of rectal prolapse, perirectal abscess, anal fistula. Thrombosed hemorrhoid is identified in the left perianal wall which is tender to palpation. Skin: Other: Warm, dry, no rash Neuro: General: patient oriented x3 Extrem: General: Yes no clubbing, cyanosis or edema Results Labs 12/09/24 16:53 12/09/24 16:53 Labs: Abnormal lab results 12/09/24 Range/Units 16:53 WBC 11.1 H (4.8-10.8) X10*3/uL Neut % (Auto) 91.4 H (45-73) % Lymph % (Auto) 4.4 L (20-40) % Lymph # (Auto) 0.5 L (1.2-4.9) X10*3/uL Abs Immat Gran (auto) 0.04 H (0.00-0.03) X10*3/uL Absolute Neuts (auto) 10.2 H (2.0-8.3) x10*3/uL Short CBC 12/09/24 Range/Units 16:53 WBC 11.1 H (4.8-10.8) X10*3/uL Hgb 14.6 (12.0-16.0) g/dl Hct 42.1 (37.0-47.0) % Plt Count 253 (160-400) X10*3/uL BMP 12/09/24 16:53 Sodium 139 Potassium 4.4 Chloride 107 Carbon Dioxide 23 BUN 13 Creatinine 0.74 Calcium 9.3 D Liver Function 12/09/24 Range/Units 16:53 Total Bilirubin 0.5 (0.0-1.0) mg/dL AST 27 (5-31) U/L ALT 20 (0-31) U/L Alkaline Phosphatase 72 (39-117) U/L Albumin 4.2 (3.5-5.0) g/dL All other labs normal. Assessment and Plan (1) External hemorrhoid, thrombosed: Status: Acute Plan 54-year-old female patient presenting with a thrombosed external hemorrhoid. An excision of the thrombosis was performed at the bedside this evening and the patient tolerated well. I recommended warm soaks 4 times daily. She should keep a gauze dressing over the hemorrhoid. I recommended she follow up my office in approximately 1 week. She should avoid any strenuous activity for the next week. Procedures Date of Service Date of Service: 12/09/24 Abscess I/D Consent for Procedure: Elective - informed consent obtained Site: katarzyna-rectal Side (if applicable): left Sedation/analgesia: none Anesthetic used: with epi Technique: incised with #11 blade Irrigation: No Packing used?: none Additional comments: Incision of a thrombosed external hemorrhoid performed with local anesthesia. Three large clots were removed. Patient tolerated this well.
[2024-12-09 22:40] VITALS: BP 116/65; PULSE 106; RESP 16; TEMP 36.6; O2SAT 97
[2024-12-09 23:19] VITALS: BP 116/65; PULSE 106; RESP 16; TEMP 36.6; O2SAT 97
== END 2024-12-09 23:20 | disposition home or self-care (01) ==
PROVIDERS: Physician Assistant Medical; Emergency Provider Emergency Medicine; PCP Physician Assistant
DX: K64.5 Perianal venous thrombosis (principal); R11.0 Nausea; R42 Dizziness and giddiness; K59.00 Constipation, unspecified; F41.9 Anxiety disorder, unspecified; R10.2 Pelvic and perineal pain; Z79.899 Other long term (current) drug therapy
CPT/HCPCS: 36415; 74177; 80053; 85025; 99284; Q9967

== ENCOUNTER → 2024-12-09 16:49 | Outpatient (BNV) | payer OTHER, SELFPAY | PROVIDERS: Emergency Provider Emergency Medicine; PCP Physician Assistant; Visit Provider Surgery | DX: K64.5 Perianal venous thrombosis (principal) | CPT/HCPCS: 46083; 99283 ==

== ENCOUNTER → 2024-12-09 20:51 | Outpatient (BNV) | payer OTHER, SELFPAY | PROVIDERS: Emergency Provider Emergency Medicine; PCP Physician Assistant; Visit Provider Radiology Diagnostic Radiology | DX: R93.5 Abnormal findings on diagnostic imaging of other abdominal regions, including retroperitoneum (principal) | CPT/HCPCS: 74177 ==

== ENCOUNTER 2024-12-16 07:11 | Outpatient (REF) | payer OTHER, SELFPAY ==
[2024-12-16 07:43] LABS: Estimated Average Glucose 105 mg/dL; Hemoglobin A1C 124.5737 umol/L; Hemoglobin A1c % 5.3 % (<6.0)
[2024-12-16 07:57] LABS: Hematocrit 40.7 % (37.0-47.0); Hemoglobin 13.6 g/dl (12.0-16.0); Mean Corpuscular HGB Conc 33.4 g/dl (31.0-35.0); Mean Corpuscular Hemoglobin 31.6 pg (27.0-33.0); Mean Corpuscular Volume 94.4 fL (80.0-98.0); Mean Platelet Volume 11.1 fL (9.4-12.3); Platelet Count 285 X10*3/uL (160-400); Red Blood Count 4.31 X10*6/uL (4.20-5.50); Red Cell Distribution Width 11.8 % (11.0-16.0); White Blood Count 6.7 X10*3/uL (4.8-10.8)
[2024-12-16 08:04] LABS: Alanine Aminotransferase 26 U/L (0-31); Albumin Level 3.9 g/dL (3.5-5.0); Alkaline Phosphatase 65 U/L (39-117); Anion Gap 9 (12-20); Aspartate Amino Transferase 24 U/L (5-31); Bilirubin Total 0.3 mg/dL (0.0-1.0); Blood Urea Nitrogen 12 mg/dL (9-16); Calcium 9.2 mg/dL (8.4-10.2); Carbon Dioxide 27 mmol/L (22-29); Chloride 107 mmol/L (96-108); Cholesterol 137 mg/dL (<200); Estimated Glomerular Filt Rate > 60; Glucose Fasting 106 mg/dL (60-99); HDL Cholesterol 38 mg/dL (>40); LDL Cholesterol Calculated 83 mg/dL (<100); Potassium 4.3 mmol/L (3.3-5.1); Sodium 139 mmol/L (135-145); Total Protein 6.8 g/dL (6.5-8.0); Triglycerides 80 mg/dL (<150)
[2024-12-17 07:03] LABS: Follicle Stimulating Hormone 72.5 mIU/mL
[2024-12-22 16:52] LABS: Estrogen 81 pg/mL
[2024-12-29 19:24] LABS: Progesterone <0.1 ng/mL
== END 2024-12-16 07:12 | disposition home or self-care (01) ==
LOC: HO.LAB 07:11
PROVIDERS: PCP Physician Assistant; Visit Provider Physician Assistant
DX: R73.02 Impaired glucose tolerance (oral) (principal); Z90.710 Acquired absence of both cervix and uterus; E78.2 Mixed hyperlipidemia
CPT/HCPCS: 36415; 80053; 80061; 82672; 83001; 83036; 84144; 85027

== ENCOUNTER 2024-12-27 15:09 | Outpatient (AMB) | payer OTHER, SELFPAY ==
[2024-12-27 15:29] VITALS: BP 120/76; PULSE 78; TEMP 36.2; O2SAT 100; BMI 28.6
--- NOTE | 2024-12-27 15:29 | A.OFFPC_ITS ---
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: No Accompanied by: Self / Same As Patient Allergies diphtheria,pertussis (acellular),te [From Adacel(Tdap Adolesn/Adult)(PF)] Allergy (Intermediate, Verified 12/27/24 15:35) Swelling metronidazole [Flagyl] Allergy (Intermediate, Verified 12/27/24 15:35) itching Medication List - Last Reconciled 12/27/24 by Manjit Zavala PA-C albuterol sulfate 90 mcg/actuation (Ventolin HFA) 1 puff inhalation Q4H PRN atorvastatin 20 mg PO BEDTIME 90 days bupropion HCl XL 150 mg PO QAM 90 days cholecalciferol (vitamin D3) 50 mcg PO DAILY fenofibrate 54 mg PO DAILY 90 days hydroxyzine HCl 25 mg PO TID PRN 10 days oxycodone 5 mg PO Q8H PRN phentermine 15 mg PO DAILY 28 days sennosides (Natural Senna Laxative) 8.6 mg PO BEDTIME Tobacco use date assessed: 11/23/24 Dental Screening Dental Screen Date: 11/23/24 HPI f/u weight check HPI Details Patient is a 54-year-old female here today for a follow-up visit. Patient has a past medical history significant for anxiety, hyperlipidemia,. Glucose metabolism, asthma. .. BMI 28: Has been able to lose significant amount of weight due to being more physically active and changing eating habits. Her BMI is now 28. For weight management, phentermine was prescribed. Although the patient initially hesitated and postponed starting the medication, she later reports minimal appetite without notable side effects. However, her fear of increasing dosage remains due to her cautious nature about medication interventions .. Menopause: SHe reports experiencing multiple symptoms consistent with menopause, including hot flashes, night sweats, and sleep disturbances while expressing concerns about aging and hormone levels. Blood tests confirm menopause diagnosis, showing FSH at 72, indicating post-menopausal stage, despite retaining her ovaries after hysterectomy. .. Hyperlipidemia: Most recent lipid panel much improved total cholesterol and LDL and triglycerides. PLAN: Will hold off on fenofibrate and continue statin therapy. Will recheck fasting lipid panel in 3 months .. Asthma: Patient followed by [facility]. She continues with a maintenance inhaler . . Major depressive disorder: The psychiatric history is marked by depression and anxiety, significantly exacerbated by personal life events. The patient is engaged in counseling services and highlights the need for potential medication management during intense depressive episodes, even as she expresses general reluctance towards medication use. She is currently using Wellbutrin. She has used hydroxyzine for her anxiety PRN. Laboratory Tests 10/02/21 04/05/24 12/16/24 14:00 06:54 07:18 Hgb 13.6 Fasting Glucose 106 H Hemoglobin A1c % 5.3 Triglycerides 278 H Cholesterol 246 H 137 LDL Cholesterol, C alc 154 H Estrogen 81 FSH 72.5 Stool Pancreat Shanna stase >500 PFSH Medical History (Updated 12/28/24 @ 08:11 by Manjit Zavala PA-C) Obesity, Class I, BMI 30-34.9 Fibromyalgia Immunization due Physical exam Hypovitaminosis D GERD (gastroesophageal reflux disease) Mixed hyperlipidemia Leukopenia Constipation Skin lesion Surgical History Hx of colonoscopy History of dilatation and curettage Family History Father Stroke Mother Diabetes Hypertension Depression Maternal Aunt Diabetes Daughter Diabetes Social History (Updated 11/23/24 @ 12:02 by Manjit Zavala PA-C) Household Members: None Housing: House Alcohol intake: current Alcohol intake frequency: holidays/special occasions only Alcohol type: wine Patient Tobacco Use Status: Never used Tobacco e-Cigarette/Vaping Use: Never Used Second Hand Smoke Exposure: No service: No Current occupational status: employed 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 1. Little interest or pleasure in doing things: not at all 2. Feeling down, depressed, or hopeless: not at all 3. Trouble falling or staying asleep, or sleeping too much: several days 4. Feeling tired or having little energy: not at all 5. Poor appetite or overeating: not at all 6. Feeling bad about yourself - or that you are a failure or have let yourself or your family down: not at all 7. Trouble concentrating on things, such as reading the newspaper or watching television: not at all 8. Moving or speaking so slowly that other people could have noticed. Or the opposite - being so fidgety or restless that you have been moving around a lot more than usual: not at all 9. Thoughts that you would be better off or of hurting yourself in some way: not at all Total score: 1 Depression Screening Interpretation: Negative Depression Screening Done: Yes 66230 - PHQ-9 Billing: Yes Source: Developed by Drs. Best Delarosa, Shannan Steve, Sergio Haile and colleagues, with an educational kristal from [employer]. Thrive Questionnaire Date Thrive assessed: 05/09/24 I am a: Patient What is your living situation today?: I have a steady place to live Within the past 12 months, did the food you bought not last and you didn't have the money to get more?: Never true Within the past 12 months, did you worry whether your food would run out before you got money to buy more?: Never true Do you have trouble paying for medicines?: No Do you have trouble getting transportation to medical appointments?: No Do you have trouble paying your heating and electricity bill?: No Do you have trouble taking care of your child, family member or friend?: No Do you have trouble with day-to-day activities such as bathing, preparing meals, shopping, managing finances, etc.?: No Are you currently unemployed and looking for a job?: No Are you interested in more education?: No Please select the resources that you would like help with: None Currently or been in a relationship where the following occur: No concerns reported THRIVE Score: 0 AUDIT C Alcohol Use Questionnaire (AUDIT-C) 1. How often do you have a drink containing alcohol?: 2-3 times a week 2. How many drinks containing alcohol do you have on a typical day when you are drinking?: 1 or 2 3. How often do you have six or more drinks on one occasion?: Never Total Score: 3 FATIMAH-7 AMB Questionnaire FATIMAH-7 Date FATIMAH - 7 assessed: 05/09/24 Feeling nervous, anxious, or on edge: 0 = Not at all Not being able to stop or control worryin = Not at all Worrying too much about different things: 0 = Not at all Trouble relaxin = Not at all Being so restless that it is hard to sit still: 0 = Not at all Becoming easily annoyed or irritable: 0 = Not at all Feeling afraid as if something awful might happen: 0 = Not at all Total FATIMAH-7 score (0-4 normal; 5-9 mild; 10-14 moderate; 15-21 severe): 0 Source: Developed by Drs. Best Delarosa, Shannan Steve, Sergio Haile and colleagues, with an educational kristal from [employer]. FATIMAH-7 Assessment Billing FATIMAH-7 Assessment Tool: FATIMAH-7 Assessment 11683 Review of Systems Const Denies headache(s) Eyes Denies loss of vision ENT Denies vertigo, Denies dizziness, Denies headache(s) and Denies sore throat Card Denies chest pain, Denies leg edema and Denies lightheadedness Resp Denies cough, Denies hemoptysis and Denies wheezing GI Denies abdominal pain, Denies melena, Denies constipation, Denies diarrhea and Denies vomiting Denies urinary frequency, Denies dysuria and Denies urinary urgency Musc Denies arthralgias, Denies joint swelling, Denies numbness and Denies tingling Neuro Denies Abnormal speech present, Denies behavioral changes, Denies vertigo, Denies dizziness, Denies headache(s), Denies loss of vision, Denies memory loss, Denies numbness and Denies tingling Psych Denies anxiety, Denies behavioral changes, Denies depression, Denies memory loss and Denies panic attacks Casye/Lymph Denies easy bleeding and Denies easy bruising Aller/Immun Denies wheezing Physical exam (Primary Care) Vital Signs: Last Vital Signs Temp 97.1 F 12/27/24 15:29 Pulse 78 12/27/24 15:29 BP 120/76 12/27/24 15:29 Pulse Ox 100 12/27/24 15:29 Oxygen Delivery Method Room Air 12/27/24 15:29 BMI result Body Mass Index 28.6 Tobacco/Smoking Status: Tobacco use Status Tobacco use date assessed 11/23/24 12/27/24 15:30 Patient Tobacco Use Status Never used Tobacco 12/27/24 15:30 e-Cigarette/Vaping Use Never Used 12/27/24 15:30 PHQ-9: PHQ-9 Score PHQ-9: Total score 1 12/27/24 15:37 Depression Screening Interpretation: Negative Thrive Assessment: Date of Thrive Assessment Date Thrive assessed 05/09/24 12/27/24 15:30 Currently or been in a relationship where the following occur: No concerns reported Const General: healthy appearing, no acute distress, alert and awake Nutritional Appearance: well nourished Orientation/consciousness: oriented to person, oriented to place and oriented to time HENMT Ears: TM's normal bilaterally General nose exam: Normal nasal mucous membranes and turbinates present Eyes Conjunctivae: conjunctivae normal Sclerae: sclerae normal Pupils: Equal, round and reactive pupils present Neck Neck: Yes no lymphadenopathy and Yes no JVD Thyroid: Thyroid normal Carotids: no bruits Resp Effort & Inspection: normal respiratory effort and not tachypneic Auscultation: no crackles, no rales, no rhonchi and no wheezes Cardio Rate: regular rate Rhythm: regular rhythm Heart sounds: no murmurs and normal S1 and S2 GI Palpation (GI): Soft to palpation, nontender, no hepatomegaly and no splenomegaly Auscultation: normal bowel sounds Skin General skin exam: no rashes or lesions noted and dry skin Neuro General: oriented to person, oriented to place and oriented to time Cranial nerves: Yes Equal, round and reactive pupils present Speech: No Abnormal speech present Gait exam (Neuro): Normal gait present Motor exam (neuro): no tremor noted Extrem Right upper extremity: full ROM Left upper extremity: full ROM Right lower extremity: full ROM; no edema Left lower extremity: full ROM; no edema Psych Mental Status: mental status grossly normal Speech and movement: Normal speech and movement present Affect: normal affect Attitude: cooperative Thought process: Normal thought process present Coding Level of Care Code Est Pt Level 4 (49616) Diagnoses Impaired glucose metabolism R73.09 Mixed hyperlipidemia E78.2 BMI 28.0-28.9,adult Z68.28 Mild major depression F32.0 Additional Codes PHQ-9 - 67738 - PHQ-9 Billing: Yes ([id number]) FATIMAH-7 Assessment Billing - FATIMAH-7 Assessment Tool: FATIMAH-7 Assessment 65703 ([id number]) Assessment & Plan Assessment & Plan (1) Impaired glucose metabolism: Code(s): R73.09 - Other abnormal glucose Category: Medical Plan: Patient has a history of impaired glucose metabolism. Has made lifestyle and dietary modifications in his lost weight. Now BMI at 28. Most recent A1c at 5.3. Will continue working on being more physically active (2) Mixed hyperlipidemia: Code(s): E78.2 - Mixed hyperlipidemia Category: Medical Plan: Most recent lipid panel showing excellent control over total cholesterol LDL and triglycerides. Will hold off on fenofibrate and recheck lipids in 3 months to evaluate the need for fenofibrate medication. (3) BMI 28.0-28.9,adult: Code(s): Z68.28 - Body mass index [BMI] 28.0-28.9, adult Category: Medical Plan: Has lost weight since starting phentermine. He she would like to try higher dose of phentermine 30 mg for the next month. (4) Mild major depression: Code(s): F32.0 - Major depressive disorder, single episode, mild Category: Medical Plan: Patient's PHQ-9 score 1, does have a history of depression. Continues on Wellbutrin with good effect on mood. Orders: Orders Hemoglobin A1c 12/27/24 R73.09 - Other abnormal glucose Lipid Panel 12/27/24 E78.2 - Mixed hyperlipidemia Comprehensive Luke. Panel Fast 12/27/24 R73.09 - Other abnormal glucose Medications: New phentermine must administer 2 hours after breakfast 30 mg PO DAILY 28 caps 0RF 28 days Z68.29 - Body mass index [BMI] 29.0-29.9, adult Changed From cholecalciferol (vitamin D3) 50 mcg PO DAILY 30 caps 1RF Z68.29 - Body mass index [BMI] 29.0-29.9, adult To cholecalciferol (vitamin D3) 50 mcg PO DAILY 90 caps 1RF 90 days Z68.29 - Body mass index [BMI] 29.0-29.9, adult Discontinued phentermine must administer 2 hours after breakfast Discontinued Reason: Doctor's Order 15 mg PO DAILY 28 days 28 caps 0RF E66.9 - Obesity, unspecified On Hold fenofibrate Hold Comment: Doctor's Order 54 mg PO DAILY 90 days 90 tabs 1RF
--- OUTSIDE RECORDS SUMMARY | 2024-12-27 16:21 | XMS_ITS | Data Portability ---
Author Organization [place] [facility] Address [address] [place] [id number] Care Team Providers Care Promotional Marketing Analyst Name Role Phone YUNG LINCOLN Primary Care [...] better spirits and walked team to door. [email or web address] Not available 09/28/2021 16:33:54 Plan of Treatment Reminders Order Date Submit Date Provider Last Modified By Organization Details Last Modified Time Details Appointments None recorded. Lab amylase, serum or plasma 2021 GIANLUCA [facility] (Centralized Electronic Ordering - All Locations), Patient Can Go To The Location Of Their Choice, [id number] 16:04:41 lipase, serum or plasma 2021 GIANLUCA [facility] (Centralized Electronic Ordering - All Locations), Patient Can Go To The Location Of Their Choice, [address] 16:04:47 BMP + ionized calcium, serum or plasma 2021 GIANLUCA [facility], [address] [place] [address], [phone], 13:28:25 Referral None recorded. Procedures None recorded. Surgeries None recorded. Imaging None recorded. Medication Orders sodium chloride 0.9 % intravenous solution 2021 [email or web address] Not available 12:20:36 Zofran 2 mg/mL intravenous solution 2021 [email or web address] Not available 12:20:37 Patient TargetsNo targets recorded. Patient Instructions Encounter Date Encounter Id Patient Instructions Last Modified By Organization Details Last Modified Time 09/28/2021 [id number] pancreatitis: ca re instructions [email or web address] [id number] Not available 09/28/2021 11:09:10 diet for chronic pancreatitis: care instructions [id number] Not available 09/28/2021 11:09:16 learning about a cute pancreatitis [email or web address] [id number] Not available 09/28/2021 11:09:15 [facility], vomiting, diarrhea, and [...] disease, do not use Tylenol. Ask your KE[employer]UNCH OPERATORS SUPERVISOR how to address fever if you are concerned about Tylenol use. 3) Anti-diarrheal medicines: These are available [id number], but in some cases are not recommended and can even worsen some cases of intestinal problems. Ask your KE[employer] SUPERVISOR if you should use them. In children [...] with one of the PCP suggestions from [facility]. SEEK CARE IMMEDIATELY IF: 1) You are [...] in your condition between 8am-10pm, please call [facility] at [phone] to help navigate your care. Thank you for your visit with [facility] today. You were seen today for abdominal [...] condition between 8am-10pm, please call [facility] at [phone] to help navigate your care. [email or web address] [id number] Not available 09/28/2021 12:51:20 Reason for Referral None Reported. Results Created Date Observation Date Name Description Value Unit Range Abnormal Flag Note LastModifiedBy Organization Detail LastModifiedTime 09/28/19 22 09/28/2021 AMYLA SE amylase 44 U/L (28-10 0) Not Available [facility] (Centralized Electronic Ordering - All Locations) Patient Can Go To The Location Of Their Choice, [id number] 09/28/2021 16:04:40 09/28/19 22 09/28/2021 LIPAS E lipase 14 U/L (13-60 ) Not Available [facility] (Centralized Electronic Ordering - All Locations) Patient Can Go To The Location Of Their Choice, [id number] 09/28/2021 16:04:47 09/28/19 22 09/28/2021 BMP + IONIZ ED CALCI UM, SERUM OR PLASM A glu 121 mg/dL 70-105 Not Available [id number] [place], [address], 09/28/2021 13:28:25 09/28/19 22 09/28/2021 BMP + IONIZ ED CALCI UM, SERUM OR PLASM A BUN 10 mg/dL 8-26 Not Available [facility] [address] [place], [address], 09/28/2021 13:28:25 09/28/19 22 09/28/2021 BMP + IONIZ ED CALCI UM, SERUM OR PLASM A crea 0.7 mg/dL 0.6-1. 3 Not Available [facility] [address] [place], [address], 09/28/2021 13:28:25 09/28/19 22 09/28/2021 BMP + IONIZ ED CALCI UM, SERUM OR PLASM A Na 139 mmol/ L 138-14 6 Not Available [address], [address], 09/28/2021 13:28:25 09/28/19 22 09/28/2021 BMP + IONIZ ED CALCI UM, SERUM OR PLASM A K 4.5 mmol/ L 3.5-4. 9 Not Available [address], [address], 09/28/2021 13:28:25 09/28/19 22 09/28/2021 BMP + IONIZ ED CALCI UM, SERUM OR PLASM A cL 103 mmol/ L 98-109 Not Available [address], [address], 09/28/2021 13:28:25 09/28/19 22 09/28/2021 BMP + IONIZ ED CALCI UM, SERUM OR PLASM A TCO2 24 mmol/ L 24-29 Not Available [address], [address], 09/28/2021 13:28:25 09/28/19 22 09/28/2021 BMP + IONIZ ED CALCI UM, SERUM OR PLASM A angap 17 mmol/ L 10-20 Not Available [address], [address], 09/28/2021 13:28:25 09/28/19 22 09/28/2021 BMP + IONIZ ED CALCI UM, SERUM OR PLASM A ica 1.12 mmol/ L 1.12-1 .32 Not Available [address], [address], 09/28/2021 13:28:25 09/28/19 22 09/28/2021 BMP + IONIZ ED CALCI UM, SERUM OR PLASM A HCT 46 %pcv 38-51 Not Available [address] [place], [address], 09/28/2021 13:28:25 09/28/19 22 09/28/2021 BMP + IONIZ ED CALCI UM, SERUM OR PLASM A Hb 15.6 g/dL 12-17 Not Available [facility] [address] [place], [address], 09/28/2021 13:28:25 Result Notes None recorded. Procedures Surgical History Date Name Laterality Status Provider Name and Address Organization Details Recorded Time IV Start Procedure - completed February Nate, KRISTA [address] [facility], [place], [address], [place] [facility] 09/28/2021 14:36:32 Imaging Results [...] DIRECTED BY [facility]OLOGY DEPARTME NT AT [facility] active Not Available Not Available No [...] /min 130 mm[Hg] 86 mm[Hg] Not Available [facility] 11:03:48 Social History Question Answer Notes LastModified by Organizat ion Details LastModified Time Tobacco Smoking Status Never Smoker February Nate, KRISTA [address], [place], [address], [place] [facility] 09/28/2021 11:56:21 Do You Have An Advance Directive? No [email or web address] Information not available 09/28/2021 What Is Your Level Of Alcohol Consumption? Moderate [email or web address] Information not available 09/28/2021 What Is Your Code Status? Full Code [email or web address] Information not available 09/28/2021 Within The Past 12 Months, Has It Happened That The Food You Bought Just Didn't Last And You Didn't Have Money To Get More. No [email or web address] Information not available 09/28/2021 Within The Past 12 Months, Have You Worried That Your Food Would Run Out Before You Got Money To Buy More. No [email or web address] Information not available 09/28/2021 Fall Risk: Do You Feel Unsteady When Standing Or Walking? No [email or web address] Information not available 09/28/2021 Excessive Alcohol Or Drug Use No [email or web address] Information not available 09/28/2021 Does This Patient Have A PCP? Yes [email or web address] Information not available 09/28/2021 Would You Like Help Connecting To Resources? None [email or web address] Information not available 09/28/2021 Do You Use Any Illicit Or Recreational Drugs? No [email or web address] Information not available 09/28/2021 Sex: Unknown Functional Status None recorded. Mental Status None recorded. Family History Relationship Description Onset Age of this Age Resolved Age Notes LastModified by Organization Details LastModified Time Father No current problems or disability [email or web address] Not available 0 09/28/2021 11:54:06 Mother No current problems or disability [email or web address] Not available 0 09/28/2021 11:54:06 Mother Diabetes mellitus [email or web address] Not available 11:54:38 Mother Hypertensive disorder [email or web address] Not available 11:54:53 Medical History No medical history recorded. Gynecological HistoryNo gynecological history recorded. Obstetrics History GPAL:G 0 P 0 0 0 0 Past Encounters Encounter ID Performer Location Encounter Start Date Encounter Closed Date Diagnosis/Indication Diagnosis SNOMED-CT Code Diagnosis ICD10 Code Diagnosis Note [id number] February KRISTA Sullivan [facility] [address] [place] [address] 09/28/2021 10:44:50 09/30/2021 12:03:39 Pancreatitis 10539789 K85.90 Nausea, vo miting and diarrhea 0214847 R11.2 Abdominal pain [id number] R10.9 Health Concerns Section Related Observation LastModified by Organization Detai ls LastModified Time None Recorded Concern Status LastModified by Organization Details LastModified Time None Recorded Advance Directives Directive N: Payers Encounter Date Sequence Insurance Name Policy Number Policy Gee Covered Member ID Gee Member ID Guarantor Name 09/28/2021 1 [facility] NET PLAN (MEDICAID HMO) [id number] Amarilis Gerber [id number] Amarilis Gerber Notes Date Note Type Note [...] Influenza. February KRISTA Sullivan [address], [place], [address], [place] [facility] 10/01/2021 01:49:43 OBGyn Episode No OBEpisode recorded.
== END 2024-12-27 16:05 | disposition home or self-care (01) ==
LOC: HO.HMCH 15:11
PROVIDERS: PCP Physician Assistant; Visit Provider Physician Assistant
DX: R73.09 Other abnormal glucose (principal); E78.2 Mixed hyperlipidemia; Z68.28 Body mass index [BMI] 28.0-28.9, adult; F32.0 Major depressive disorder, single episode, mild

== ENCOUNTER → 2024-12-27 15:09 | Outpatient (BNVA) | payer OTHER, SELFPAY | PROVIDERS: PCP Physician Assistant; Visit Provider Physician Assistant | DX: R73.09 Other abnormal glucose (principal); E78.2 Mixed hyperlipidemia; F32.0 Major depressive disorder, single episode, mild; J45.909 Unspecified asthma, uncomplicated | CPT/HCPCS: 96127 ==

== ENCOUNTER 2025-01-03 15:23 | Outpatient (AMB) | payer OTHER, SELFPAY ==
--- NOTE | 2025-01-03 15:28 | MHC.OFFVIS ---
Vital Signs 01/03/25 15:39 Height 5 ft 1 in Weight 150 lb 4 oz BMI 28.4 BP 156/73 H Blood Pressure Location Lt brachial Position Sitting Pulse 87 Intake Visit Reasons: thrombosed external hemorrhoids Intake Note: Patient is seen in office for ER follow up visit, thrombosed external hemorrhoids. 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 Required: No Accompanied by: Self / Same As Patient Allergies diphtheria,pertussis (acellular),te [From Adacel(Tdap Adolesn/Adult)(PF)] Allergy (Intermediate, Verified 01/03/25 15:36) Swelling metronidazole [Flagyl] Allergy (Intermediate, Verified 01/03/25 15:36) itching Medication List - Last Reconciled 01/05/25 by Mnajinder Watkins MD albuterol sulfate 90 mcg/actuation (Ventolin HFA) 1 puff inhalation Q4H PRN atorvastatin 20 mg PO BEDTIME 90 days bupropion HCl XL 150 mg PO QAM 90 days cholecalciferol (vitamin D3) 50 mcg PO DAILY 90 days fenofibrate 54 mg PO DAILY 90 days hydroxyzine HCl 25 mg PO TID PRN 10 days oxycodone 5 mg PO Q8H PRN phentermine 37.5 mg PO DAILY 28 days sennosides (Natural Senna Laxative) 8.6 mg PO BEDTIME HPI Comments Details: 54-year-old female patient presenting initially in the emergency department with complaints of perirectal pain on 12/09/2024. The patient was found to have a thrombosed external hemorrhoid and subsequently underwent incision and drainage of this thrombosed hemorrhoid in the emergency department. She returns today for wound check. She initially had a period of increased pain following the procedure but now feels much improved and denies any pain, lump, bleeding or discharge. She denies any difficulties with her bowels. [facility] Medical History Obesity, Class I, BMI 30-34.9 Fibromyalgia Immunization due Physical exam Hypovitaminosis D GERD (gastroesophageal reflux disease) Mixed hyperlipidemia Leukopenia Constipation Skin lesion Surgical History Hx of colonoscopy History of dilatation and curettage Family History Father Stroke Mother Diabetes Hypertension Depression Maternal Aunt Diabetes Daughter Diabetes Social History Household Members: None Housing: House Alcohol intake: current Alcohol intake frequency: holidays/special occasions only Alcohol type: wine Patient Tobacco Use Status: Never used Tobacco e-Cigarette/Vaping Use: Never Used Second Hand Smoke Exposure: No service: No Current occupational status: employed 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 occupational exposures/hazards: No Sexual orientation: Straight/Heterosexual Gender identity: Female Cognitive needs: No Hearing needs: No Vision needs: Yes Review of Systems Const All systems reviewed & are unremarkable except as noted in HPI and below Physical Exam Vital Signs: Last Vital Signs Pulse 87 01/03/25 15:39 BP 156/73 H 01/03/25 15:39 BMI result Body Mass Index 28.4 Const General: comfortable Nutritional Appearance: well nourished Orientation/consciousness: patient oriented x3 Resp Effort & Inspection: normal respiratory effort, no audible wheezes, no cough and no respiratory distress GI Other: Soft, nondistended, nontender. Back/Spine/Pelvis Other: Anorectal examination: Exam deferred Neuro General: patient oriented x3 Extrem General: No edema Assessment & Plan Assessment & Plan (1) External hemorrhoid, thrombosed: Code(s): K64.5 - Perianal venous thrombosis Category: Medical Plan 54-year-old female patient with a recent history of thrombosed external hemorrhoids status post drainage in the emergency department. She feels much improved today with no further rectal pain or bleeding. Bowels have returned to normal as well. No further surgical intervention is required at this time. She should follow up as needed. I recommended she stay on a stool softener and avoid straining for a bowel movement. She expressed understanding and agrees with the plan. Coding Level of Care Code Est Pt Level 3 (84595) Diagnoses External hemorrhoid, thrombosed K64.5
[2025-01-03 15:39] VITALS: BP 156/73; PULSE 87; BMI 28.4
--- OUTSIDE RECORDS SUMMARY | 2025-01-03 16:14 | XMS_ITS | Data Portability ---
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 [email or web address] Not available 09/28/2021 16:33:54 Plan of Treatment Reminders Order Date Submit Date Provider Last Modified By Organization Details Last Modified Time Details Appointments None recorded. Lab amylase, serum or plasma 2021 GIANLUCA [facility] (Centralized Electronic Ordering - All Locations), Patient Can Go To The Location Of Their Choice, [id number] 16:04:41 lipase, serum or plasma 2021 GIANLUCA [facility] (Centralized Electronic Ordering - All Locations), Patient Can Go To The Location Of Their Choice, [id number] 16:04:47 BMP + ionized calcium, serum or plasma 2021 GIANLUCA [facility], [address] [place] [address], [id number], 13:28:25 Referral None recorded. Procedures None recorded. Surgeries None recorded. Imaging None recorded. Medication Orders sodium chloride 0.9 % intravenous solution 2021 [email or web address] Not available 12:20:36 Zofran 2 mg/mL intravenous solution 2021 [email or web address] Not available 12:20:37 Patient TargetsNo targets recorded. Patient Instructions Encounter Date Encounter Id Patient Instructions Last Modified By Organization Details Last Modified Time 09/28/2021 [id number] pancreatitis: ca re instructions [email or web address] 3 Not available 09/28/2021 11:09:10 diet for chronic pancreatitis: care instructions [email or web address] 3 Not available 09/28/2021 11:09:16 learning about a cute pancreatitis 3 Not available 09/28/2021 11:09:15 [facility], vomiting, diarrhea, and abdominal [...] disease, do not use Tylenol. Ask your BLADE CHANGER how to address fever if you are concerned about Tylenol use. 3) Anti-diarrheal medicines: These are available [id number], but in some cases are not recommended and can even worsen some cases of intestinal problems. Ask your BLADE CHANGER if you should use them. In children [...] with one of the PCP suggestions from [facility]. SEEK CARE IMMEDIATELY IF: 1) You are [...] in your condition between 8am-10pm, please call [facility] at [phone] to help navigate your care. Thank you for your visit with [facility] today. You were seen today for abdominal [...] condition between 8am-10pm, please call [facility] at [phone] to help navigate your care. [email or web address] 3 Not available 09/28/2021 12:51:20 Reason for Referral None Reported. Results Created Date Observation Date Name Description Value Unit Range Abnormal Flag Note LastModifiedBy Organization Detail LastModifiedTime 09/28/19 22 09/28/2021 AMYLA SE amylase 44 U/L (28-10 0) Not Available [facility] (Centralized Electronic Ordering - All Locations) Patient Can Go To The Location Of Their Choice, [id number] 09/28/2021 16:04:40 09/28/19 22 09/28/2021 LIPAS E lipase 14 U/L (13-60 ) Not Available [facility] (Centralized Electronic Ordering - All Locations) Patient Can Go To The Location Of Their Choice, [id number] 09/28/2021 16:04:47 09/28/19 22 09/28/2021 BMP + IONIZ ED CALCI UM, SERUM OR PLASM A glu 121 mg/dL 70-105 Not Available [id number] [place], [address], 09/28/2021 13:28:25 09/28/19 22 09/28/2021 BMP + IONIZ ED CALCI UM, SERUM OR PLASM A BUN 10 mg/dL 8-26 Not Available [facility] [address] [place], [address], 09/28/2021 13:28:25 09/28/19 22 09/28/2021 BMP + IONIZ ED CALCI UM, SERUM OR PLASM A crea 0.7 mg/dL 0.6-1. 3 Not Available [facility] [address] [place], [address], 09/28/2021 13:28:25 09/28/19 22 09/28/2021 BMP + IONIZ ED CALCI UM, SERUM OR PLASM A Na 139 mmol/ L 138-14 6 Not Available [address], [address], 09/28/2021 13:28:25 09/28/19 22 09/28/2021 BMP + IONIZ ED CALCI UM, SERUM OR PLASM A K 4.5 mmol/ L 3.5-4. 9 Not Available [address], [address], 09/28/2021 13:28:25 09/28/19 22 09/28/2021 BMP + IONIZ ED CALCI UM, SERUM OR PLASM A cL 103 mmol/ L 98-109 Not Available [address], [address], 09/28/2021 13:28:25 09/28/19 22 09/28/2021 BMP + IONIZ ED CALCI UM, SERUM OR PLASM A TCO2 24 mmol/ L 24-29 Not Available [address], [address], 09/28/2021 13:28:25 09/28/19 22 09/28/2021 BMP + IONIZ ED CALCI UM, SERUM OR PLASM A angap 17 mmol/ L 10-20 Not Available [address], [address], 09/28/2021 13:28:25 09/28/19 22 09/28/2021 BMP + IONIZ ED CALCI UM, SERUM OR PLASM A ica 1.12 mmol/ L 1.12-1 .32 Not Available [address], [address], 09/28/2021 13:28:25 09/28/19 22 09/28/2021 BMP + IONIZ ED CALCI UM, SERUM OR PLASM A HCT 46 %pcv 38-51 Not Available [address] [place], [address], 09/28/2021 13:28:25 09/28/19 22 09/28/2021 BMP + IONIZ ED CALCI UM, SERUM OR PLASM A Hb 15.6 g/dL 12-17 Not Available Den Gurdeep [facility] [address] [place], [address], 09/28/2021 13:28:25 Result Notes None recorded. Procedures Surgical History Date Name Laterality Status Provider Name and Address Organization Details Recorded Time IV Start Procedure - completed February Nate, KRISTA [address] [facility], [place], [address], [place] [facility] 09/28/2021 14:36:32 Imaging Results [...] DIRECTED BY GASTROEN TEROLOGY DEPARTME NT AT [facility] active Not Available Not Available No [...] /min 130 mm[Hg] 86 mm[Hg] Not Available [facility] 11:03:48 Social History Question Answer Notes LastModified by [employer] Details LastModified Time Tobacco Smoking Status Never Smoker February Nate, KRISTA [address], [place], [address], [place] [facility] 09/28/2021 11:56:21 Do You Have An Advance Directive? No [email or web address] Information not available 09/28/2021 What Is Your Code Status? Full Code [email or web address] Information not available 09/28/2021 Within The Past 12 Months, Has It Happened That The Food You Bought Just Didn't Last And You Didn't Have Money To Get More. No [email or web address] Information not available 09/28/2021 Within The Past 12 Months, Have You Worried That Your Food Would Run Out Before You Got Money To Buy More. No [email or web address] Information not available 09/28/2021 Fall Risk: Do You Feel Unsteady When Standing Or Walking? No [email or web address] Information not available 09/28/2021 Excessive Alcohol Or Drug Use No [email or web address] Information not available 09/28/2021 Does This Patient Have A PCP? Yes [email or web address] Information not available 09/28/2021 Would You Like Help Connecting To Resources? None [email or web address] Information not available 09/28/2021 Sex: Unknown Functional Status Question Answer Note LastModified by [employer] Details LastModified Time Do you use any illicit or recreational drugs? No [email or web address] Information not available 09/28/2021 What is your level of alcohol consumption? Moderate [email or web address] Information not available 09/28/2021 Mental Status None recorded. Family History Relationship Description Onset Age of this Age Resolved Age Notes LastModified by Organization Details LastModified Time Father No current problems or disability [email or web address] Not available 0 09/28/2021 11:54:06 Mother No current problems or disability [email or web address] Not available 0 09/28/2021 11:54:06 Mother Diabetes mellitus [email or web address] Not available 11:54:38 Mother Hypertensive disorder [email or web address] Not available 11:54:53 Medical History No medical history recorded. Gynecological HistoryNo gynecological history recorded. Obstetrics History GPAL:G 0 P 0 0 0 0 Past Encounters Encounter ID Performer Location Encounter Start Date Encounter Closed Date Diagnosis/Indication Diagnosis SNOMED-CT Code Diagnosis ICD10 Code Diagnosis Note [id number] February [facility]STA [facility] [address] [facility] [place] [place] [address] 09/28/2021 10:44:50 09/30/2021 12:03:39 Pancreatitis 14949420 K85.90 Nausea, vo miting and diarrhea 7474632 R11.2 Abdominal pain 87986833 R10.9 Health Concerns Section Related Observation LastModified by Organization Detai ls LastModified Time None Recorded Concern Status LastModified by Organization Details LastModified Time None Recorded Advance Directives Directive N: Payers Insurance Date Sequence Insurance Name Policy Number Policy Gee Covered Member ID Gee Member ID Guarantor Name 12/18/2021 1 *SELF PAY* Narinder Kelleytiz 09/28/2021 1 [facility] [employer] [facility] PLAN (MEDICAID HMO) Amarilis Kelleytiz [id number] Amarilis Gerber 09/28/2021 1 *SELF PAY* Amarilis Gerber [id number] Amarilis Gerber 09/30/2021 1 *SELF PAY* Amarilis Gerber [id number] Amarilis Gerber 12/18/2021 1 [facility] PL[facility] (MEDICAID HMO) [id number] Amarilis Gerber [id number] Amarilis Gerber Notes Date Note Type Note [...] Covid or Influenza. February KRISTA Sullivan [address], [place], [address], [place] [facility] 10/01/2021 01:49:43 OBGyn Episode No OBEpisode recorded.
== END 2025-01-03 16:18 | disposition home or self-care (01) ==
LOC: HO.HGS 15:24
PROVIDERS: PCP Physician Assistant; Visit Provider Surgery
DX: K64.5 Perianal venous thrombosis (principal)
CPT/HCPCS: 99213

== ENCOUNTER 2025-03-01 15:35 | Outpatient (AMB) | payer OTHER, SELFPAY ==
--- NOTE | 2025-03-01 15:38 | MHC.PC.OV ---
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 Instructions: Doctor's Order hydroxyzine HCl 25 mg PO TID PRN 10 days oxycodone 5 mg PO Q8H PRN phentermine 37.5 mg PO DAILY 28 days sennosides (Natural Senna Laxative) 8.6 mg PO BEDTIME Tobacco use date assessed: 11/23/24 Dental Screening Dental Screen Date: 11/23/24 HPI medication 3 month follow up HPI Details Patient is a 54-year-old female here today for a follow-up visit. Patient has a past medical history significant for anxiety, hyperlipidemia,. Glucose metabolism, asthma. .. BMI 28: Has been able to lose significant amount of weight due to being more physically active and changing eating habits. Her BMI is now 28. For weight management, phentermine was prescribed. She did maintain weight loss with phentermine though would like to lose a bit more weight. She has a goal weight of 145 lb. Will restart phentermine for the next 2-3 months and will discontinue. .. .. Hyperlipidemia: Most recent lipid panel much improved total cholesterol and LDL and triglycerides. She continues on atorvastatin 20mg. We will be rechecking her lipid panel to ensure stable triglycerides, total cholesterol and LDL while off of fenofibrate. .. Asthma: Patient followed by [place] [facility]. She continues with a maintenance inhaler . . Major depressive disorder: The psychiatric history is marked by depression and anxiety, significantly exacerbated by personal life events. The patient is engaged in counseling services and highlights the need for potential medication management during intense depressive episodes, even as she expresses general reluctance towards medication use. She is currently using Wellbutrin. She has used hydroxyzine for her anxiety PRN. [facility] Medical History Obesity, Class I, BMI 30-34.9 Fibromyalgia Immunization due Physical exam Hypovitaminosis D GERD (gastroesophageal reflux disease) Mixed hyperlipidemia Leukopenia Constipation Skin lesion Surgical History Hx of colonoscopy History of dilatation and curettage Family History Father Stroke Mother Diabetes Hypertension Depression Maternal Aunt Diabetes Daughter Diabetes Social History Household Members: None Housing: House Alcohol intake: current Alcohol intake frequency: holidays/special occasions only Alcohol type: wine Patient Tobacco Use Status: Never used Tobacco e-Cigarette/Vaping Use: Never Used Second Hand Smoke Exposure: No service: No Current occupational status: employed 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 occupational exposures/hazards: No Sexual orientation: Straight/Heterosexual Gender identity: Female Cognitive needs: No Hearing needs: No Vision needs: Yes Questionnaire Thrive Questionnaire Date Thrive assessed: 12/27/24 I am a: Patient What is your living situation today?: I have a steady place to live Within the past 12 months, did the food you bought not last and you didn't have the money to get more?: Never true Within the past 12 months, did you worry whether your food would run out before you got money to buy more?: Never true Do you have trouble paying for medicines?: No Do you have trouble getting transportation to medical appointments?: No Do you have trouble paying your heating and electricity bill?: No Do you have trouble taking care of your child, family member or friend?: No Do you have trouble with day-to-day activities such as bathing, preparing meals, shopping, managing finances, etc.?: No Are you currently unemployed and looking for a job?: No Are you interested in more education?: No Please select the resources that you would like help with: None Currently or been in a relationship where the following occur: No concerns reported THRIVE Score: 0 FATIMAH-7 AMB Questionnaire FATIMAH-7 Date FATIMAH - 7 assessed: 05/09/24 Source: Developed by Drs. Best Delarosa, Shannan Steve, Sergio Haile and colleagues, with an educational kristal from [employer]. Review of Systems Const Denies headache(s) Eyes Denies loss of vision ENT Denies vertigo, Denies dizziness, Denies headache(s) and Denies sore throat Card Denies chest pain, Denies leg edema and Denies lightheadedness Resp Denies cough, Denies hemoptysis and Denies wheezing GI Denies abdominal pain, Denies melena, Denies constipation, Denies diarrhea and Denies vomiting Denies urinary frequency, Denies dysuria and Denies urinary urgency Musc Denies arthralgias, Denies joint swelling, Denies numbness and Denies tingling Neuro Denies Abnormal speech present, Denies behavioral changes, Denies vertigo, Denies dizziness, Denies headache(s), Denies loss of vision, Denies memory loss, Denies numbness and Denies tingling Psych Denies anxiety, Denies behavioral changes, Denies depression, Denies memory loss and Denies panic attacks Casey/Lymph Denies easy bleeding and Denies easy bruising Aller/Immun Denies wheezing Physical exam (Primary Care) Vital Signs: Last Vital Signs Temp 97.5 F 03/01/25 15:45 Pulse 90 03/01/25 15:45 BP 124/78 03/01/25 15:45 Pulse Ox 98 03/01/25 15:45 Oxygen Delivery Method Room Air 03/01/25 15:45 BMI result Body Mass Index 28.6 Tobacco/Smoking Status: Tobacco use Status Tobacco use date assessed 11/23/24 03/01/25 15:40 Patient Tobacco Use Status Never used Tobacco 03/01/25 15:40 e-Cigarette/Vaping Use Never Used 03/01/25 15:40 Thrive Assessment: Date of Thrive Assessment Date Thrive assessed 12/27/24 03/01/25 15:40 Currently or been in a relationship where the following occur: No concerns reported Const General: healthy appearing, no acute distress, alert and awake Nutritional Appearance: well nourished Orientation/consciousness: oriented to person, oriented to place and oriented to time HENMT Ears: TM's normal bilaterally General nose exam: Normal nasal mucous membranes and turbinates present Eyes Conjunctivae: conjunctivae normal Sclerae: sclerae normal Pupils: Equal, round and reactive pupils present Neck Neck: Yes no lymphadenopathy and Yes no JVD Thyroid: Thyroid normal Carotids: no bruits Resp Effort & Inspection: normal respiratory effort and not tachypneic Auscultation: no crackles, no rales, no rhonchi and no wheezes Cardio Rate: regular rate Rhythm: regular rhythm Heart sounds: no murmurs and normal S1 and S2 GI Palpation (GI): Soft to palpation, nontender, no hepatomegaly and no splenomegaly Auscultation: normal bowel sounds Skin General skin exam: no rashes or lesions noted and dry skin Neuro General: oriented to person, oriented to place and oriented to time Cranial nerves: Yes Equal, round and reactive pupils present Speech: No Abnormal speech present Gait exam (Neuro): Normal gait present Motor exam (neuro): no tremor noted Extrem Right upper extremity: full ROM Left upper extremity: full ROM Right lower extremity: full ROM; no edema Left lower extremity: full ROM; no edema Psych Mental Status: mental status grossly normal Speech and movement: Normal speech and movement present Affect: normal affect Attitude: cooperative Thought process: Normal thought process present Coding Level of Care Code Est Pt Level 3 (93903) Diagnoses Mixed hyperlipidemia E78.2 Impaired glucose metabolism R73.09 BMI 28.0-28.9,adult Z68.28 Assessment & Plan Assessment & Plan (1) Mixed hyperlipidemia: Code(s): E78.2 - Mixed hyperlipidemia Category: Medical Plan: Most recent lipid panel showing excellent control over total cholesterol LDL and triglycerides. Will continue to hold fenofibrate and recheck lipids in 3 months to evaluate the need for fenofibrate medication. (2) Impaired glucose metabolism: Code(s): R73.09 - Other abnormal glucose Category: Medical Plan: Patient has a history of impaired glucose metabolism. Has made lifestyle and dietary modifications in his lost weight. Now BMI at 28. Most recent A1c at 5.3. Will continue working on being more physically active (3) BMI 28.0-28.9,adult: Code(s): Z68.28 - Body mass index [BMI] 28.0-28.9, adult Category: Medical Plan: The patient will continue with lifestyle modifications, including diet and exercise, to achieve her weight loss goal of 145 pounds. Phentermine will be prescribed for another three months to assist with weight loss, with close monitoring for any cardiovascular side effects. Medications: Refilled phentermine must administer 30 minutes before or 1-2 hours after breakfast 37.5 mg PO DAILY 28 caps 1RF 28 days E66.9 - Obesity, unspecified Discontinued oxycodone Partial Fill upon patient request. Discontinued Reason: Doctor's Order 5 mg PO Q8H PRN 15 tabs 0RF severe pain (scale score 7-10)
--- OUTSIDE RECORDS SUMMARY | 2025-03-01 15:39 | XMS_ITS | Data Portability ---
Author Organization [place] [facility] Address [address] [place] [id number] Care Team Providers Care Process Expert Name Role Phone YUNG LINCOLN Primary Care Provider [phone] Assessment Encounter Date Assessment Date Assessment LastModified [...] better spirits and walked team to door. [email or web address] Not available 09/28/2021 16:33:54 Plan of Treatment Reminders Order Date Submit Date Provider Last Modified By Organization Details Last Modified Time Details Appointments None recorded. Lab amylase, serum or plasma 2021 GIANLUCA [facility] (Centralized Electronic Ordering - All Locations), Patient Can Go To The Location Of Their Choice, [id number] 16:04:41 lipase, serum or plasma 2021 GIANLUCA [facility] (Centralized Electronic Ordering - All Locations), Patient Can Go To The Location Of Their Choice, [id number] 16:04:47 BMP + ionized calcium, serum or plasma 2021 [facility], [address] [place] [address], [id number], 13:28:25 Referral None recorded. Procedures None recorded. Surgeries None recorded. Imaging None recorded. Medication Orders sodium chloride 0.9 % intravenous solution 2021 [email or web address] Not available 12:20:36 Zofran 2 mg/mL intravenous solution 2021 [email or web address] Not available 12:20:37 Patient TargetsNo targets recorded. Patient Instructions Encounter Date Encounter Id Patient Instructions Last Modified By Organization Details Last Modified Time 09/28/2021 [id number] pancreatitis: ca re instructions [email or web address] [id number] Not available 09/28/2021 11:09:10 diet for chronic pancreatitis: care instructions [email or web address] 3 Not available 09/28/2021 11:09:16 learning about a cute pancreatitis [email or web address] [id number] Not available 09/28/2021 11:09:15 [facility] nausea, vomiting, diarrhea, and abdominal pain. [...] caused by toxins released from food that goes bad as well as some types of bacteria [...] disease, do not use Tylenol. Ask your FILLING STATION EQUIPMENT MECHANIC how to address fever if you are concerned about Tylenol use. 3) Anti-diarrheal medicines: These are available juid-fct-fhqifrb, but in some cases are not recommended and can even worsen some cases of intestinal problems. Ask your FILLING STATION EQUIPMENT MECHANIC if you should use them. In children [...] with one of the PCP suggestions from [facility]. SEEK CARE IMMEDIATELY IF: 1) [...] in your condition between 8am-10pm, please call [facility] at [phone] to help navigate your care. Thank you for your visit with [facility] today. You were seen today [...] condition between 8am-10pm, please call [facility] at [phone] to help navigate your care. [email or web address] 3 Not available 09/28/2021 12:51:20 Reason for Referral None Reported. Results Created Date Observation Date Name Description Value Unit Range Abnormal Flag Note LastModifiedBy Organization Detail LastModifiedTime 09/28/19 22 09/28/2021 AMYLA SE amylase 44 U/L (28-10 0) Not Available [facility] (Centralized Electronic Ordering - All Locations) Patient Can Go To The Location Of Their Choice, [id number] 09/28/2021 16:04:40 09/28/19 22 09/28/2021 LIPAS E lipase 14 U/L (13-60 ) Not Available [facility] (Centralized Electronic Ordering - All Locations) Patient Can Go To The Location Of Their Choice, [id number] 09/28/2021 16:04:47 09/28/19 22 09/28/2021 BMP + IONIZ ED CALCI UM, SERUM OR PLASM A glu 121 mg/dL 70-105 Not Available [address] [place], [address], 09/28/2021 13:28:25 09/28/19 22 09/28/2021 BMP + IONIZ ED CALCI UM, SERUM OR PLASM A BUN 10 mg/dL 8-26 Not Available [facility] [address] [place], [address], 09/28/2021 13:28:25 09/28/19 22 09/28/2021 BMP + IONIZ ED CALCI UM, SERUM OR PLASM A crea 0.7 mg/dL 0.6-1. 3 Not Available [facility] [address] [place], [address], 09/28/2021 13:28:25 09/28/19 22 09/28/2021 BMP + IONIZ ED CALCI UM, SERUM OR PLASM A Na 139 mmol/ L 138-14 6 Not Available [address], [address], 09/28/2021 13:28:25 09/28/19 22 09/28/2021 BMP + IONIZ ED CALCI UM, SERUM OR PLASM A K 4.5 mmol/ L 3.5-4. 9 Not Available [address], [address], 09/28/2021 13:28:25 09/28/19 22 09/28/2021 BMP + IONIZ ED CALCI UM, SERUM OR PLASM A cL 103 mmol/ L 98-109 Not Available [address], [address], 09/28/2021 13:28:25 09/28/19 22 09/28/2021 BMP + IONIZ ED CALCI UM, SERUM OR PLASM A TCO2 24 mmol/ L 24-29 Not Available [address], [address], 09/28/2021 13:28:25 09/28/19 22 09/28/2021 BMP + IONIZ ED CALCI UM, SERUM OR PLASM A angap 17 mmol/ L 10-20 Not Available [address], [address], 09/28/2021 13:28:25 09/28/19 22 09/28/2021 BMP + IONIZ ED CALCI UM, SERUM OR PLASM A ica 1.12 mmol/ L 1.12-1 .32 Not Available [address], [address], 09/28/2021 13:28:25 09/28/19 22 09/28/2021 BMP + IONIZ ED CALCI UM, SERUM OR PLASM A HCT 46 %pcv 38-51 Not Available [address], [place], [address], 09/28/2021 13:28:25 09/28/19 22 09/28/2021 BMP + IONIZ ED CALCI UM, SERUM OR PLASM A Hb 15.6 g/dL 12-17 Not Available Kofi Mackenzie l [facility] [address] [place], [address], 09/28/2021 13:28:25 Result Notes None recorded. Procedures Surgical History Date Name Laterality Status Provider Name and Address Organization Details Recorded Time IV Start Procedure - completed February Nate, KRISTA [address], [place], [address], [place] [facility] 09/28/2021 14:36:32 Imaging Results [...] DIRECTED BY GASTROEN TEROLOGY DEPARTME NT AT [facility] active Not Available Not Available No t Available Adult Probiotic 3 billion cell capsule 3000 MMU CELLS PO DAILY ADMINIST ER WITH A MEAL active Not Available Not Available No t Available Vitals Date Recorded Oxygen saturation Oxygen saturation in Arterial blood by Pulse oximetry Respiratory rate Heart rate Body temperature Heart rate Systolic And Diastolic Provider Name and Address Organization Details Last Updated DateTime 97 % 97 % 18 /min 140 /min 99.3 [degF] 120 /min 130/86 mm[Hg] Not Available [facility] 11:03:48 Social History Question Answer Notes LastModified by mInfo Details LastModified Time Tobacco Smoking Status Never Smoker February Nate, KRISTA [address], [place], [address], [place] [facility] 09/28/2021 11:56:21 Do You Have An Advance Directive? No [email or web address] Information not available 09/28/2021 What Is Your Code Status? Full Code [email or web address] Information not available 09/28/2021 Within The Past 12 Months, Has It Happened That The Food You Bought Just Didn't Last And You Didn't Have Money To Get More. No [email or web address] Information not available 09/28/2021 Within The Past 12 Months, Have You Worried That Your Food Would Run Out Before You Got Money To Buy More. No [email or web address] Information not available 09/28/2021 Fall Risk: Do You Feel Unsteady When Standing Or Walking? No [email or web address] Information not available 09/28/2021 Excessive Alcohol Or Drug Use No [email or web address] Information not available 09/28/2021 Does This Patient Have A PCP? Yes [email or web address] Information not available 09/28/2021 Would You Like Help Connecting To Resources? None [email or web address] Information not available 09/28/2021 Sex: Unknown Functional Status Question Answer Note LastModified by mInfo Details LastModified Time Do you use any illicit or recreational drugs? No [email or web address] Information not available 09/28/2021 What is your level of alcohol consumption? Moderate [email or web address] Information not available 09/28/2021 Mental Status None recorded. Family History Relationship Description Onset Age of this Age Resolved Age Notes LastModified by Organization Details LastModified Time Father No current problems or disability [email or web address] Not available 0 09/28/2021 11:54:06 Mother No current problems or disability [email or web address] Not available 0 09/28/2021 11:54:06 Mother Diabetes mellitus [email or web address] Not available 11:54:38 Mother Hypertensive disorder [email or web address] Not available 11:54:53 Medical History No medical history recorded. Gynecological HistoryNo gynecological history recorded. Obstetrics History GPAL:G 0 P 0 0 0 0 Past Encounters Encounter ID Performer Location Encounter Start Date Encounter Closed Date Diagnosis/Indication Diagnosis SNOMED-CT Code Diagnosis ICD10 Code Diagnosis Note [id number] February KRISTA [facility] [address] [facility] JORDYN NARINDER [id number] 09/28/2021 10:44:50 09/30/2021 12:03:39 Pancreatitis 30800402 K85.90 Nausea, vo miting and diarrhea 9283933 R11.2 Abdominal pain 13792951 R10.9 Health Concerns Section Related Observation LastModified by Organization Detai ls LastModified Time None Recorded Concern Status LastModified by Organization Details LastModified Time None Recorded Advance Directives Directive N: Payers Insurance Date Sequence Insurance Name Policy Number Policy Gee Covered Member ID Gee Member ID Guarantor Name 12/18/2021 1 *SELF PAY* Narinder duff Gerber 09/28/2021 1 [facility] [employer] PLAN (MEDICAID HMO) Amarilis Kelleytiz [id number] Amarilis Gerber 09/28/2021 1 *SELF PAY* Amarilis Gerber [id number] Amarilis Gerber 09/30/2021 1 *SELF PAY* Amarilis Gerber [id number] Amarilis Gerber 12/18/2021 1 [facility] [employer] [facility] PLAN (MEDICAID HMO) [id number] Amarilis Gerber [id number] Amarilis Gerber Notes Date Note Type Note [...] not vaccinated against Covid or Influenza. Yudith KRISTA Sullivan [address], [place], [address], [place] [facility] 10/01/2021 01:49:43 OBGyn Episode No OBEpisode recorded.
[2025-03-01 15:45] VITALS: BP 124/78; PULSE 90; TEMP 36.4; O2SAT 98; BMI 28.6
== END 2025-03-01 16:29 | disposition home or self-care (01) ==
LOC: HO.HMCH 15:35
PROVIDERS: PCP Physician Assistant; Visit Provider Physician Assistant
DX: E78.2 Mixed hyperlipidemia (principal); R73.09 Other abnormal glucose; Z68.28 Body mass index [BMI] 28.0-28.9, adult

== ENCOUNTER 2025-05-11 15:17 | Outpatient (AMB) | payer OTHER, SELFPAY ==
[2025-05-11 15:19] VITALS: BP 128/88
--- NOTE | 2025-05-11 15:19 | A.OFFVIS_ITS ---
Vital Signs 05/11/25 15:19 Height 5 ft 1 in BP 128/88 Intake Visit Reasons: menopause symptoms Allergies diphtheria,pertussis (acellular),te (From Adacel(Tdap Adolesn/Adult)(PF)) Allergy (Intermediate, Verified 05/11/25 15:20) Swelling metronidazole (Flagyl) Allergy (Intermediate, Verified 05/11/25 15:20) itching HPI Comments Details: Presenting complaining of hot flashes and vaginal dryness. FSH in 12/16 was in the menopausal range. The patient is status post hysterectomy few months ago at [facility] Last mammogram in 08/16 was [facility] Medical History Obesity, Class I, BMI 30-34.9 Fibromyalgia Immunization due Physical exam Hypovitaminosis D GERD (gastroesophageal reflux disease) Mixed hyperlipidemia Leukopenia Constipation Skin lesion Surgical History Hx of colonoscopy History of dilatation and curettage Family History Father Stroke Mother Diabetes Hypertension Depression Maternal Aunt Diabetes Daughter Diabetes Social History Household Members: None Housing: House Alcohol intake: current Alcohol intake frequency: holidays/special occasions only Alcohol type: wine Patient Tobacco Use Status: Never used Tobacco e-Cigarette/Vaping Use: Never Used Second Hand Smoke Exposure: No service: No Current occupational status: employed 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 occupational exposures/hazards: No Sexual orientation: Straight/Heterosexual Gender identity: Female Cognitive needs: No Hearing needs: No Vision needs: Yes Female Reproductive History Menstrual Age of Menarche: 15 control method: permanent sterilization Review of Systems Const All systems reviewed & are unremarkable except as noted in HPI and below Reports as per HPI and Reports no additional complaints GI Reports no additional complaints Reports no additional complaints Assessment & Plan Assessment & Plan (1) Hot flashes: Code(s): R23.2 - [place] Category: Medical Plan: Discussed with the patient the options of treatment of hot flashes including hormonal replacement therapy, all the pros, cons, risks and benefits (benefits= prevention of hot flashes, atrophic vaginitis, osteoporosis, decrease colon ca risk; also discussed with the patient the risks of TX, Breast ca, DVT, PE, Strokes). In addition, discussed with the patient non hormonal treatment options for hot flashes treatment in surgical menopausal patient. Options discussed with the patient include the following: SSRI/SNRIs , difficulty has been demonstrated in multiple trials clinical response is more rapid (days) than typical response to SSRI for depression (weeks), they are equally effective in natural versus surgical menopause, they have similar modest benefit for hot flashes; Citalopram 20 mg per day is another 1st choice option, prescription sent to the patient's pharmacy. Instructions given the patient to for 60 days initial trial call in case of any side effects and to schedule a 2 month follow-up appointment (2) Atrophic vaginitis: Code(s): N95.2 - Postmenopausal atrophic vaginitis Category: Medical Plan: Discussed with the patient options of treatment including lubricants versus estrogen vaginal therapy it all pros and cons risks and benefits of each were discussed with the patient including risk of estrogen vaginal treatment including but not limited to increase in the risk of TX, breast cancer, strokes , DVT and PE. All questions answered, the patient would like a trial of estrogen vaginal cream. Estrace 0.01% vaginally half an application q.d. for 2 weeks to be followed by 2-3 times a week for 60 days trial sent to the patient's pharmacy. Medications: New citalopram 20 mg PO DAILY 60 tabs 0RF estradiol 0.01%(0.1mg/gram) (Estrace) Half an application vaginally daily at bedtime for 2 weeks then 2-3 times a week 1 g vaginal QWEEK 42.5 grams 0RF 60 days Discontinued hydroxyzine HCl Discontinued Reason: Patient no longer taking 25 mg PO TID 10 days PRN 30 tabs 1RF anxiety F32.9 - Major depressive disorder, single episode, unspecified, F41.9 - Anxiety disorder, unspecified Coding Level of Care Code Est Pt Level 3 (35432) Diagnoses Hot flashes R23.2 Atrophic vaginitis N95.2
--- OUTSIDE RECORDS SUMMARY | 2025-05-11 16:46 | XMS_ITS | Clinical Summary ---
Author Organization [facility] Address [address] [facility] [address] [place] [id number] Phone Care Team Providers Care Foreign Student Adviser Teacher Name Role Phone Dayana Schmitz MD Primary Care Provid er Allergies No known active allergies Medications hydrocortisone-p ramoxine (PROCTOFOAM-HC) rectal foam Place 1 applicator rectally 2 (two) times a day. 10 g 9 Active Additional Information Patient not taking.Reported on 06/06/2019 MIRENA 20 mcg/24 hours (5 yrs) 52 mg intrauterine device TO BE INSERTED ONE TIME BY PRESCRIBER. ROUTE INTRAUTERINE. 0 9 Active albuterol 90 mcg/actuation inhaler Inhale 2 puffs into the lungs every 6 (six) hours as needed for wheezing. 1 Inhaler 9 Active Active Problems No known active problems Social History Tobacco Use Types Packs/Day Years Used Date Smoking Tobacco: Never Smokeless Tobacco: Never Alcohol Use Standard Drinks/Week Comments Yes 0 (1 standard drink = 0.6 oz pur e alcohol) occasionally Education Answer Date Recorded Are you interested in more education? Not on amee e 12/19/2022 Are you concerned about learning? Not on file 12/19/2022 No 12/19/2022 No 12/19/2022 Digital Access Answer Date Recorded No 01/17/2023 No 01/17/2023 Reliable internet access at home? Not on file 01/17/2023 Device with a working camera? Not on file Comments Unknown Sex and Gender Information Value Date Recorded Sex Assigned at Not on file Legal Sex Female 5:01 PM EDT Gender Identity Not on file Sexual Orientation Not on file Last Filed Vital Signs Vital Sign Reading Time Taken Comments Blood Pressure 143/82 06/06/2019 9:24 AM EDT Pulse 92 06/06/2019 9:24 AM EDT Temperature 36.8 C (98.2 F) 06/06/2019 9:24 AM EDT Respiratory Rate 18 03/19/2019 11:31 AM EDT Oxygen Saturation 98% 06/06/2019 9:24 AM EDT Inhaled Oxygen Concentration - - Weight 75.4 kg (166 lb 3.2 oz) 06/06/2019 9:24 A M EDT Height 154.9 cm (5' 1 ) 06/06/2019 9:24 AM EDT Body Mass Index 31.4 06/06/2019 9:24 AM EDT Plan of Treatment Health Maintenance Due Date Last Done Comments Adult Td,Tdap Booster 1972 LIPID PANEL 1972 DEPRESSION SCREENING 1984 HEPATITIS C SCREENING 1990 HIV ONE-TIME SCREENING (18-6 5 YEARS) 1990 PAP SMEAR 1993 MAMMOGRAM 2012 COLOGUARD 2017 COLONOSCOPY 2017 COLORECTAL CANCER SCREENING 2017 FIT TEST 2017 FOBT 2017 SIGMOIDOSCOPY 2017 VIRTUAL COLONOSCOPY 2017 PNEUMOCOCCAL VACCINES (50+ y ears) (1 of 1 - PCV) 2022 ZOSTER VACCINES (1 of 2) 2022 INFLUENZA VACCINE (#1) 2025 COVID-19 VACCINE (1 - 2023-2 5 season) 2025 SMOKING STATUS SCREENING (On ce After 26 Yrs) Completed 06/06/2019 HEPATITIS A VACCINES Aged Out No long er eligible based on patient's age to complete this topic HIB VACCINES Aged Out No longer eligi ble based on patient's age to complete this topic MENINGOCOCCAL VACCINES (ACWY) Aged Out No longer eligible based on patient's age to complete this topic MENINGOCOCCAL VACCINES (B) Aged Out N o longer eligible based on patient's age to complete this topic Medical Devices Not on file Insurance [place] [address] [place] [address] [place] [address] [place] [address] [place] [address] Care Teams Foreign Student Adviser Teacher Relationship Specialty Start Date End Date Dayana Schmitz MD [address] [place] [address] PCP - General Internal Medicine 12/13/18 Additional Source Comments The information contained in this document represents components of the legal health record. It is not the complete legal health record.[facility]
--- OUTSIDE RECORDS SUMMARY | 2025-05-11 16:46 | XMS_ITS | Encounter Summary ---
Author Organization [facility] Address [address] [address] Phone Care Team Providers Care Deputy Director Of Finance Name Role Phone Dayana Schmitz MD Primary Care Provid er Encounter Details Date Type Department Care Team ([facility] st Contact Info) Description 04/22/2024 Telephone [facility] OBGYN Gynecology Resident [address] [place], [place] [id number] Elizabeth Peters [place], [place] [address] [place] [address] [email or web address] Social History Tobacco Use Types Packs/Day Years [...] on file Sexual Orientation Not on file documented as of this encounter Plan of Treatment Not on file documented as of this encounter Visit Diagnoses Not on filedocumented in this encounter Care Teams Deputy Director Of Finance Relationship Specialty Start Date End Date Dayana Schmitz MD [address] [place] [address] PCP - General Internal Medicine 12/13/18 documented as of this encounter Additional Source Comments The information contained in this document represents components of the legal health record. It is not the complete legal health record.[facility]
== END 2025-05-11 15:55 | disposition home or self-care (01) ==
LOC: HO.HWS 15:17
PROVIDERS: PCP Physician Assistant; Visit Provider Obstetrics & Gynecology
DX: R23.2 Flushing (principal); N95.2 Postmenopausal atrophic vaginitis
CPT/HCPCS: 99213

== ENCOUNTER 2025-06-02 06:30 | Outpatient (REF) | payer OTHER, SELFPAY ==
[2025-06-02 07:51] LABS: Alanine Aminotransferase 30 U/L (0-31); Albumin Level 3.9 g/dL (3.5-5.0); Alkaline Phosphatase 71 U/L (39-117); Anion Gap 10 (12-20); Aspartate Amino Transferase 24 U/L (5-31); Blood Urea Nitrogen 11 mg/dL (9-16); Calcium 8.6 mg/dL (8.4-10.2); Carbon Dioxide 27 mmol/L (22-29); Chloride 107 mmol/L (96-108); Cholesterol 197 mg/dL (<200); Estimated Glomerular Filt Rate > 60; HDL Cholesterol 48 mg/dL (>40); Potassium 4.0 mmol/L (3.3-5.1); Sodium 140 mmol/L (135-145); Total Protein 6.6 g/dL (6.5-8.0); Triglycerides 274 mg/dL (<150)
== END 2025-06-02 06:31 | disposition home or self-care (01) ==
LOC: HO.LAB 06:30
PROVIDERS: PCP Physician Assistant; Visit Provider Physician Assistant
DX: E78.2 Mixed hyperlipidemia (principal); R73.09 Other abnormal glucose
CPT/HCPCS: 36415; 80053; 80061; 83036

== ENCOUNTER 2025-06-06 15:39 | Outpatient (AMB) | payer OTHER, SELFPAY ==
--- NOTE | 2025-06-06 15:50 | A.OFFPC_ITS ---
Vital Signs 06/06/25 15:51 Height 5 ft 1 in Weight 162 lb 2 oz BMI 30.6 BP 118/68 Blood Pressure Location Lt brachial Position Sitting Temp 97.3 F Temp Source Temporal Artery Scan Intake Visit Reasons: f/u Weight check Intake Note: Patient is here to follow up on Weight check. Research Advisor Required: No Pilot Plant Operator: Not Required per policy Accompanied by: Self / Same As Patient Allergies diphtheria,pertussis (acellular),te (From Adacel(Tdap Adolesn/Adult)(PF)) Allergy (Intermediate, Verified 06/06/25 15:58) Swelling metronidazole (Flagyl) Allergy (Intermediate, Verified 06/06/25 15:58) itching Medication List - Last Reconciled 06/06/25 by Manjit Zavala PA-C albuterol sulfate 90 mcg/actuation (Ventolin HFA) 1 puff inhalation Q4H PRN atorvastatin 20 mg PO BEDTIME 90 days bupropion HCl XL 150 mg PO QAM 90 days cholecalciferol (vitamin D3) 50 mcg PO DAILY 90 days citalopram 20 mg PO DAILY estradiol 0.01%(0.1mg/gram) (Estrace) 1 g vaginal QWEEK 60 days fenofibrate 54 mg PO DAILY 90 days Held on 12/27/24. Instructions: Doctor's Order phentermine 37.5 mg PO DAILY 28 days sennosides (Natural Senna Laxative) 8.6 mg PO BEDTIME Tobacco use date assessed: 06/06/25 Dental Screening Dental Screen Date: 11/23/24 HPI f/u Weight check HPI Details Patient is a 55-year-old female here today for a follow-up visit. Patient has a past medical history significant for anxiety, hyperlipidemia,. Impaired Glucose metabolism, asthma. .. Class 1 obesity: Has gained weight since last office visit. She reports she has not been as physically active as she was. She reports being sick last month and was prescribed medication to help her through a bronchitis. She had a goal weight of 145 lb Will restart phentermine for the next 2-3 months and will discontinue. .. Vasomotor symptoms of menopause: Has followed up with her digital analytics manager and started citalopram 20 mg though had intolerable side effects of lethargy. She has been started on estradiol cream which she has been using consistently. 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 She will continue with the vaginal cream. .. Hyperlipidemia: Most recent lipid panel showing appropriate total cholesterol and LDL unfortunately triglycerides elevated about 200. We did hold her fenofibrate in an effort to reduce overall medication. She would like to hold off on starting any new cholesterol medication for now work on lifestyle and dietary modification. She continues on atorvastatin 20mg. . .. Asthma: Patient followed by [facility]. She continues with a maintenance inhaler . . Major depressive disorder: The psychiatric history is marked by depression and anxiety, significantly exacerbated by personal life events. The patient is engaged in counseling services and highlights the need for potential medication management during intense depressive episodes, even as she expresses general reluctance towards medication use. She is currently using Wellbutrin. She has used hydroxyzine for her anxiety PRN. [facility] Medical History Obesity, Class I, BMI 30-34.9 Fibromyalgia Immunization due Physical exam Hypovitaminosis D GERD (gastroesophageal reflux disease) Mixed hyperlipidemia Leukopenia Constipation Skin lesion Surgical History Hx of colonoscopy History of dilatation and curettage Family History Father Stroke Mother Diabetes Hypertension Depression Maternal Aunt Diabetes Daughter Diabetes Social History Household Members: None Housing: House Alcohol intake: current Alcohol intake frequency: holidays/special occasions only Alcohol type: wine Patient Tobacco Use Status: Never used Tobacco e-Cigarette/Vaping Use: Never Used Second Hand Smoke Exposure: No service: No Current occupational status: employed 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 occupational exposures/hazards: No Sexual orientation: Straight/Heterosexual Gender identity: Female Cognitive needs: No Hearing needs: No Vision needs: Yes Female Reproductive History Menstrual Age of Menarche: 15 Questionnaire Thrive Questionnaire Date Thrive assessed: 12/27/24 I am a: Patient What is your living situation today?: I have a steady place to live Within the past 12 months, did the food you bought not last and you didn't have the money to get more?: Never true Within the past 12 months, did you worry whether your food would run out before you got money to buy more?: Never true Do you have trouble paying for medicines?: No Do you have trouble getting transportation to medical appointments?: No Do you have trouble paying your heating and electricity bill?: No Do you have trouble taking care of your child, family member or friend?: No Do you have trouble with day-to-day activities such as bathing, preparing meals, shopping, managing finances, etc.?: No Are you currently unemployed and looking for a job?: No Are you interested in more education?: No Please select the resources that you would like help with: None Currently or been in a relationship where the following occur: No concerns reported THRIVE Score: 0 FATIMAH-7 AMB Questionnaire FATIMAH-7 Date FATIMAH - 7 assessed: 06/06/25 Feeling nervous, anxious, or on edge: 0 = Not at all Not being able to stop or control worryin = Not at all Worrying too much about different things: 0 = Not at all Trouble relaxin = Not at all Being so restless that it is hard to sit still: 0 = Not at all Becoming easily annoyed or irritable: 0 = Not at all Feeling afraid as if something awful might happen: 0 = Not at all Total FATIMAH-7 score (0-4 normal; 5-9 mild; 10-14 moderate; 15-21 severe): 0 Source: Developed by Drs. Best Delarosa, Shannan Steve, Sergio Haile and colleagues, with an educational kristal from [employer]. Review of Systems Const Denies headache(s) Eyes Denies loss of vision ENT Denies vertigo, Denies dizziness, Denies headache(s) and Denies sore throat Card Denies chest pain, Denies leg edema and Denies lightheadedness Resp Denies cough, Denies hemoptysis and Denies wheezing GI Denies abdominal pain, Denies melena, Denies constipation, Denies diarrhea and Denies vomiting Denies urinary frequency, Denies dysuria and Denies urinary urgency Musc Denies arthralgias, Denies joint swelling, Denies numbness and Denies tingling Neuro Denies Abnormal speech present, Denies behavioral changes, Denies vertigo, Denies dizziness, Denies headache(s), Denies loss of vision, Denies memory loss, Denies numbness and Denies tingling Psych Denies anxiety, Denies behavioral changes, Denies depression, Denies memory loss and Denies panic attacks Casey/Lymph Denies easy bleeding and Denies easy bruising Aller/Immun Denies wheezing Physical exam (Primary Care) Vital Signs: Last Vital Signs Temp 97.3 F 06/06/25 15:51 BP 118/68 06/06/25 15:51 BMI result Body Mass Index 30.6 Tobacco/Smoking Status: Tobacco use Status Tobacco use date assessed 06/06/25 06/06/25 15:56 Patient Tobacco Use Status Never used Tobacco 06/06/25 15:56 e-Cigarette/Vaping Use Never Used 06/06/25 15:56 Thrive Assessment: Date of Thrive Assessment Date Thrive assessed 12/27/24 06/06/25 15:56 Currently or been in a relationship where the following occur: No concerns reported Const General: healthy appearing, no acute distress, alert and awake Nutritional Appearance: well nourished Orientation/consciousness: oriented to person, oriented to place and oriented to time HENMT Ears: TM's normal bilaterally General nose exam: Normal nasal mucous membranes and turbinates present Eyes Conjunctivae: conjunctivae normal Sclerae: sclerae normal Pupils: Equal, round and reactive pupils present Neck Neck: Yes no lymphadenopathy and Yes no JVD Thyroid: Thyroid normal Carotids: no bruits Resp Effort & Inspection: normal respiratory effort and not tachypneic Auscultation: no crackles, no rales, no rhonchi and no wheezes Cardio Rate: regular rate Rhythm: regular rhythm Heart sounds: no murmurs and normal S1 and S2 GI Palpation (GI): Soft to palpation, nontender, no hepatomegaly and no splenomegaly Auscultation: normal bowel sounds Skin General skin exam: no rashes or lesions noted and dry skin Neuro General: oriented to person, oriented to place and oriented to time Cranial nerves: Yes Equal, round and reactive pupils present Speech: No Abnormal speech present Gait exam (Neuro): Normal gait present Motor exam (neuro): no tremor noted Extrem Right upper extremity: full ROM Left upper extremity: full ROM Right lower extremity: full ROM; no edema Left lower extremity: full ROM; no edema Psych Mental Status: mental status grossly normal Speech and movement: Normal speech and movement present Affect: normal affect Attitude: cooperative Thought process: Normal thought process present Coding Level of Care Code Est Pt Level 4 (32086) Diagnoses Mixed hyperlipidemia E78.2 Impaired glucose metabolism R73.09 Obesity, Class I, BMI 30-34.9 E66.9 Atrophic vaginitis N95.2 Assessment & Plan Assessment & Plan (1) Mixed hyperlipidemia: Code(s): E78.2 - Mixed hyperlipidemia Category: Medical Plan: Most recent lipid panel showing excellent control over total cholesterol LDL . We have held her fenofibrate and unfortunately your triglycerides did elevate on 2 borderline levels. Will continue to hold fenofibrate and she will work extensively on dietary modification. (2) Impaired glucose metabolism: Code(s): R73.09 - Other abnormal glucose Category: Medical Plan: Patient has a history of impaired glucose metabolism. Has made lifestyle and dietary modifications in his lost weight. Now BMI at 28. Most recent A1c at 5.3. Will continue working on being more physically active (3) Obesity, Class I, BMI 30-34.9: Code(s): E66.9 - Obesity, unspecified Category: Medical Plan: Patient does understand she has gained weight since last office visit. She has not been taking phentermine and has been much more inactive as of late. She does understand she needs to be more physically active to maintain her weight loss. She will restart phentermine. She is interested in a prescription for GLP 1 as she does have obesity related comorbidities such as hyperlipidemia and impaired glucose metabolism. If GLP 1 cover by insurance will continue with the phentermine regime. (4) Atrophic vaginitis: Code(s): N95.2 - Postmenopausal atrophic vaginitis Category: Medical Plan: For menopausal symptoms, the patient will continue using the prescribed medication and estradiol cream as directed by her OBGYN. She is advised to adjust the timing of her medication to minimize fatigue and potential i nteractions with her weight loss medication. Orders: Orders Hemoglobin A1c Today R73.09 - Other abnormal glucose Comprehensive [place]. Panel Fast Today R73.09 - Other abnormal glucose Complete Blood Count no Diff Today R73.09 - Other abnormal glucose Lipid Panel Today E78.2 - Mixed hyperlipidemia TSH reflex Free T4 Today E66.9 - Obesity, unspecified Medications: New tirzepatide (weight loss) (Zepbound) for 4 weeks 2.5 mg (0.5 mL) subcut QWEEK 2 mL 1RF 4 weeks E66.9 - Obesity, unspecified, E78.2 - Mixed hyperlipidemia, R73.02 - Impaired glucose tolerance (oral) Changed From estradiol 0.01%(0.1mg/gram) (Estrace) Half an application vaginally daily at bedtime for 2 weeks then 2-3 times a week 1 g vaginal QWEEK 60 days 42.5 grams 0RF N95.2 - Postmenopausal atrophic vaginitis To estradiol 0.01%(0.1mg/gram) (Estrace) 1 g vaginal 3XW 60 days 42.5 grams 2RF N95.2 - Postmenopausal atrophic vaginitis Refilled estradiol 0.01%(0.1mg/gram) (Estrace) 1 g vaginal 3XW 42.5 grams 2RF 60 days N95.2 - Postmenopausal atrophic vaginitis phentermine must administer 30 minutes before or 1-2 hours after breakfast 37.5 mg PO DAILY 28 caps 1RF 28 days E66.9 - Obesity, unspecified Discontinued citalopram Discontinued Reason: Doctor's Order 20 mg PO DAILY 60 tabs 0RF
[2025-06-06 15:51] VITALS: BP 118/68; TEMP 36.3; BMI 30.6
--- OUTSIDE RECORDS SUMMARY | 2025-06-06 18:20 | XMS_ITS | Encounter Summary ---
Author Organization [facility] Address [address] [address] Phone Care Team Providers Care Manufacturing Coordinator Name Role Phone Dayana Schmitz MD Primary Care Provid er Encounter Details Date Type Department Care Team ([facility] st Contact Info) Description 04/22/2024 Telephone [facility] OBGYN Gynecology Resident [address] [place], [place] [id number] Elizabeth Peters [place], [place] [address] [place] [address] [email or web address] Social History Tobacco Use Types Packs/Day Years [...] on filedocumented in this encounter Care Teams Manufacturing Coordinator Relationship Specialty Start Date End Date Dayana Schmitz MD [address] [place] [address] PCP - General Internal Medicine 12/13/18 documented as of this encounter Additional Source Comments The information contained in this document represents components of the legal health record. It is not the complete legal health record.[facility]
--- OUTSIDE RECORDS SUMMARY | 2025-06-06 18:20 | XMS_ITS | Clinical Summary ---
Author Organization [facility] Address [address] [facility] [address] [place] [phone] Phone Care Team Providers Care Tire Builder Name Role Phone Dayana Schmitz MD Primary [...] 2022 INFLUENZA VACCINE (#1) 2025 COVID-19 VACCINE ( - 2024-2 6 season) 2025 RSV VACCINE (1 - 1-dose 75+ series) 2047 SMOKING STATUS SCREENING (On ce After 26 [...] topic Medical Devices Not on file Insurance [employer] * Guarantor: Amarilis Gerber Account Type Relation to Patient Date of Phone Billing Address Personal/Family Self [address] [place] [address] [facility] * Guarantor: Amarilis Gerber Account Type Relation to Patient Date of Phone Billing Address Personal/Family Self [address] [place] [id number] [place] [address] * Guarantor: Amarilis Gerber Account Type Relation to Patient Date of Phone Billing Address Personal/Family Self [address] [place] [id number] Care Teams Tire Builder Relationship Specialty Start Date End Date Dayana Schmitz MD [address] [place] [address] PCP - General Internal Medicine 12/13/18 Additional Source Comments The information contained in this document represents components of the legal health record. It is not the complete legal health record.[facility]
== END 2025-06-06 16:24 | disposition home or self-care (01) ==
LOC: HO.HMCH 15:40
PROVIDERS: PCP Physician Assistant; Visit Provider Physician Assistant
DX: E78.2 Mixed hyperlipidemia (principal); R73.09 Other abnormal glucose; E66.9 Obesity, unspecified; Z68.30 Body mass index [BMI] 30.0-30.9, adult; N95.2 Postmenopausal atrophic vaginitis

== ENCOUNTER 2025-08-10 12:38 | Outpatient (AMB) | payer OTHER, SELFPAY ==
--- NOTE | 2025-08-10 12:39 | MHC.OFFVIS ---
Intake Visit Reasons: medication follow up Allergies diphtheria,pertussis (acellular),te (From Adacel(Tdap Adolesn/Adult)(PF)) Allergy (Intermediate, Verified 06/06/25 15:58) Swelling metronidazole (Flagyl) Allergy (Intermediate, Verified 06/06/25 15:58) itching HPI Comments Details: The patient is schedule telehealth visit as a follow-up regarding Citalopram treatment for hot flashes and estradiol vaginal cream. The patient has feels improvement with the hot flashes but complaining of sleepiness when taking the citalopram in the morning and her vaginal irritation has improved markedly PFSH Medical History Obesity, Class I, BMI 30-34.9 Fibromyalgia Immunization due Physical exam Hypovitaminosis D GERD (gastroesophageal reflux disease) Mixed hyperlipidemia Leukopenia Constipation Skin lesion Surgical History Hx of colonoscopy History of dilatation and curettage Family History Father Stroke Mother Diabetes Hypertension Depression Maternal Aunt Diabetes Daughter Diabetes Social History Household Members: None Housing: House Alcohol intake: current Alcohol intake frequency: holidays/special occasions only Alcohol type: wine Patient Tobacco Use Status: Never used Tobacco e-Cigarette/Vaping Use: Never Used Second Hand Smoke Exposure: No service: No Current occupational status: employed 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 occupational exposures/hazards: No Sexual orientation: Straight/Heterosexual Gender identity: Female Cognitive needs: No Hearing needs: No Vision needs: Yes Female Reproductive History Menstrual Age of Menarche: 15 Telehealth Telehealth Telehealth Platform: [employer] Location of provider rendering services: practice address Location of patient: address on file Patient Identification confirmed using: Name, : Yes Telehealth method: video Patient verbally consented to treatment: Yes Patient verbally consented to billing insurance company: Yes Patient informed of any privacy concerns related to visit: Yes Minutes spent on Phone/Video with Pt.: 5 Assessment & Plan Assessment & Plan (1) Atrophic vaginitis: Code(s): N95.2 - Postmenopausal atrophic vaginitis Category: Medical Plan: Recommended the patient to take a quarter to half an applicator 2 to 3 times a week for maintenance of estradiol, refill sent to the patient's pharmacy (2) Hot flashes: Code(s): R23.2 - [place] Category: Medical Plan: Recommended the patient to take her citalopram in the evening that will help was insomnia, instructions given the patient to call if hot flashes are not improve. All questions answered, the patient verbalized understanding I spent a total of 20 minutes reviewing the chart, talking to the patient via video and documenting in the medical record. Medications: New citalopram 20 mg PO DAILY 90 tabs 0RF 90 days Changed From estradiol 0.01%(0.1mg/gram) (Estrace) 1 g vaginal 3XW 60 days 42.5 grams 2RF N95.2 - Postmenopausal atrophic vaginitis To estradiol 0.01%(0.1mg/gram) (Estrace) 0.5 appful vaginal 3XW 42.5 grams 2RF 60 days N95.2 - Postmenopausal atrophic vaginitis Coding Level of Care Code Tele Est Pt Level 3 (63510) Diagnoses Atrophic vaginitis N95.2 Hot flashes R23.2
--- OUTSIDE RECORDS SUMMARY | 2025-08-10 16:27 | XMS_ITS | Encounter Summary ---
Author Organization [facility] Address [address] [facility] [address] [place] [phone] Phone Care Team Providers Care Linoleum Floor Installer Name Role Phone Dayana Schmitz MD Primary Care Provid er Encounter Details Date Type Department Care Team (Late st Contact Info) Description 04/22/2024 Telephone [facility] [address] [place] [id number] Elizabeth Peters [place], [place] [address] [place] [address] [email or web address] Social History Tobacco Use Types Packs/Day Years [...] on filedocumented in this encounter Care Teams Linoleum Floor Installer Relationship Specialty Start Date End Date Dayana Schmitz MD [address] [place] [address] PCP - General Internal Medicine 12/13/18 documented as of this encounter Additional Source Comments The information contained in this document represents components of the legal health record. It is not the complete legal health record.[facility]
--- OUTSIDE RECORDS SUMMARY | 2025-08-10 16:27 | XMS_ITS | Clinical Summary ---
Author Organization [facility] Address [address] [facility] [address] [place] [address] Phone Care Team Providers Care Gear Technician Name Role Phone Dayana Schmitz MD Primary [...] on file Insurance [employer] [facility] [place] [address] Care Teams Gear Technician Relationship Specialty Start Date End Date Dayana Schmitz MD [address] [place] [address] PCP - General Internal Medicine 12/13/18 Additional Source Comments The information contained in this document represents components of the legal health record. It is not the complete legal health record.[facility]
--- OUTSIDE RECORDS SUMMARY | 2025-08-10 16:27 | XMS_ITS | Data Portability ---
Author Organization [place] [facility] Address [address] [place] [id number] Care Team Providers Care Aged Or Disabled Care Worker Name Role Phone YUNG LINCOLN Primary Care [...] better spirits and walked team to door. [email or web address] Not available 09/28/2021 16:33:54 Plan of Treatment Reminders Order Date Submit Date Provider Last Modified By Organization Details Last Modified Time Details Appointments None recorded. Lab amylase, serum or plasma 2021 GIANLUCA [facility] (Centralized Electronic Ordering - All Locations), Patient Can Go To The Location Of Their Choice, [address] 16:04:41 lipase, serum or plasma 2021 GIANLUCA [facility] (Centralized Electronic Ordering - All Locations), Patient Can Go To The Location Of Their Choice, [address] 16:04:47 BMP + ionized calcium, serum or plasma 2021 [facility], [address] [place] [address], [phone], 13:28:25 Referral None recorded. Procedures None recorded. Surgeries None recorded. Imaging None recorded. Medication Orders sodium chloride 0.9 % intravenous solution 2021 jrodrigue [email or web address] Not available 12:20:36 Zofran 2 mg/mL intravenous solution 2021 jrodrigue [email or web address] Not available 12:20:37 Patient TargetsNo targets recorded. Patient Instructions Encounter Date Encounter Id Patient Instructions Last Modified By Organization Details Last Modified Time 09/28/2021 [id number] pancreatitis: ca re instructions [id number] 3 Not available 09/28/2021 11:09:10 diet for chronic pancreatitis: care instructions [id number] 3 Not available 09/28/2021 11:09:16 learning about a cute pancreatitis [email or web address] 3 Not available 09/28/2021 11:09:15 [facility], [facility], diarrhea, and abdominal [...] caused by toxins released from food that g oes bad as well as some types of [...] disease, do not use Tylenol. Ask your INSULATION AND FLOORING ASSEMBLER how to address fever if you are concerned about Tylenol use. 3) Anti-diarrheal medicines: These are available wbho-[id number]-opfmksu, but in some cases are not recommended and can even worsen some cases of intestinal problems. Ask your INSULATION AND FLOORING ASSEMBLER if you should use them. In children [...] with one of the PCP suggestions from [facility]. SEEK CARE IMMEDIATELY IF: 1) You [...] in your condition between 8am-10pm, please call [facility] at [phone] to help navigate your care. Thank you for your visit with [facility] today. You were seen today for [...] condition between 8am-10pm, please call [facility] at [phone] to help navigate your care. [email or web address] 3 Not available 09/28/2021 12:51:20 Reason for Referral None Reported. Results Created Date Observation Date Name Description Value Unit Range Abnormal Flag Note LastModifiedBy Organization Detail LastModifiedTime 09/28/19 22 09/28/2021 AMYLA SE amylase 44 U/L (28-10 0) Not Available [facility] (Centralized Electronic Ordering - All Locations) Patient Can Go To The Location Of Their Choice, [id number] 09/28/2021 16:04:40 09/28/19 22 09/28/2021 LIPAS E lipase 14 U/L (13-60 ) Not Available [facility] (Centralized Electronic Ordering - All Locations) Patient Can Go To The Location Of Their Choice, [id number] 09/28/2021 16:04:47 09/28/19 22 09/28/2021 BMP + IONIZ ED CALCI UM, SERUM OR PLASM A glu 121 mg/dL 70-105 Not Available [facility] [address] [place], [address], 09/28/2021 13:28:25 09/28/19 22 09/28/2021 BMP + IONIZ ED CALCI UM, SERUM OR PLASM A BUN 10 mg/dL 8-26 Not Available [facility] [address] [place], [address], 09/28/2021 13:28:25 09/28/19 22 09/28/2021 BMP + IONIZ ED CALCI UM, SERUM OR PLASM A crea 0.7 mg/dL 0.6-1. 3 Not Available [facility] [address] [place], [address], 09/28/2021 13:28:25 09/28/19 22 09/28/2021 BMP + IONIZ ED CALCI UM, SERUM OR PLASM A Na 139 mmol/ L 138-14 6 Not Available [address], [address], 09/28/2021 13:28:25 09/28/19 22 09/28/2021 BMP + IONIZ ED CALCI UM, SERUM OR PLASM A K 4.5 mmol/ L 3.5-4. 9 Not Available [address], [address], 09/28/2021 13:28:25 09/28/19 22 09/28/2021 BMP + IONIZ ED CALCI UM, SERUM OR PLASM A cL 103 mmol/ L 98-109 Not Available [address], [address], 09/28/2021 13:28:25 09/28/19 22 09/28/2021 BMP + IONIZ ED CALCI UM, SERUM OR PLASM A TCO2 24 mmol/ L 24-29 Not Available [address], [address], 09/28/2021 13:28:25 09/28/19 22 09/28/2021 BMP + IONIZ ED CALCI UM, SERUM OR PLASM A angap 17 mmol/ L 10-20 Not Available [address], [address], 09/28/2021 13:28:25 09/28/19 22 09/28/2021 BMP + IONIZ ED CALCI UM, SERUM OR PLASM A ica 1.12 mmol/ L 1.12-1 .32 Not Available [address], [address], 09/28/2021 13:28:25 09/28/19 22 09/28/2021 BMP + IONIZ ED CALCI UM, SERUM OR PLASM A HCT 46 %pcv 38-51 Not Available [address] [place], [address], 09/28/2021 13:28:25 09/28/19 22 09/28/2021 BMP + IONIZ ED CALCI UM, SERUM OR PLASM A Hb 15.6 g/dL 12-17 Not Available [facility] [address] [place], [address], 09/28/2021 13:28:25 Result Notes None recorded. Procedures Surgical History Date Name Laterality Status Provider Name and Address Organization Details Recorded Time IV Start Procedure - completed February KRISTA Sullivan [address], [place], [address], [place] [facility] 09/28/2021 14:36:32 Imaging Results [...] DIRECTED BY GASTROEN TEROLOGY DEPARTME NT AT [facility] active Not Available Not Available No t Available Adult Probiotic 3 billion cell capsule 3000 MMU CELLS PO DAILY ADMINIST ER WITH A MEAL active Not Available Not Available No t Available Vitals Date Recorded Oxygen saturation Respiratory rate Heart rate Body temperature Heart rate Systolic And Diastolic Provider Name and Address Organization Details Last Updated DateTime 97 % 18 /min 140 /min 99.3 [degF] 120 /min 130/86 mm[Hg] Not Available [facility] 11:03:48 Social History Question Answer Notes LastModified by [employer] Details LastModified Time Tobacco Smoking Status Never Smoker February Nate, KRISTA [address], [place], [address], [place] [facility] 09/28/2021 11:56:21 Do You Have An Advance Directive? No [email or web address] Information not available 09/28/2021 What Is Your Code Status? Full Code [email or web address] Information not available 09/28/2021 Within The Past 12 Months, Has It Happened That The Food You Bought Just Didn't Last And You Didn't Have Money To Get More. No Information not available 09/28/2021 Within The Past 12 Months, Have You Worried That Your Food Would Run Out Before You Got Money To Buy More. No [email or web address] Information not available 09/28/2021 Fall Risk: Do You Feel Unsteady When Standing Or Walking? No [email or web address] Information not available 09/28/2021 Excessive Alcohol Or Drug Use No [email or web address] Information not available 09/28/2021 Does This Patient Have A PCP? Yes [email or web address] Information not available 09/28/2021 Would You Like Help Connecting To Resources? None [email or web address] Information not available 09/28/2021 Sex: Unknown Functional Status Question Answer Note LastModified by [employer] Details LastModified Time Do you use any illicit or recreational drugs? No [email or web address] Information not available 09/28/2021 What is your level of alcohol consumption? Moderate [email or web address] Information not available 09/28/2021 Mental Status None recorded. Family History Relationship Description Onset Age of this Age Resolved Age Notes LastModified by Organization Details LastModified Time Father No current problems or disability [email or web address] Not available 0 09/28/2021 11:54:06 Mother No current problems or disability [email or web address] Not available 0 09/28/2021 11:54:06 Mother Diabetes mellitus [email or web address] Not available 11:54:38 Mother Hypertensive disorder [email or web address] Not available 11:54:53 Medical History No medical history recorded. Gynecological HistoryNo gynecological history recorded. Obstetrics History GPAL:G 0 P 0 0 0 0 Past Encounters Encounter ID Performer Location Encounter Start Date Encounter Closed Date Diagnosis/Indication Diagnosis SNOMED-CT Code Diagnosis ICD10 Code Diagnosis IMO Codes Diagnosis Note [id number] February KRISTA [facility] [address] [facility] JORDYN NARINDER [id number] 09/28/2021 10:44:50 09/30/2021 12:03:39 Pancreatitis 60280339 K85.90 Nausea, vo miting and diarrhea 6570491 R11.2 Abdominal pain 25076745 R10.9 Health Concerns Section Related Observation LastModified by Organization Detai ls LastModified Time None Recorded Concern Status LastModified by Organization Details LastModified Time None Recorded Advance Directives Directive N: Payers Insurance Date Sequence Insurance Name Policy Number Policy Gee Covered Member ID Ege Member ID Guarantor Name 12/18/2021 1 *SELF PAY* Narinder duff Gerber 09/28/2021 1 [facility] BuyWithMe NET PLAN (MEDICAID HMO) Amarilis Gerber [id number] Amarilis Gerber 09/28/2021 1 *SELF PAY* Amarilis Gerber [id number] Amarilis Gerber 09/30/2021 1 *SELF PAY* Amarilis Gerber [id number] Amarilis Gerber 12/18/2021 1 [facility] PLAN (MEDICAID HMO) [id number] Amarilis Gerber [id number] Amarilis Gerber Notes Date Note Type Note Provider Name and Address Organization Details Recorded Time 09/28/2021 text/html General HPI Template - DHReported by Patient 51 year old female patient complains of N/V/D, and exacerbation of [...] Covid or Influenza. February KRISTA Sullivan [address], [place], [address], [place] [facility] 10/01/2021 01:49:43 OBGyn Episode No OBEpisode recorded.
== END 2025-08-10 12:52 | disposition home or self-care (01) ==
LOC: HO.HWS 12:38
PROVIDERS: PCP Internal Medicine; Visit Provider Obstetrics & Gynecology
DX: N95.2 Postmenopausal atrophic vaginitis (principal); R23.2 Flushing
CPT/HCPCS: 99213

== ENCOUNTER 2025-08-12 08:49 | Outpatient (REF) | payer OTHER, SELFPAY ==
--- NOTE | ~2025-08-12 | MM_ITS ---
EXAMINATION: MM SCREENING DIGITAL BREAST TOMOSYNTHESIS, BILATERAL CLINICAL INFORMATION: Screening. Asymptomatic. COMPARISON: Mammography: Comparison is made with available priors TECHNIQUE: Digital breast mammography with tomosynthesis is performed in both the craniocaudal and mediolateral oblique views along with computer-aided detection (CAD). FINDINGS: There are scattered areas of fibroglandular density. Left: Focal asymmetry upper outer breast stable. There are no significant masses, abnormal calcifications, or other abnormalities. Right: Questionable architectural distortion upper central breast middle depth. No suspicious calcifications or other abnormal findings. MM/MM tomosynthesis screening BI IMPRESSION: Additional imaging is recommended ASSESSMENT: BI-RADS Category 0: Incomplete - Need additional Imaging Evaluation RECOMMENDATION: 1. Additional views of the right breast. 2. Targeted ultrasound if warranted after review of the additional views. 3. Radiology department staff will contact the patient for additional imaging. Additional Imaging required Electronically signed by: Radha Morel DO 08/15/2025 05:59 PM EST
--- OUTSIDE RECORDS SUMMARY | 2025-08-12 08:52 | XMS_ITS | Encounter Summary ---
Author Organization [facility] Address [address] [place] [address] Phone Care Team Providers Care Piercing Machine Operator Name Role Phone Dayana Schmitz MD Primary Care Provid er Encounter Details Date Type Department Care Team (Late st Contact Info) Description 04/22/2024 Telephone [facility] [address] [place] [address] Elizabeth Peters [place], [place] [address] [place] [address] [email or web address] Social History Tobacco Use Types Packs/Day Years [...] on filedocumented in this encounter Care Teams Piercing Machine Operator Relationship Specialty Start Date End Date Dayana Schmitz MD [address] [place] [address] PCP - General Internal Medicine 12/13/18 documented as of this encounter Additional Source Comments The information contained in this document represents components of the legal health record. It is not the complete legal health record.[facility]
--- OUTSIDE RECORDS SUMMARY | 2025-08-12 08:52 | XMS_ITS | Clinical Summary ---
Author Organization [facility] Address [address] [place] [address] Phone Care Team Providers Care Casing Running Machine Tender Name Role Phone Dayana Schmitz MD Primary [...] on file Insurance [employer] [facility] [place] [address] Care Teams Casing Running Machine Tender Relationship Specialty Start Date End Date Dayana Schmitz MD [address] [place] [address] PCP - General Internal Medicine 12/13/18 Additional Source Comments The information contained in this document represents components of the legal health record. It is not the complete legal health record.[facility]
--- OUTSIDE RECORDS SUMMARY | 2025-08-12 08:52 | XMS_ITS | Data Portability ---
Author Organization [facility] Address [address] [place] [address] Care Team Providers Care Sales Representative Publications Name Role Phone YUNG LINCOLN Primary Care Provider [phone] Assessment Encounter Date Assessment Date Assessment LastModified [...] better spirits and walked team to door. Not available 09/28/2021 16:33:54 Plan of Treatment Reminders Order Date Submit Date Provider Last Modified By Organization Details Last Modified Time Details Appointments None recorded. Lab amylase, serum or plasma 2021 GIANLUCA [facility] (Centralized Electronic Ordering - All Locations), Patient Can Go To The Location Of Their Choice, [address] 16:04:41 lipase, serum or plasma 2021 GIANLUCA [facility] (Centralized Electronic Ordering - All Locations), Patient Can Go To The Location Of Their Choice, [id number] 16:04:47 BMP + ionized calcium, serum or plasma 2021 [facility], [address] [place] [address], [address], 13:28:25 Referral None recorded. Procedures None recorded. Surgeries None recorded. Imaging None recorded. Medication Orders sodium chloride 0.9 % intravenous solution 2021 jrodrigue [email or web address] Not available 12:20:36 Zofran 2 mg/mL intravenous solution 2021 jrodrigue z783 Not available 12:20:37 Patient TargetsNo targets recorded. Patient Instructions Encounter Date Encounter Id Patient Instructions Last Modified By Organization Details Last Modified Time 09/28/2021 [id number] pancreatitis: ca re instructions [email or web address] 3 Not available 09/28/2021 11:09:10 diet for chronic pancreatitis: care instructions [email or web address] 3 Not available 09/28/2021 11:09:16 learning about a cute pancreatitis [email or web address] 3 Not available 09/28/2021 11:09:15 [facility], vomiting, diarrhea, and abdominal [...] disease, do not use Tylenol. Ask your SMOOTH AND BURR WORKER COMPOSITES how to address fever if you are concerned about Tylenol use. 3) Anti-diarrheal medicines: These are available ktua-[id number]-[id number], but in some cases are not recommended and can even worsen some cases of intestinal problems. Ask your SMOOTH AND BURR WORKER COMPOSITES if you should use them. In children [...] with one of the PCP suggestions from [facility]. SEEK CARE IMMEDIATELY IF: 1) [...] in your condition between 8am-10pm, please call [facility] at [phone] to help navigate your care. Thank you for your visit with [facility] today. You were seen today [...] condition between 8am-10pm, please call [facility] at [phone] to help navigate your care. [email or web address] 3 Not available 09/28/2021 12:51:20 Reason for Referral None Reported. Results Created Date Observation Date Name Description Value Unit Range Abnormal Flag Note LastModifiedBy Organization Detail LastModifiedTime 09/28/19 22 09/28/2021 AMYLA SE amylase 44 U/L (28-10 0) Not Available [facility] (Centralized Electronic Ordering - All Locations) Patient Can Go To The Location Of Their Choice, [id number] 09/28/2021 16:04:40 09/28/19 22 09/28/2021 LIPAS E lipase 14 U/L (13-60 ) Not Available [facility] (Centralized Electronic Ordering - All Locations) Patient Can Go To The Location Of Their Choice, [id number] 09/28/2021 16:04:47 09/28/19 22 09/28/2021 BMP + IONIZ ED CALCI UM, SERUM OR PLASM A glu 121 mg/dL 70-105 Not Available [facility] [address] [place], [address], 09/28/2021 13:28:25 09/28/19 22 09/28/2021 BMP + IONIZ ED CALCI UM, SERUM OR PLASM A BUN 10 mg/dL 8-26 Not Available [facility] [address] [place], [address], 09/28/2021 13:28:25 09/28/19 22 09/28/2021 BMP + IONIZ ED CALCI UM, SERUM OR PLASM A crea 0.7 mg/dL 0.6-1. [address] [facility] [address] [place], [address], 09/28/2021 13:28:25 09/28/19 22 09/28/2021 BMP + IONIZ ED CALCI UM, SERUM OR PLASM A Na 139 mmol/ L 138-14 6 Not Available [address], [address], 09/28/2021 13:28:25 09/28/19 22 09/28/2021 BMP + IONIZ ED CALCI UM, SERUM OR PLASM A K 4.5 mmol/ L 3.5-4. 9 Not Available [address], [address], 09/28/2021 13:28:25 09/28/19 22 09/28/2021 BMP + IONIZ ED CALCI UM, SERUM OR PLASM A cL 103 mmol/ L 98-109 Not Available [address], [address], 09/28/2021 13:28:25 09/28/19 22 09/28/2021 BMP + IONIZ ED CALCI UM, SERUM OR PLASM A TCO2 24 mmol/ L 24-29 Not Available [address], [address], 09/28/2021 13:28:25 09/28/19 22 09/28/2021 BMP + IONIZ ED CALCI UM, SERUM OR PLASM A angap 17 mmol/ L 10-20 Not Available [address], [address], 09/28/2021 13:28:25 09/28/19 22 09/28/2021 BMP + IONIZ ED CALCI UM, SERUM OR PLASM A ica 1.12 mmol/ L 1.12-1 .32 Not Available [address], [address], 09/28/2021 13:28:25 09/28/19 22 09/28/2021 BMP + IONIZ ED CALCI UM, SERUM OR PLASM A HCT 46 %pcv 38-51 Not Available [address] [place], [address], 09/28/2021 13:28:25 09/28/19 22 09/28/2021 BMP + IONIZ ED CALCI UM, SERUM OR PLASM A Hb 15.6 g/dL 12-17 Not Available [facility] [address] [place], [address], 09/28/2021 13:28:25 Result Notes None recorded. Procedures Surgical History Date Name Laterality Status Provider Name and Address Organization Details Recorded Time IV Start Procedure - completed February KRISTA Sullivan [address], [place], [address], [place] [facility] 09/28/2021 14:36:32 Imaging Results [...] DIRECTED BY GASTROEN TEROLOGY DEPARTME NT AT [facility] active Not Available Not Available No [...] [degF] 120 /min 130/86 mm[Hg] Not Available [facility] 11:03:48 Social History Question Answer Notes LastModified by [employer] Details LastModified Time Tobacco Smoking Status Never Smoker February Nate, KRISTA [address], [place], [address], [place] [facility] 09/28/2021 11:56:21 Do You Have An Advance Directive? No [email or web address] Information not available 09/28/2021 What Is Your Code Status? Full Code [email or web address] Information not available 09/28/2021 Within The Past 12 Months, Has It Happened That The Food You Bought Just Didn't Last And You Didn't Have Money To Get More. No [email or web address] Information not available 09/28/2021 Within The Past 12 Months, Have You Worried That Your Food Would Run Out Before You Got Money To Buy More. No [email or web address] Information not available 09/28/2021 Fall Risk: Do You Feel Unsteady When Standing Or Walking? No [email or web address] Information not available 09/28/2021 Excessive Alcohol Or Drug Use No [email or web address] Information not available 09/28/2021 Does This Patient Have A PCP? Yes [email or web address] Information not available 09/28/2021 Would You Like Help Connecting To Resources? None [email or web address] Information not available 09/28/2021 Sex: Unknown Functional Status Question Answer Note LastModified by [employer] Details LastModified Time Do you use any illicit or recreational drugs? No [email or web address] Information not available 09/28/2021 What is your level of alcohol consumption? Moderate [email or web address] Information not available 09/28/2021 Mental Status None recorded. Family History Relationship Description Onset Age of this Age Resolved Age Notes LastModified by Organization Details LastModified Time Father No current problems or disability [email or web address] Not available 0 09/28/2021 11:54:06 Mother No current problems or disability [email or web address] Not available 0 09/28/2021 11:54:06 Mother Diabetes mellitus [email or web address] Not available 11:54:38 Mother Hypertensive disorder [email or web address] Not available 11:54:53 Medical History No medical history recorded. Gynecological HistoryNo gynecological history recorded. Obstetrics History GPAL:G 0 P 0 0 0 0 Past Encounters Encounter ID Performer Location Encounter Start Date Encounter Closed Date Diagnosis/Indication Diagnosis SNOMED-CT Code Diagnosis ICD10 Code Diagnosis IMO Codes Diagnosis Note [id number] February KRISTA [facility] [address] [facility] JORDYN NARINDER [address] 09/28/2021 10:44:50 09/30/2021 12:03:39 Pancreatitis [id number] K85.90 Nausea, vo miting and diarrhea 6538230 R11.2 Abdominal pain 21390078 R10.9 Health Concerns Section Related Observation LastModified by Organization Detai ls LastModified Time None Recorded Concern Status LastModified by Organization Details LastModified Time None Recorded Advance Directives Directive N: Payers Insurance Date Sequence Insurance Name Policy Number Policy Gee Covered Member ID Gee Member ID Guarantor Name 12/18/2021 1 *SELF PAY* Narinder duff Gerber 09/28/2021 1 [facility] [employer] NET PLAN (MEDICAID HMO) Amarilis Gerber [id number] Amarilis Gerber 09/28/2021 1 *SELF PAY* Amarilis Gerber [id number] Amarilis Gerber 09/30/2021 1 *SELF PAY* Amarilis Gerber 275 Amarilis Gerber 12/18/2021 1 [facility] PLAN (MEDICAID HMO) [id number] Amarilis Gerber [id number] Amarilis Gerber Notes Date Note Type Note [...] Covid or Influenza. February KRISTA Sullivan [address], [place], [address], [place] [facility] 10/01/2021 01:49:43 OBGyn Episode No OBEpisode recorded.
== END 2025-08-12 08:50 | disposition home or self-care (01) ==
LOC: HO.MAMMO 08:49
PROVIDERS: PCP Physician Assistant; Visit Provider Internal Medicine
DX: Z12.31 Encounter for screening mammogram for malignant neoplasm of breast (principal)
CPT/HCPCS: 77063; 77067

== ENCOUNTER → 2025-08-12 09:00 | Outpatient (BNV) | payer OTHER, SELFPAY | PROVIDERS: PCP Physician Assistant; Visit Provider Internal Medicine | DX: Z12.31 Encounter for screening mammogram for malignant neoplasm of breast (principal) | CPT/HCPCS: 77063; 77067 ==

== ENCOUNTER 2025-08-22 07:45 | Outpatient (REF) | payer OTHER, SELFPAY ==
--- NOTE | ~2025-08-22 | US_ITS ---
EXAMINATION: MM DIAGNOSTIC DIGITAL BREAST TOMOSYNTHESIS, RIGHT Limited right breast ultrasound. CLINICAL INFORMATION: Call back from screening for focal asymmetry in the right breast. COMPARISON: Mammography: [facility] on PACS. TECHNIQUE: Digital breast tomosynthesis is performed in both the craniocaudal and mediolateral oblique views along with computer-aided detection (CAD). Synthesized 2D images are generated from the tomosynthesis. FINDINGS: The breasts are heterogeneously dense, which may obscure small masses. Focal asymmetry with questioned architectural distortion in the upper central breast middle depth partially effaces with no persistent distortion. No suspicious calcifications or other abnormal findings. Targeted color Doppler ultrasound scanning in the upper central right breast demonstrates an incidental hypoechoic oval circumscribed solid mass versus complicated cyst at 11:00 5 cm from the nipple measuring 5 x 5 x 3 mm. Otherwise scanning from 10-2 o'clock demonstrates normal fibroglandular breast tissue. US/US Breast RT Limited Mamm Only IMPRESSION: 1. Focal asymmetry which partially effaces and without persistent distortion without sonographic correlate. Recommend 6 month follow-up for further evaluation of stability. 2. Solid mass versus complicated cyst on ultrasound 11:00 5 cm from nipple. Recommend 6 month follow-up for further evaluation of stability. ASSESSMENT: BI-RADS Category 3: Probably benign RECOMMENDATION: 6 Month F/U Results were provided to the patient at time of visit by the technologist. This patient's information was entered into a reminder system with a target due date for their next mammogram. Electronically signed by: Radha Morel DO 08/22/2025 09:03 AM [id number]
--- OUTSIDE RECORDS SUMMARY | 2025-08-22 09:10 | XMS_ITS | Encounter Summary ---
Author Organization [facility] Address [address] [place] [address] Phone Care Team Providers Care Lavatory Attendant Name Role Phone Dayana Schmitz MD Primary Care Provid er Encounter Details Date Type Department Care Team (Late st Contact Info) Description 04/22/2024 Telephone [facility] [address] [place] [address] [address] Peters [place], [place] [address] [place] [address] [email or web address] Social History Tobacco Use Types Packs/Day Years [...] on filedocumented in this encounter Care Teams Lavatory Attendant Relationship Specialty Start Date End Date Dayana Schmitz MD [address] [place] [address] PCP - General Internal Medicine 12/13/18 documented as of this encounter Additional Source Comments The information contained in this document represents components of the legal health record. It is not the complete legal health record.[facility]
--- OUTSIDE RECORDS SUMMARY | 2025-08-22 09:10 | XMS_ITS | Clinical Summary ---
Author Organization [facility] Address [address] [place] [address] Phone Care Team Providers Care Forge Operator Name Role Phone Dayana Schmitz MD [...] on file Insurance [employer] [facility] [place] [address] [id number] Care Teams Forge Operator Relationship Specialty Start Date End Date Dayana Schmitz MD [address] [place] [address] PCP - General Internal Medicine 12/13/18 Additional Source Comments The information contained in this document represents components of the legal health record. It is not the complete legal health record.[facility]
== END 2025-08-22 07:46 ==
LOC: HO.MAMMO 07:45
PROVIDERS: PCP Physician Assistant; Visit Provider Physician Assistant
DX: N64.89 Other specified disorders of breast (principal)
CPT/HCPCS: 76642; 77061; 77065

== ENCOUNTER → 2025-08-22 08:00 | Outpatient (BNV) | payer OTHER, SELFPAY | PROVIDERS: PCP Physician Assistant; Visit Provider Internal Medicine | DX: R92.8 Other abnormal and inconclusive findings on diagnostic imaging of breast (principal) | CPT/HCPCS: 76642; 77061; 77065 ==